=== PATIENT | male | born 1955 | race Caucasian/White ===

== ENCOUNTER 2020-01-22 00:52 | Emergency (ER) | payer MEDICARE, OTHER, SELFPAY ==
[2020-01-22 00:54] VITALS: BP 130/88; PULSE 113; RESP 20; TEMP 36.8; O2SAT 97; BMI 37.7
[2020-01-22] MEDS: 0.9% Normal Saline 1,000 ML 1000 ML IV (01:01)
[2020-01-22] MEDS: Ondansetron 4 MG/2 ML Vial IV (01:06)
[2020-01-22 01:08] LABS: Absolute Lymphocyte Count 1.21 X10^3/uL (0.83-4.51); Absolute Neutrophil Count 12.4 X10^3/uL (2.0-7.7); Basophil# 0.03 X10^3/uL; Basophil% 0.2 % (0-1); Hematocrit 42.8 % (40-54); Hemoglobin 13.7 g/dL (13.0-16.5); Lymphocyte # 1.21 X10^3/ul (4.0); Lymphocyte % 8.7 % (19-41); Mean Corpuscular Hgb 28.7 pg (27.0-32.0); Mean Corpuscular Volume 89.5 fL (80-94); Mean Platelet Vol. 12.5 fl (6.2-12.0); Monocyte# 0.31 X10^3/uL; Monocyte% 2.2 % (0-10); NRBC Flagged by Analyzer 0 % (0-5); Neutrophil # 12.35 X10^3/uL (2.7-7.7); Neutrophil % 88.4 % (47-70); Platelet Count 250 K/mm3 (150-450); RBC Distribution Width CV 12.7 % (11.6-14.6); RBC Distribution Width SD 41.1 fl (35.1-43.9); Red Blood Count 4.78 M/mm3 (4.6-6.2)
[2020-01-22] MEDS: Lidocaine 4% 5 ML Ampul 2 ML INHALATION (01:15)
[2020-01-22 01:17] LABS: International Normalized Ratio 1.2; Partial Thromboplast Time 26.1 Seconds (24.1-36.2); Prothrombin Time (Protime)PT. 14.5 SECONDS (11.7-14.9)
[2020-01-22 01:18] VITALS: PULSE 104; RESP 12
--- NOTE | 2020-01-22 01:21 | ED.DCSUM_ITS ---
- ER Visit Summary Date of Service: 01/22/20 Chief Complaint: Vomiting blood History of Present Illness: The patient is a 64 M presenting with complaints of hematemesis. Patient states he has had 6 episodes of hematemesis today. He also noted black stool this morning. He is not on anticoagulants. No history of similar symptoms in the past. He denies abdominal pain. Denies chest pain or shortness of breath. Complains of lightheadedness,no syncope. Denies other complaints. Physical Examination: Vitals are stable. Patient is afebrile. Alert no acute distress. HEENT exam is unremarkable. Neck is supple. Lungs are clear and equal bilaterally. Heart is regular rate and rhythm. Abdomen is soft nontender nondistended. No guarding or rebound Extremities are unremarkable. Skin is warm and dry. No focal neurologic deficit. Remainder of exam is unremarkable. Emergency Department Course and Treatment: EKG is sinus tachycardia rate of 104. Patient was given lidocaine aerosol. NG tube was placed. He had 100 cc of coffee-ground emesis returned. CBC shows a white count of 14, hemoglobin 13.7. Chemistries show glucose 181, BUN 42. Coags are normal. He was given IV fluids and Protonix. Discussed with Dr. Morin who recommends tertiary care center with GI coverage. Discussed with [facility] for transfer. Disposition: Transfer [facility] Impression: GI bleed This note was generated with [employer] dictation software. It may contain incorrect words, spelling, and punctuation that were not noted in review of the chart prior to signing ED Disposition - Plan for ED Patient: Referrals: Rick Zarate MD [Primary Care Provider] -
[2020-01-22 01:28] LABS: AST(SGOT) 12 U/L (15-37); Alanine Aminotransfer ALT/SGPT 25 U/L (16-61); Albumin, Serum 3.5 g/dL (3.2-5.0); Alkaline Phosphatase 75 U/L (45-117); Anion Gap 12 (5-15); BUN 42 mg/dL (7-18); Calcium,Total 8.7 mg/dL (8.5-10.1); Chloride 105 mmol/L (98-107); EST Glomerular Filtration Rate 79 mL/min (>60); Est Glom Filt Rate - Afr Amer 96 mL/min (>60); Estimated Creatinine Clearance 77.39 ml/min; Globulin 3.4 g/dL (2.2-4.2); Glucose 181 mg/dL (74-106); Potassium 4.3 mmol/L (3.5-5.1); Protein, Total 6.9 g/dL (6.4-8.2); Sodium Level 142 mmol/L (136-145)
--- NOTE | 2020-01-22 01:31 | EKG12_ITS ---
Test Reason : GI BLEED Blood Pressure : / mmHG Vent. Rate : 104 BPM Atrial Rate : 104 BPM P-R Int : 152 ms QRS Dur : 080 ms QT Int : 392 ms P-R-T Axes : 041 015 079 degrees QTc Int : 515 ms Sinus tachycardia Possible Left atrial enlargement Borderline ECG Confirmed by JUSTIN VELAZCO, SHIRA ([id number]), loan expeditor BRONWYN BOSTON ([id number]) on 01/26/2020 10:02:42 AM Referred By: Confirmed By:SHIRA ANDERSON MD
[2020-01-22] MEDS: Oxymetazoline 0.05% 1 SPRAY SPRAY.BTL NASAL (01:37)
--- NOTE | 2020-01-22 01:58 | RAD_ITS ---
HISTORY: NG TUBE PLACEMENT EXAMINATION/TECHNIQUE: XR Abdomen 1 View: Portable upright COMPARISON: Chest x-ray 09/30/2015 FINDINGS: Single portable view of the lower chest and upper abdomen. The pelvis and lower abdomen were not imaged. LINES AND TUBES: Enteric tube in place with the distal tube in the region of the stomach body. Nonobstructive bowel gas pattern. Surgical clips in the region of the gallbladder fossa. Left lower lobe 2.4 cm circumscribed nodular opacity which appears stable. RAD/Abdomen Single View (Portable) IMPRESSION: 1. Good position of the enteric tube. 2. Nonobstructive bowel gas pattern. No acute abdominal disease identified. at 0335 Reported and signed by: Alvarado Stephen MD Electronically Signed: Alavrado Stephen, at 3:34 EDT Tel , Service support ,
[2020-01-22 02:36] LABS: Hemoglobin 12.5 g/dL (13.0-16.5)
[2020-01-22 02:52] VITALS: BP 117/75; PULSE 91; RESP 15; O2SAT 88
--- NOTE | 2020-01-22 03:08 | NURSING ---
02 drop to 88%. )2 at 2lnc appilied
[2020-01-22 03:34] VITALS: BP 108/75; PULSE 88; RESP 16; O2SAT 95
[2020-01-22 04:00] VITALS: BP 128/78; PULSE 90; RESP 16; O2SAT 98
[2020-01-22 04:42] VITALS: BP 128/78; PULSE 90; RESP 16; TEMP 36.6; O2SAT 98
== END 2020-01-22 04:45 | disposition short-term general hospital (02) ==
LOC: ED 01:22
PROVIDERS: Emergency Provider Emergency Medicine; PCP Family Medicine
DX: K92.0 Hematemesis (principal); K92.1 Melena
CPT/HCPCS: 74018; 80053; 82274; 85018; 85025; 85610; 85730; 93005; 94640; 96361; 96365; 96375; 99285; J7030; J2405

== ENCOUNTER → 2020-04-17 14:18 | Outpatient (CLI) | payer MEDICARE, OTHER, SELFPAY ==
[2020-04-17 18:04] LABS: Erythrocyte Sedimentation Rate 12 mm/hr (0-20)
[2020-04-17 18:07] LABS: Absolute Lymphocyte Count 1.55 X10^3/uL (0.83-4.51); Absolute Neutrophil Count 4.9 X10^3/uL (2.0-7.7); Basophil# 0.05 X10^3/uL; Basophil% 0.7 % (0-1); Eosinophil# 0.01 X10^3/uL; Eosinophils% 0.1 % (0-5); Hematocrit 44.5 % (40-54); Hemoglobin 13.4 g/dL (13.0-16.5); Lymphocyte # 1.55 X10^3/ul (4.0); Lymphocyte % 21.6 % (19-41); Mean Corp Hgb Conc 30.1 g/dL (32-36); Mean Corpuscular Hgb 24.9 pg (27.0-32.0); Mean Corpuscular Volume 82.7 fL (80-94); Mean Platelet Vol. 11.9 fl (6.2-12.0); Monocyte# 0.67 X10^3/uL; Monocyte% 9.3 % (0-10); NRBC Flagged by Analyzer 0 % (0-5); Neutrophil # 4.86 X10^3/uL (2.7-7.7); Neutrophil % 67.9 % (47-70); Platelet Count 306 K/mm3 (150-450); RBC Distribution Width SD 45.2 fl (35.1-43.9); Red Blood Count 5.38 M/mm3 (4.6-6.2); White Blood Count 7.2 K/mm3 (4.4-11.0)
[2020-04-17 18:27] LABS: ALB/GLOB Ratio 0.7 RATIO (0.9-2.4); AST(SGOT) 21 U/L (15-37); Alanine Aminotransfer ALT/SGPT 20 U/L (16-61); Albumin, Serum 2.7 g/dL (3.2-5.0); Alkaline Phosphatase 151 U/L (45-117); Anion Gap 7 (5-15); BUN 12 mg/dL (7-18); BUN/Creat Ratio 12.1 RATIO (10-20); Chloride 102 mmol/L (98-107); Creatinine, Serum 0.99 mg/dL (0.70-1.30); EST Glomerular Filtration Rate 80 mL/min (>60); Est Glom Filt Rate - Afr Amer 97 mL/min (>60); Glucose 73 mg/dL (74-106); Magnesium 2.1 mg/dL (1.6-2.6); Potassium 3.8 mmol/L (3.5-5.1); Protein, Total 6.7 g/dL (6.4-8.2); Sodium Level 134 mmol/L (136-145)
== END ==
PROVIDERS: PCP Family Medicine; Referring Provider Family Medicine; Visit Provider Family Medicine
DX: I42.9 Cardiomyopathy, unspecified (principal)
CPT/HCPCS: 36415; 80053; 83735; 85025; 85652

== ENCOUNTER → 2020-04-18 14:33 | Outpatient (CLI) | payer MEDICARE, OTHER, SELFPAY | PROVIDERS: PCP Family Medicine; Referring Provider Family Medicine; Visit Provider Family Medicine | DX: R19.7 Diarrhea, unspecified (principal) | CPT/HCPCS: 87177; 87209; 87506 ==

== ENCOUNTER → 2020-05-08 11:43 | Outpatient (CLI) | payer MEDICARE, OTHER, SELFPAY ==
[2020-05-08 15:59] LABS: ALB/GLOB Ratio 0.7 RATIO (0.9-2.4); AST(SGOT) 41 U/L (15-37); Alanine Aminotransfer ALT/SGPT 49 U/L (16-61); Alkaline Phosphatase 127 U/L (45-117); Anion Gap 10 (5-15); BUN 15 mg/dL (7-18); BUN/Creat Ratio 12.7 RATIO (10-20); CRP, High Sensitivity Cardiac 7.01 mg/L; Calcium,Total 8.6 mg/dL (8.5-10.1); Chloride 100 mmol/L (98-107); Creatinine, Serum 1.18 mg/dL (0.70-1.30); EST Glomerular Filtration Rate 66 mL/min (>60); Est Glom Filt Rate - Afr Amer 79 mL/min (>60); Globulin 4.1 g/dL (2.2-4.2); Glucose 94 mg/dL (74-106); Magnesium 2.1 mg/dL (1.6-2.6); Potassium 4.2 mmol/L (3.5-5.1); Protein, Total 7.1 g/dL (6.4-8.2); Sodium Level 132 mmol/L (136-145)
[2020-05-08 16:20] LABS: BNP,B-Type NATRIURETIC PEPTIDE 1735.9 pg/mL (0-100)
== END ==
PROVIDERS: PCP Family Medicine; Referring Provider Family Medicine; Visit Provider Family Medicine
DX: I42.9 Cardiomyopathy, unspecified (principal); E78.5 Hyperlipidemia, unspecified; R00.0 Tachycardia, unspecified
CPT/HCPCS: 36415; 80053; 83735; 83880; 86141

== ENCOUNTER → 2020-05-17 13:32 | Outpatient (CLI) | payer MEDICARE, OTHER, SELFPAY ==
--- NOTE | 2020-05-17 13:34 | ECHOCS_ITS ---
Reason For Study: Cardiomyopathy Procedure This was a 2D Doppler, Color Flow transthoracic echocardiogram. The study was technically difficult. Contrast injection was performed. Exam performed in department. Left Ventricle Moderately dilated left ventricle. Severe global left ventricular systolic dysfunction. The estimated ejection fraction is 10 %. There is evidence of diastolic dysfunction. Right Ventricle Moderately dilated right ventricle. Moderate global right ventricular systolic dysfunction. Atria The left atrium is severely enlarged. The right atrium is moderately enlarged. No doppler evidence for ASD. Mitral Valve There is no mitral annular calcification. Mild diffuse mitral valve thickening. Mild papillary muscle dysfunction of the mitral valve. Moderate (2+) mitral valve insufficiency. Tricuspid Valve Normal tricuspid valve. Mild tricuspid valve insufficiency. Right ventricular systolic pressure estimated to be 48 mmHg. Aortic Valve Trisinus/trileaflet aortic valve. Normal aortic valve. Trivial aortic valve insufficiency. Pulmonic Valve The pulmonic valve is not well visualized. Trivial pulmonic valve insufficiency. Great Vessels Normal sized aortic root. Pericardium/Pleural Trivial pericardial effusion. There are no echocardiographic indications of cardiac tamponade. Medication Diluted definity 2ml given slow IV push to enhance endocardial definition. MMode/2D Measurements & Calculations LVIDd: 6.3 cm IVSd: 1.0 cm Ao root diam: 3.5 cm LVIDs: 5.6 cm LVPWd: 1.2 cm RVDd: 4.6 cm FS: 10.6 % LAV(MOD-bp): 104.3 ml LA A4 area: 31.1 cm2 LA dimension(2D): 5.9 cm LAV(MOD-bp) Indexed: 45.8 ml/m2 LAV(MOD-sp2): 87.3 ml LAV(MOD-sp4): 112.2 ml RA A4 area: 25.8 cm2 Doppler Measurements & Calculations MV E max erik: 110.7 cm/sec Lat Peak E' Erik: 6.3 cm/sec Med Peak E' Erik: 4.7 cm/sec MV A max erik: 37.2 cm/sec E/E' lat: 17.6 E/E' med: 23.8 MV E/A: 3.0 Ao V2 max: 85.9 cm/sec LV V1 max: 67.2 cm/sec PA V2 max: 56.5 cm/sec Ao max P.0 mmHg LV V1 max P.8 mmHg TR max erik: 332.4 cm/sec TR max P.7 mmHg Interpretation Summary The study was technically difficult. Contrast injection was performed. Moderately dilated left ventricle. Severe global left ventricular systolic dysfunction. The estimated ejection fraction is 10 %. Moderately dilated right ventricle. Moderate global right ventricular systolic dysfunction. The left atrium is severely enlarged. The right atrium is moderately enlarged. Mild diffuse mitral valve thickening. Mild papillary muscle dysfunction of the mitral valve. Moderate (2+) mitral valve insufficiency. Mild tricuspid valve insufficiency. Trivial aortic valve insufficiency. Trivial pulmonic valve insufficiency. Trivial pericardial effusion. There are no echocardiographic indications of cardiac tamponade. Right ventricular systolic pressure estimated to be 48 mmHg. There is evidence of diastolic dysfunction. Ordering Physician: Rick Zarate Referring Physician: Rick Zarate Performed By: Katty Watt RDCS
== END ==
PROVIDERS: PCP Family Medicine; Referring Provider Family Medicine; Visit Provider Family Medicine
DX: I42.9 Cardiomyopathy, unspecified (principal)
CPT/HCPCS: 93306; Q9957; A4216; C8929

== ENCOUNTER → 2020-07-13 12:44 | Outpatient (CLI) | payer MEDICARE, OTHER, SELFPAY ==
[2020-07-13 15:11] LABS: Absolute Lymphocyte Count 2.78 X10^3/uL (0.83-4.51); Absolute Neutrophil Count 5.2 X10^3/uL (2.0-7.7); Basophil# 0.08 X10^3/uL; Basophil% 0.9 % (0-1); Eosinophil# 0.03 X10^3/uL; Eosinophils% 0.3 % (0-5); Hematocrit 46.4 % (40-54); Hemoglobin 13.9 g/dL (13.0-16.5); Lymphocyte # 2.78 X10^3/ul (4.0); Lymphocyte % 31.5 % (19-41); Mean Corpuscular Hgb 22.6 pg (27.0-32.0); Mean Corpuscular Volume 75.3 fL (80-94); Mean Platelet Vol. 10.5 fl (6.2-12.0); Monocyte# 0.74 X10^3/uL; Monocyte% 8.4 % (0-10); NRBC Flagged by Analyzer 0 % (0-5); Neutrophil # 5.17 X10^3/uL (2.7-7.7); Neutrophil % 58.7 % (47-70); POSITIVE MORPHOLOGY YES; Platelet Count 391 K/mm3 (150-450); RBC Distribution Width CV 22.6 % (11.6-14.6); RBC Distribution Width SD 57.1 fl (35.1-43.9); Red Blood Count 6.16 M/mm3 (4.6-6.2); White Blood Count 8.8 K/mm3 (4.4-11.0)
[2020-07-13 15:17] LABS: Differential Indicated SCAN CRITERIA MET
[2020-07-13 15:50] LABS: BNP,B-Type NATRIURETIC PEPTIDE 2159.2 pg/mL (0-100)
[2020-07-13 15:58] LABS: Anisocytosis RARE; Microcytosis RARE; Ovalocyte RARE; Platelet Estimate ADEQUATE (ADEQ); Target Cells RARE
[2020-07-13 16:14] LABS: ALB/GLOB Ratio 0.8 RATIO (0.9-2.4); AST(SGOT) 18 U/L (15-37); Alanine Aminotransfer ALT/SGPT 19 U/L (16-61); Albumin, Serum 3.1 g/dL (3.2-5.0); Alkaline Phosphatase 193 U/L (45-117); Anion Gap 9 (5-15); BUN 19 mg/dL (7-18); BUN/Creat Ratio 18.3 RATIO (10-20); Calcium,Total 8.9 mg/dL (8.5-10.1); Chloride 102 mmol/L (98-107); Creatinine, Serum 1.04 mg/dL (0.70-1.30); EST Glomerular Filtration Rate 76 mL/min (>60); Est Glom Filt Rate - Afr Amer 92 mL/min (>60); Globulin 3.9 g/dL (2.2-4.2); Glucose 79 mg/dL (74-106); Potassium 4.5 mmol/L (3.5-5.1); Sodium Level 134 mmol/L (136-145); Uric Acid 8.7 mg/dL (3.5-7.2)
== END ==
PROVIDERS: PCP Family Medicine; Referring Provider Family Medicine; Visit Provider Family Medicine
DX: I42.9 Cardiomyopathy, unspecified (principal); M10.9 Gout, unspecified
CPT/HCPCS: 36415; 80053; 83880; 84550; 85025

== ENCOUNTER → 2020-11-07 08:45 | Outpatient (CLI) | payer MEDICARE, OTHER, SELFPAY ==
[2020-11-07 10:38] LABS: Anion Gap 8 (5-15); BUN 18 mg/dL (7-18); BUN/Creat Ratio 21.2 RATIO (10-20); Calcium,Total 8.8 mg/dL (8.5-10.1); Chloride 100 mmol/L (98-107); Creatinine, Serum 0.85 mg/dL (0.70-1.30); EST Glomerular Filtration Rate 96 mL/min (>60); Est Glom Filt Rate - Afr Amer 116 mL/min (>60); Glucose 77 mg/dL (74-106); Potassium 4.1 mmol/L (3.5-5.1); Sodium Level 136 mmol/L (136-145)
== END ==
PROVIDERS: PCP Family Medicine
DX: I50.41 Acute combined systolic (congestive) and diastolic (congestive) heart failure (principal); I25.10 Atherosclerotic heart disease of native coronary artery without angina pectoris; I95.9 Hypotension, unspecified
CPT/HCPCS: 36415; 80048

== ENCOUNTER 2021-06-27 09:57 | Outpatient (CLI) | payer MEDICARE, OTHER, SELFPAY ==
[2021-06-27 12:25] LABS: Absolute Neutrophil Count 4.9 X10^3/uL (2.0-7.7); Basophil# 0.07 X10^3/uL; Basophil% 0.9 % (0-1); Eosinophil# 0.12 X10^3/uL; Eosinophils% 1.5 % (0-5); Hematocrit 43.4 % (40-54); Hemoglobin 14.8 g/dL (13.0-16.5); Lymphocyte % 29.7 % (19-41); Mean Corp Hgb Conc 34.1 g/dL (32-36); Mean Platelet Vol. 11.1 fl (6.2-12.0); Monocyte# 0.52 X10^3/uL; Monocyte% 6.4 % (0-10); NRBC Flagged by Analyzer 0 % (0-5); Neutrophil # 4.91 X10^3/uL (2.7-7.7); Neutrophil % 60.8 % (47-70); Platelet Count 294 K/mm3 (150-450); RBC Distribution Width CV 12.2 % (11.6-14.6); RBC Distribution Width SD 40.7 fl (35.1-43.9); Red Blood Count 4.77 M/mm3 (4.6-6.2); White Blood Count 8.1 K/mm3 (4.4-11.0)
[2021-06-27 12:49] LABS: ALB/GLOB Ratio 0.8 RATIO (0.9-2.4); AST(SGOT) 33 U/L (15-37); Alanine Aminotransfer ALT/SGPT 51 U/L (16-61); Albumin, Serum 3.4 g/dL (3.2-5.0); Alkaline Phosphatase 94 U/L (45-117); BUN 17 mg/dL (7-18); BUN/Creat Ratio 17.5 RATIO (10-20); Chloride 103 mmol/L (98-107); Cholesterol 145 mg/dL (200); Creatinine, Serum 0.97 mg/dL (0.70-1.30); EST Glomerular Filtration Rate 82 mL/min (>60); Est Glom Filt Rate - Afr Amer 99 mL/min (>60); Globulin 4.5 g/dL (2.2-4.2); Glucose 95 mg/dL (74-106); Protein, Total 7.9 g/dL (6.4-8.2); Sodium Level 135 mmol/L (136-145); Triglycerides 223 mg/dL
[2021-06-27 12:50] LABS: Anion Gap 4 (5-15); High Density Lipoprotein 26 mg/dL; PSA,Total - Annual Screen 6.97 ng/mL (0.00-4.00); Very Low Density Lipoprotein 45 mg/dL (5-40)
== END 2021-06-27 23:59 | disposition home or self-care (01) ==
LOC: MTLAB 10:00
PROVIDERS: PCP Family Medicine; Referring Provider Registered Nurse; Visit Provider Registered Nurse
DX: Z00.00 Encounter for general adult medical examination without abnormal findings (principal); I25.10 Atherosclerotic heart disease of native coronary artery without angina pectoris; Z12.5 Encounter for screening for malignant neoplasm of prostate
CPT/HCPCS: 36415; 80053; 80061; 84153; 85025; G0103

== ENCOUNTER → 2021-11-01 | Outpatient (CLI) | payer MEDICARE, OTHER, SELFPAY ==
--- NOTE | 2021-11-01 16:28 | RAD_ITS ---
STUDY: X-RAY - RIGHT FOOT CLINICAL: Male, 65 years old. trauma to foot and pain TECHNIQUE: 3 view(s) of the foot. COMPARISON: None. FINDINGS: Normal talus, calcaneus, and tarsal bones. Normal visualized subtalar, talonavicular, calcaneocuboid, tarsal and tarsometatarsal articulations. Normal metatarsi. Normal metatarsophalangeal joint of the great toe. Normal tibial and fibular sesamoid bones. Normal interphalangeal joint of the great toe. Normal phalanges of the great toe. Normal second through fifth metatarsophalangeal joints. Normal interphalangeal joints and phalanges of the lesser toes. The soft tissue structures are unremarkable. RAD/Foot min 3 Views IMPRESSION: Normal x-ray examination of the foot. Electronically Signed: Yunier Pearl MD at 16:41 EDT ,
== END | disposition home or self-care (01) ==
LOC: MTRAD 16:18
PROVIDERS: PCP Family Medicine; Referring Provider Family Medicine; Visit Provider Family Medicine
DX: M79.671 Pain in right foot (principal)
CPT/HCPCS: 73630

== ENCOUNTER → 2021-11-15 | Outpatient (CLI) | payer MEDICARE, OTHER, SELFPAY ==
[2021-11-15 12:29] LABS: Absolute Lymphocyte Count 2.51 X10^3/uL (0.83-4.51); Absolute Neutrophil Count 4.8 X10^3/uL (2.0-7.7); Basophil# 0.07 X10^3/uL; Basophil% 0.9 % (0-1); Eosinophil# 0.09 X10^3/uL; Eosinophils% 1.1 % (0-5); Hematocrit 45.1 % (40-54); Hemoglobin 14.7 g/dL (13.0-16.5); Lymphocyte # 2.51 X10^3/ul (0.83-4.51); Mean Corp Hgb Conc 32.6 g/dL (32-36); Mean Corpuscular Hgb 30.2 pg (27.0-32.0); Mean Corpuscular Volume 92.8 fL (80-94); Monocyte% 7.4 % (0-10); NRBC Flagged by Analyzer 0 % (0-5); Neutrophil % 59.4 % (47-70); Platelet Count 229 K/mm3 (150-450); RBC Distribution Width CV 12.8 % (11.6-14.6); RBC Distribution Width SD 43.8 fl (35.1-43.9); Red Blood Count 4.86 M/mm3 (4.6-6.2); White Blood Count 8.1 K/mm3 (4.4-11.0)
[2021-11-15 12:53] LABS: International Normalized Ratio 1.4; Prothrombin Time (Protime)PT. 17.1 SECONDS (11.7-14.9)
[2021-11-15 13:10] LABS: Vitamin D,25 Hydroxy 22.9 ng/mL
[2021-11-15 13:13] LABS: ALB/GLOB Ratio 0.9 RATIO (0.9-2.4); AST(SGOT) 24 U/L (15-37); Alanine Aminotransfer ALT/SGPT 36 U/L (16-61); Albumin, Serum 3.5 g/dL (3.2-5.0); Alkaline Phosphatase 84 U/L (45-117); Anion Gap 6 (5-15); BUN 20 mg/dL (7-18); BUN/Creat Ratio 19.8 RATIO (10-20); Chloride 104 mmol/L (98-107); Cholesterol 185 mg/dL (200); Creatinine, Serum 1.01 mg/dL (0.70-1.30); EST Glomerular Filtration Rate 78 mL/min (>60); Est Glom Filt Rate - Afr Amer 95 mL/min (>60); Globulin 3.9 g/dL (2.2-4.2); Glucose 94 mg/dL (74-106); High Density Lipoprotein 31 mg/dL; Protein, Total 7.4 g/dL (6.4-8.2); Sodium Level 136 mmol/L (136-145); Triglycerides 303 mg/dL; Very Low Density Lipoprotein 61 mg/dL (5-40)
[2021-11-15 13:19] LABS: BNP,B-Type NATRIURETIC PEPTIDE 48.1 pg/mL (0-100)
== END | disposition home or self-care (01) ==
LOC: MFPLAB 10:16
PROVIDERS: PCP Family Medicine; Visit Provider Family Medicine
DX: I42.9 Cardiomyopathy, unspecified (principal); I10 Essential (primary) hypertension; M10.9 Gout, unspecified; E55.9 Vitamin D deficiency, unspecified; E78.5 Hyperlipidemia, unspecified; I38 Endocarditis, valve unspecified
CPT/HCPCS: 36415; 80053; 80061; 82306; 83735; 83880; 84443; 84550; 85025; 85610

== ENCOUNTER → 2022-10-10 | Outpatient (CLI) | payer MEDICARE, OTHER, SELFPAY ==
[2022-10-10 15:32] LABS: Microalbumin,Random Urine 7.5 mg/L (NO RANGE EST.); Microalbumin:Creatinine Ratio 3.8 mg/g CRE (<30 mg/g CRE)
[2022-10-10 15:55] LABS: AST(SGOT) 21 U/L (15-37); Alanine Aminotransfer ALT/SGPT 26 U/L (16-61); Albumin, Serum 3.6 g/dL (3.2-5.0); Alkaline Phosphatase 76 U/L (45-117); Anion Gap 7 (5-15); BUN 15 mg/dL (7-18); BUN/Creat Ratio 16.9 RATIO (10-20); Calcium,Total 8.7 mg/dL (8.5-10.1); Chloride 106 mmol/L (98-107); Cholesterol 169 mg/dL (200); Creatinine, Serum 0.89 mg/dL (0.70-1.30); EST Glomerular Filtration Rate 91 mL/min (>60); Est Glom Filt Rate - Afr Amer 110 mL/min (>60); Globulin 3.5 g/dL (2.2-4.2); Glucose 88 mg/dL (74-106); High Density Lipoprotein 29 mg/dL; Potassium 4.3 mmol/L (3.5-5.1); Protein, Total 7.1 g/dL (6.4-8.2); Sodium Level 139 mmol/L (136-145); Triglycerides 296 mg/dL; Very Low Density Lipoprotein 59 mg/dL (5-40)
== END | disposition home or self-care (01) ==
LOC: MFPLAB 11:52
PROVIDERS: PCP Family Medicine; Visit Provider Family Medicine
DX: I10 Essential (primary) hypertension (principal)
CPT/HCPCS: 36415; 80053; 80061; 82043; 82570

== ENCOUNTER → 2023-05-23 | Outpatient (CLI) | payer MEDICARE, OTHER, SELFPAY ==
[2023-05-23 12:45] LABS: Absolute Lymphocyte Count 2.31 X10^3/uL (0.83-4.51); Absolute Neutrophil Count 4.8 X10^3/uL (2.0-7.7); Basophil# 0.06 X10^3/uL; Basophil% 0.7 % (0-1); Eosinophil# 0.09 X10^3/uL; Eosinophils% 1.1 % (0-5); Hematocrit 51.5 % (40-54); Hemoglobin 16.4 g/dL (13.0-16.5); Lymphocyte # 2.31 X10^3/ul (0.83-4.51); Lymphocyte % 28.7 % (19-41); Mean Corp Hgb Conc 31.8 g/dL (32-36); Mean Corpuscular Hgb 29.3 pg (27.0-32.0); Mean Platelet Vol. 12.4 fl (6.2-12.0); Monocyte# 0.76 X10^3/uL; Monocyte% 9.5 % (0-10); NRBC Flagged by Analyzer 0 % (0-5); Neutrophil # 4.77 X10^3/uL (2.7-7.7); Neutrophil % 59.4 % (47-70); Platelet Count 246 K/mm3 (150-450); RBC Distribution Width CV 13.4 % (11.6-14.6); RBC Distribution Width SD 45.1 fl (35.1-43.9)
[2023-05-23 13:01] LABS: Microalbumin,Random Urine 45.9 mg/L (NO RANGE EST.)
[2023-05-23 13:23] LABS: ALB/GLOB Ratio 0.9 RATIO (0.9-2.4); AST(SGOT) 18 U/L (15-37); Alanine Aminotransfer ALT/SGPT 27 U/L (16-61); Albumin, Serum 3.7 g/dL (3.2-5.0); Alkaline Phosphatase 88 U/L (45-117); Anion Gap 6 (5-15); BUN 18 mg/dL (7-18); BUN/Creat Ratio 14.9 RATIO (10-20); Calcium,Total 9.6 mg/dL (8.5-10.1); Chloride 101 mmol/L (98-107); Cholesterol 219 mg/dL (200); Creatinine, Serum 1.21 mg/dL (0.70-1.30); EST Glomerular Filtration Rate 63 mL/min (>60); Est Glom Filt Rate - Afr Amer 76 mL/min (>60); Globulin 4.3 g/dL (2.2-4.2); Glucose 82 mg/dL (74-106); High Density Lipoprotein 30 mg/dL; Potassium 4.7 mmol/L (3.5-5.1); Sodium Level 135 mmol/L (136-145); Triglycerides 347 mg/dL; Uric Acid 8.2 mg/dL (3.5-7.2); Very Low Density Lipoprotein 69 mg/dL (5-40)
== END | disposition home or self-care (01) ==
LOC: MFPLAB 10:08
PROVIDERS: PCP Family Medicine; Visit Provider Family Medicine
DX: I42.9 Cardiomyopathy, unspecified (principal); M10.9 Gout, unspecified; I10 Essential (primary) hypertension; R97.20 Elevated prostate specific antigen [PSA]; E78.5 Hyperlipidemia, unspecified; I25.10 Atherosclerotic heart disease of native coronary artery without angina pectoris
CPT/HCPCS: 36415; 80053; 80061; 82043; 84153; 84550; 85025

== ENCOUNTER 2023-07-11 07:23 | Day surgery (SDC) | payer MEDICARE, OTHER, SELFPAY ==
[2023-07-11] VITALS (7 sets, daily range): BP systolic 121–146; BP diastolic 64–99; PULSE 72–92; RESP 16; TEMP 36.1–36.9; O2SAT 93–96; BMI 37.2
--- OUTSIDE RECORDS SUMMARY | 2023-07-11 07:28 | XMS RPT_ITS | CCD ---
Author Name Unknown Address [address] [place] [address] Organization [facility] Care Team Providers Care Lawyer Criminal Name Role Phone Elliot VELAZCO, Cristofer Sprague Primary Care Provider SYSTEM, PROVIDER NOT IN Referring Unavaila ble SYSTEM, PROVIDER NOT IN Attending Unavaila ble CRISTOFER ZARATE Primary Care Unavailable Cristofer Zarate MD Primary Care Provider Cristofer Zarate MD Primary Care Provider VERN BLUNT Attending Unavailab VERN Lagunas Referring Unavailab le ELLIOT, CRISTOFER FROY Primary Care Unavailable VERN BLUNT Attending Unavailab le VERN BLUNT Referring Unavailab le ZARATE, CRISTOFER FROY Primary Care Unavailable VERN BLUNT Referring Unavailab le VERN BLUNT Attending Unavailab tae ZARATE, CRISTOFER FROY Primary Care Unavailable ZARATE, CRISTOFER FROY Primary Care Unavailable BERNICE LEO Attending Unavailable BERNICE LEO Referring Unavailable IGNACIO OLIVO Attending Unavailable IGNACIO OLIVO Referring Unavailable ZARATE, CRISTOFER FROY Primary Care Unavailable VERN BLUNT Referring Unavailab le ZARATE, CRISTOFER FROY Primary Care Unavailable VERN BLUNT Attending Rocky Simmons MD, Cristofer Sprague Primary Care Provider CRISTOFER ZARATE Primary Care Unavailable VERN BLUNT Attending Unavailab le VERN BLUNT Attending Unavailab le ELLIOT, CRISTOFER FROY Primary Care Unavailable Allergies Allergy Classification Reported Allergen(s) Allergy Type Date of Onset Reaction(s) Facility Adrenergic Antagonists (18 sources) carvedilol; Translations: [CARVEDILOL] Drug Allergy 1 [facility] Angiotensin Converting Enzyme (TRELL) Inhibitors (18 sources) Lisinopril; Translations: [LISINOPRIL] Drug Allergy 1 [facility] Antihistamines (18 sources) hydrOXYzine; Translations: [HYDROXYZINE] Drug Allergy 1 [facility] Metoprolol (8 sources) Metoprolol; Translations: [METOPROLOL] Drug Allergy 1 GI Intolerance [facility] Opioid Agonists (18 sources) Morphine; Translations: [MORPHINE] Drug Allergy 1 [facility] Serotonin Reuptake Inhibitors (SSRIs) (18 sources) Citalopram; Translations: [CITALOPRAM] Drug Allergy 1 [facility] Unclassified (20 sources) Bee Venom Protein (Honey Bee); Translations: [BEE VENOM PROTEIN (HONEY BEE)] Propensity to adverse reactions to drug 1 [facility] (20 sources) carvedilol; Translations: [CARVEDILOL] Drug Allergy 1 [facility] (20 sources) Citalopram; Translations: [CITALOPRAM] Drug Allergy 1 [facility] (20 sources) hydrOXYzine; Translations: [HYDROXYZINE] Drug Allergy 1 [facility] (20 sources) Lisinopril; Translations: [LISINOPRIL] Drug Allergy 1 [facility] (20 sources) Metoprolol; Translations: [METOPROLOL] Drug Allergy 1 GI Intolerance [facility] (20 sources) Morphine; Translations: [MORPHINE] Drug Allergy 1 [facility] Medications Current Medications Medication Drug Class(es) Dates Sig (Normalized) Sig (Original) atorvastatin 40 mg oral tablet (6 sources) HMG-CoA Reductase Inhibitor Start: 10-08-2020 End: 2020 take 1 tablet by mouth once daily atorvastatin (LIPITOR) 40 MG tablet Take 1 (one) tablet (40 mg total) by mouth nightly . 30 tablet 10/09/2020 10/18/2020 Discontinued (Error) bisoprolol fumarate 5 mg oral tablet (20 sources) beta-Adrenergic Paz Start: 03-31-2023 End: 03-26-2024 take 1 tablet by mouth once daily bisoprolol (ZEBETA) 5 MG tablet Take 1 (one) tablet (5 mg total) by mouth daily . 90 tablet 3 04/01/2023 03/26/2024 Active Completed/Discontinued Medications Medication Drug Class(es) Dates Sig (Normalized) Sig (Original) acetaminophen 325 mg oral tablet (1 source) Start: 10-02-2020 End: 10-09-2020 take 1 tablet by mouth every four hours as needed for pain and headache 650 mg, Oral, Every 4 hours PRN, mild pain, fever 100.4 F or greater, headaches, Starting on Fri10/02/20 at 1549 allopurinol 100 mg oral tablet (20 sources) Xanthine Oxidase Inhibitor Start: 10-06-2020 End: 03-13-2021 take 100 mg by mouth once daily 100 mg, Oral, Daily, First dose on Fri10/06/20 at 1630 apixaban 5 mg oral tablet (9 sources) Factor Xa Inhibitor End: 10-09-2020 take 1 tablet by mouth twice daily apixaban (ELIQUIS) 5 mg Tab Take 5 mg by mouth 2 (two) times a day . 0 10/09/2020 Discontinued (Stop Taking at Discharge) aspirin 81 mg delayed release oral tablet (1 source) Platelet Aggregation Inhibitor, Nonsteroidal Anti-inflammatory Drug Start: 10-06-2020 End: 10-09-2020 aspirin EC tablet 81 mg 0.4 ml enoxaparin sodium 100 mg/ml prefilled syringe (1 source) Low Molecular Weight Heparin Start: 10-02-2020 End: 10-09-2020 inject 40 mg by subcutaneous injection once daily 40 mg, Subcutaneous, Daily, First dose on Fri10/02/20 at 1800 Administer in abdomen unless otherwise directed by prescriber. Notify physician if patient refuses. Indication: VTE Prophylaxis furosemide 20 mg oral tablet (20 sources) Loop Diuretic Start: 11-13-2020 End: 03-13-2021 take 1 tablet by mouth once daily furosemide (LASIX) 20 MG tablet Take 1 (one) tablet (20 mg total) by mouth daily . 60 tablet 11 11/13/2020 03/13/2021 Discontinued (Error) Problems Active Problems Problem Classification Problem Date Documented Date Episodic/Chronic Congestive heart failure; nonhypertensive (20 sources) Acute left-sided congestive heart failure; Translations: [Left ventricular failure, unspecified] Onset: 10-02-2020 Chronic Coronary atherosclerosis and other heart disease (20 sources) Coronary arteriosclerosis in [place] artery; Translations: [Atherosclerotic heart disease of [place] coronary artery without angina pectoris] Onset: 10-26-2020 Chronic Coronary atherosclerosis and other heart disease (1 source) Patient post percutaneous transluminal coronary angioplasty; Translations: [Coronary angioplasty status] Episodic Disorders of lipid metabolism (20 sources) Hyperlipidemia; Translations: [Hyperlipidemia, unspecified] Onset: 11-28-2020 Chronic Heart valve disorders (2 sources) Mitral valve regurgitation; Translations: [Nonrheumatic mitral (valve) insufficiency] Chronic Other and ill-defined heart disease (1 source) Left ventricular cardiac dysfunction; Translations: [Heart disease, unspecified] Chronic Angelina-; endo-; and myocarditis; cardiomyopathy (except that caused by tuberculosis or sexually transmitted disease) (3 sources) Cardiomyopathy; Translations: [Cardiomyopathy, unspecified] Chronic Past or Other Problems Problem Classification Problem Date Documented Da te Episodic/Chronic Other circulatory disease (20 sources) Low blood pressure; Translations: [Hypotension, unspecified] Onset: 10-26-2020 Episodic Results Test Name Value Interpretation Reference Range Facil ity Vital Signs Date Time Vital Sign Value Performing Clinician Faci lity 07-15-2022 10:31-0500 Body mass index (BMI) [Ratio] 38.1 kg/m2 Vern Blunt MD Work Phone: [facility] 07-15-2022 10:31-0500 Body weight 120.43 kg Vern Blunt MD Work Phone: [facility] 07-15-2022 10:31-0500 Diastolic blood pressure 82 mm[Hg] Vern Blunt MD Work Phone: [facility] 07-15-2022 10:31-0500 Heart rate 78 /min Vern Blunt MD Work Phone: [facility] 07-15-2022 10:31-0500 SaO2% (BldA) [Mass fraction] 95 % Vern Blunt MD Work Phone: [facility] 07-15-2022 10:31-0500 Systolic blood pressure 132 mm[Hg] Vern Blunt MD Work Phone: [facility] 11-09-2021 10:36-0400 Body height 177.8 cm Vern Blunt MD Work Phone: [facility] 11-09-2021 10:36-0400 Body mass index (BMI) [Ratio] 36.16 kg/m2 Vern Blunt MD Work Phone: [facility] 11-09-2021 10:36-0400 Body weight 114.31 kg Vern Blunt MD Work Phone: [facility] 11-09-2021 10:36-0400 Diastolic blood pressure 79 mm[Hg] Vern Blunt MD Work Phone: [facility] 11-09-2021 10:36-0400 Heart rate 61 /min Vern Blunt MD Work Phone: [facility] 11-09-2021 10:36-0400 SaO2% (BldA) [Mass fraction] 97 % Vern Blunt MD Work Phone: [facility] 11-09-2021 10:36-0400 Systolic blood pressure 129 mm[Hg] Vern Blunt MD Work Phone: [facility] 05-17-2021 08:37-0500 Body mass index (BMI) [Ratio] 34.44 kg/m2 Vern Blunt MD Work Phone: [facility] 05-17-2021 08:37-0500 Body weight 108.86 kg Vern Blunt MD Work Phone: [facility] 05-17-2021 08:37-0500 Diastolic blood pressure 71 mm[Hg] Vern Blunt MD Work Phone: [facility] 05-17-2021 08:37-0500 Heart rate 64 /min Vern Blunt MD Work Phone: [facility] 05-17-2021 08:37-0500 SaO2% (BldA) [Mass fraction] 94 % Vern Blunt MD Work Phone: [facility] 05-17-2021 08:37-0500 Systolic blood pressure 116 mm[Hg] Vern Blunt MD Work Phone: [facility] 03-13-2021 11:23-0400 Body mass index (BMI) [Ratio] 32.66 kg/m2 Asuncion Valdivia RN [facility] 03-13-2021 11:23-0400 Body weight 103.24 kg Asuncion Valdivia RN [facility] 03-13-2021 11:23-0400 Diastolic blood pressure 68 mm[Hg] Asuncion Valdivia RN [facility] 03-13-2021 11:23-0400 Heart rate 63 /min Asuncion Valdivia RN [facility] 03-13-2021 11:23-0400 SaO2% (BldA) [Mass fraction] 97 % Asuncion Valdivia RN [facility] 03-13-2021 11:23-0400 Systolic blood pressure 118 mm[Hg] Asuncion Valdivia RN [facility] 12-12-2020 11:44-0400 Diastolic blood pressure 64 mm[Hg] Bernice Kylee DOCUMENT MANAGEMENT SPECIALIST Work Phone: [facility] 12-12-2020 11:44-0400 Systolic blood pressure 108 mm[Hg] Bernice Kylee CN S Work Phone: [facility] 12-12-2020 11:25-0400 Body height 177.8 cm Bernice Kylee DOCUMENT MANAGEMENT SPECIALIST Work Phone: [facility] 12-12-2020 11:25-0400 Body mass index (BMI) [Ratio] 30.99 kg/m2 Bernice Kylee DOCUMENT MANAGEMENT SPECIALIST Work Phone: [facility] 12-12-2020 11:25-0400 Body weight 97.98 kg Bernice Kylee DOCUMENT MANAGEMENT SPECIALIST Work Phone: [facility] 12-12-2020 11:25-0400 Heart rate 60 /min Bernice Kylee DOCUMENT MANAGEMENT SPECIALIST Work Phone: [facility] 12-12-2020 11:25-0400 SaO2% (BldA) [Mass fraction] 96 % Bernice Kylee DOCUMENT MANAGEMENT SPECIALIST Work Phone: [facility] 11-30-2020 09:54-0400 Body height 181.6 cm Vern Blunt MD Work Phone: [facility] 11-30-2020 09:54-0400 Body mass index (BMI) [Ratio] 29.57 kg/m2 Vern Blunt MD Work Phone: [facility] 11-30-2020 09:54-0400 Body weight 97.52 kg Vern Blunt MD Work Phone: [facility] 11-30-2020 09:54-0400 Diastolic blood pressure 62 mm[Hg] Vern Blunt MD Work Phone: [facility] 11-30-2020 09:54-0400 Heart rate 72 /min Vern Blunt MD Work Phone: [facility] 11-30-2020 09:54-0400 Respiratory rate 14 /min Vern Blunt MD Work Phone: [facility] 11-30-2020 09:54-0400 SaO2% (BldA) [Mass fraction] 97 % Vern Blunt MD Work Phone: [facility] 11-30-2020 09:54-0400 Systolic blood pressure 104 mm[Hg] Vern Blunt MD Work Phone: [facility] 11-13-2020 14:28-0400 Body height 181.6 cm Asuncion Valdivia RN [facility] 11-13-2020 14:28-0400 Body mass index (BMI) [Ratio] 29.57 kg/m2 Asuncion Valdivia RN [facility] 11-13-2020 14:28-0400 Body weight 97.52 kg Asuncion Valdivia RN [facility] 11-13-2020 14:28-0400 Diastolic blood pressure 70 mm[Hg] Asuncion Valdivia RN [facility] 11-13-2020 14:28-0400 Heart rate 56 /min Asuncion Valdivia RN [facility] 11-13-2020 14:28-0400 SaO2% (BldA) [Mass fraction] 97 % Asuncion Valdivia RN [facility] 11-13-2020 14:28-0400 Systolic blood pressure 109 mm[Hg] Asuncion Valdivia RN [facility] 10-26-2020 10:44-0400 Body height 177.8 cm Bernice Kylee DOCUMENT MANAGEMENT SPECIALIST Work Phone: [facility] 10-26-2020 10:44-0400 Body mass index (BMI) [Ratio] 35.28 kg/m2 Bernice Kylee DOCUMENT MANAGEMENT SPECIALIST Work Phone: [facility] 10-26-2020 10:44-0400 Body weight 111.54 kg Bernice Kylee DOCUMENT MANAGEMENT SPECIALIST Work Phone: [facility] 10-26-2020 10:44-0400 Diastolic blood pressure 79 mm[Hg] Bernice Kylee DOCUMENT MANAGEMENT SPECIALIST Work Phone: [facility] 10-26-2020 10:44-0400 Heart rate 62 /min Bernice Kylee DOCUMENT MANAGEMENT SPECIALIST Work Phone: [facility] 10-26-2020 10:44-0400 Respiratory rate 14 /min Bernice Kylee DOCUMENT MANAGEMENT SPECIALIST Work Phone: [facility] 10-26-2020 10:44-0400 SaO2% (BldA) [Mass fraction] 98 % Bernice Kylee DOCUMENT MANAGEMENT SPECIALIST Work Phone: [facility] 10-26-2020 10:44-0400 Systolic blood pressure 113 mm[Hg] Bernice Kylee CN S Work Phone: [facility] 10-18-2020 10:19-0400 Body mass index (BMI) [Ratio] 35.44 kg/m2 Ignacio Olivo LUBRICATION SERVICER Work Phone: [facility] 10-18-2020 10:19-0400 Body weight 112.04 kg Ignacio Olivo LUBRICATION SERVICER Work Phone: [facility] 10-18-2020 10:19-0400 Diastolic blood pressure 75 mm[Hg] Ignacio Olivo LUBRICATION SERVICER Work Phone: [facility] 10-18-2020 10:19-0400 Heart rate 65 /min Ignacio Olivo LUBRICATION SERVICER Work Phone: [facility] 10-18-2020 10:19-0400 SaO2% (BldA) [Mass fraction] 99 % Ignacio Olivo CNP Work Phone: [facility] 10-18-2020 10:19-0400 Systolic blood pressure 101 mm[Hg] Ignacio Olivo LUBRICATION SERVICER Work Phone: [facility] 10-09-2020 13:34-0400 Diastolic blood pressure 78 mm[Hg] Ramy Erwin MD Work Phone: [facility] 10-09-2020 13:34-0400 Systolic blood pressure 115 mm[Hg] Ramy Erwin MD Work Phone: [facility] 10-09-2020 13:33-0400 Heart rate 68 /min Ramy Erwin MD Work Phone: [facility] 10-09-2020 11:46-0400 Body temperature 97.5 [degF] Ramy Erwin MD Work Phone: [facility] 10-09-2020 11:46-0400 Respiratory rate 15 /min Ramy Erwin MD Work Phone: [facility] 10-09-2020 11:46-0400 SaO2% (BldA) [Mass fraction] 98 % Ramy Erwin MD Work Phone: [facility] 10-08-2020 09:00-0400 Body mass index (BMI) [Ratio] 33.78 kg/m2 Ramy Erwin MD Work Phone: [facility] 10-08-2020 09:00-0400 Body weight 106.8 kg Ramy Erwin MD Work Phone: [facility] 10-02-2020 10:37-0400 Body height 177.8 cm Ramy Erwin MD Work Phone: [facility] Encounters Encounter Date Encounter Type Care Provider Facility Start: 03-31-2023 Estela Jones RN [facility] Procedures Date Procedure Procedure Detail Performing Clinician Start: 07-15-2022 Ecg routine ecg w/least 12 lds w/i&r Vern Blunt MD Work Phone: Start: 10-09-2020 Prothrombin time Nissa Claudia Barry CONSTRUCTION EQUIPMENT MECHANIC HELPER Work Phone: Start: 10-09-2020 Cardiac mri w/wo contrast & further seq Ignacio Palomozabeth Olivo LUBRICATION SERVICER Work Phone: Start: 10-09-2020 Basic metabolic panel calcium total mAberly Lira LUBRICATION SERVICER Work Phone: Start: 10-08-2020 Comprehensive metabolic panel Amberly Lira LUBRICATION SERVICER Work Phone: Start: 10-08-2020 Hepatic function panel Ignaciotrey webster LUBRICATION SERVICER Work Phone: Start: 10-07-2020 Basic metabolic panel calcium total Amberly Lira LUBRICATION SERVICER Work Phone: Start: 10-06-2020 Cardiac catheterization Ignacio Banegasbesalina Olivo LUBRICATION SERVICER Work Phone: Start: 10-06-2020 Coagulation time activated Trip Morris MD Work Phone: Start: 10-06-2020 Basic metabolic panel calcium total Amberly Lira LUBRICATION SERVICER Work Phone: Start: 10-06-2020 Lipid panel Ignacio Olivo LUBRICATION SERVICER Work Phone: Start: 10-05-2020 Basic metabolic panel calcium total Amberly Lira LUBRICATION SERVICER Work Phone: Start: 10-04-2020 Basic metabolic panel calcium total Amberly Lira LUBRICATION SERVICER Work Phone: Start: 10-03-2020 Electrocardiogram Provider Not In Syst em Start: 10-03-2020 Comprehensive metabolic panel Trip mena MD Work Phone: Start: 10-02-2020 Urnls dip stick/tablet reagent auto microscopy Ramy Erwin MD Work Phone: Start: 10-02-2020 Radiologic exam chest single view Ramy Erwin MD Work Phone: Start: 05-17-2021 SARS-CoV-2 (COVID-19) RNA [Presence] in Respiratory specimen by FLORENTIN with probe detection Ramy Erwin MD Work Phone: Start: 10-02-2020 LIGHT GREEN TOP Triage Protocol Emergency MD Start: 10-02-2020 SORENSEN TOP Triage Protocol Emergency MD Start: 10-02-2020 Hepatic function panel Ramy Erwin MD Work Phone: Start: 10-02-2020 Natriuretic peptide Ramy Erwin MD Work Phone: Start: 10-02-2020 RAINBOW DRAW Triage Protocol Emergency MD Start: 10-02-2020 Ecg routine ecg w/least 12 lds w/i&r Ramy Erwin MD Work Phone: Start: 09-26-2020 Ultrasonography External Transcribed Start: 09-26-2020 TTE w or wo fol wcon,Doppler Vern Blunt MD Work Phone: Plan of Treatment Date Care Activity Detail Author Start: 01-17-2023 Influenza vaccination Sequential Influenza Vaccine (#1) [facility] Start: 07-15-2022 End: 07-15-2022 Patient encounter procedure 07/15/2022 Office Visit Cardiology Vern Blunt MD [address] [place] [id number] [facility] Start: 01-17-2022 Influenza vaccination [facility] Start: 11-09-2021 End: 11-09-2021 Patient encounter procedure 11/09/2021 Office Visit Cardiology Vern Blunt MD [address] [place] [address] [facility] Start: 05-17-2021 End: 05-17-2021 Patient encounter procedure 05/17/2021 Office Visit Cardiology Vern Blunt MD [address] [place] [address] [facility] Start: 05-01-2021 End: 05-01-2021 Patient encounter procedure 05/01/2021 Appointment Cardiology Bernice Leo, DOCUMENT MANAGEMENT SPECIALIST [address] [place] [address] [facility] Start: 04-27-2021 End: 04-27-2021 Patient encounter procedure 04/27/2021 Office Visit Cardiology Bernice Leo, DOCUMENT MANAGEMENT SPECIALIST [address] [place] [address] [facility] Start: 03-13-2021 End: 03-13-2021 Patient encounter procedure [facility] Start: 01-17-2021 Influenza vaccination [facility] Start: 01-17-2021 End: 01-17-2021 Patient encounter procedure [facility] Start: 01-09-2021 End: 12-18-2021 Echocardiogram limited Echocardiogram limited Echocardiography Routine LV dysfunction Expected: 01/09/2021, Expires: 12/18/2021 [facility] Payers Date Payer Category Payer Medicare [id number] 2018 Medicare [id number] 2018 Medicare MEDICARE MEDICAR E PART A & B [id number] 2018-Present [phone] [facility] [id number] [address] [address] [place] [address] [id number] 1955 Unknown [id number] [id number] 1955 Unknown [id number] [id number] 1953 Unknown [id number] 2.90 1953 Unknown [id number] [id number] 1953 Unknown [id number] [id number] 1953 Unknown [id number] [id number] 1953 Unknown [id number] [id number] 1953 Unknown [id number] [id number] 1953 Unknown [id number] [id number] Private Health Insurance xxx [id number] Private Health Insurance I [id number] Private Health Insurance [employer] [id number] Effective for all dates [phone] [address] [address] [place] [address] [id number] Social History Date Type Detail Facility Start: 09-19-2020 Tobacco smoking status NHIS Unknown if ever smoked [facility] Start: 1955 Sex Assigned At Not on file [facility] Start: 10-29-2021 End: 07-15-2022 Exposure to SARS-CoV-2 (event) Not sure [facility] Start: 10-02-2020 End: 2021 Tobacco smoking status NHIS Never smoker [facility] Start: 10-02-2020 End: 2021 Tobacco use and exposure Never used [facility] Start: 05-17-2021 End: 07-15-2022 Alcohol intake Ex-drinker (finding) [facility] Start: 10-02-2020 End: 07-15-2022 Cigarette pack-years [facility] Start: 07-15-2022 Tobacco use panel [facility] Start: 10-18-2020 Gender identity Identifies as male gender (finding) [facility] Start: 10-18-2020 Sexual orientation Heterosexual (thomas margarita) [facility] Medical Equipment Procedure Code Equipment Code Equipment Origin al Text Equipment Identifier Dates Stent 3.00 X 32 [employer]nergy Mr - [id number] , [id number] [facility] Start: 10-06-2020 Clinical Notes 09-19-2020 to 03-31-2023 Telephone Encounter - Hillary Young MA - 03/31/2023 9:07 AM ESTTelephone Encounter - Hillary Young MA - 03/31/2023 9:07 AM ESTTelephone Encounter - Fazal Fernandez RN - 07/31/2022 10:56 AM EDT Note Date & Type Note Facility 03-31-2023 Telephone encounter Note Form atting of this note might be different from the original. Pt was last seen in 07/[address] Blunt refill appropriate [facility] 03-31-2023 Miscellaneous Notes Formattin g of this note might be different from the original. Pt was last seen in 07/[address] Blunt refill appropriate documented in this encounter [facility] 07-31-2022 Telephone encounter Note Form atting of this note might be different from the original. Refill needed to local pharmacy. Last OV with Dr. Blunt on 07/15/22. Dr. Blunt out of the office. [facility] 07-31-2022 Miscellaneous Notes Formattin g of this note might be different from the original. Refill needed to local pharmacy. Last OV with Dr. Blunt on 07/15/22. Dr. Blunt out of the office. documented in this encounter [facility] 07-15-2022 Instructions Fazal Fernandez RN - 07/15/2022 10:54 AM EST Fazal JAQUEZ, egg sorter for Vern Blunt MD [address] [place], [place] [address] General office (Scheduling) documented in this encounter [facility] 07-15-2022 History of Presen t illness Narrative CARDIOLOGY PROGRESS NOTE [facility] [address]) [facility] [address] [facility] [address] Physicians: Cristofer Zarate MD (Family); No ref. provider found (Referring) Subjective: Scott Arevalo is a 66 y.o. male seen in the office today for No chief complaint on file. . HPI: Patient presents in cardiovascular follow-up. He is accompanied by his on his office visit this morning. 66-year-old gentleman who had presented in September 2020 with clinical and radiographic evidence of congestive heart failure occurring in the setting of severe LV systolic and diastolic dysfunction. Patient had guideline initiation of an optimal congestive heart failure medical regiment. Patient underwent left heart catheterization at that time that demonstrated moderate disease in the mid left anterior descending with an abnormal IFR and he subsequently underwent catheter-based intervention with drug-eluting stent placement. Patient had moderate disease throughout the right coronary artery with nonobstructive disease in the posterior circulation. 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 Patient had declined consideration for ICD implantation in follow-up with EP services. Intensification of his oral congestive heart failure medical regiment (Entresto) has been limited due to symptomatic hypotension. Myocardial perfusion study October 2021 demonstrated small to moderate segment of inferolateral ischemia with inferior infarct. In the absence of provokable cardiovascular symptoms patient had opted for an ongoing course of guideline directed medical therapy. 2D echocardiogram April 2021 demonstrated an LV ejection fraction 30 to 35%, prominent trabeculations along the lateral wall and apex, and normal right ventricular size and systolic function. In the office patient states I feel fantastic . Patient describes himself as physically active. 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 He is not describing shortness of breath or chest discomfort with activities of daily living. No congestive manifestations. No syncope. Patient has been compliant with his medical regiment. Intensification of his oral congestive heart failure medical regiment limited due to symptomatic hypotension. Assessment/plan: Patient is well compensated at the present time and I have made no change in his current cardiovascular medical regiment. Chronic disease management is factor modification were reviewed. Assessment & Plan: No problem-specific Assessment & Plan notes found for this encounter. EKG Interpretation: normal sinus rhythm, occasional PVC noted, unifocal, poor R wave progression. Follow Up Ordered: Return in about 6 months (around 01/12/2023). Patient's Medications New Prescriptions No medications on file Previous Medications ALLOPURINOL (ZYLOPRIM) 100 MG TABLET Take 1 (one) tablet (100 mg total) by mouth daily . BISOPROLOL (ZEBETA) 5 MG TABLET TAKE 1 TABLET BY MOUTH EVERY DAY CLOPIDOGREL (PLAVIX) 75 MG TABLET Take 1 (one) tablet (75 mg total) by mouth daily . SELENIUM 200 MCG TAB Take 1 (one) tablet (200 mcg total) by mouth daily . VALSARTAN (DIOVAN) 40 MG TABLET Take 0.5 (one-half) tablet (20 mg total) by mouth nightly . WARFARIN (COUMADIN) 5 MG TABLET TAKE 1 & 1/2 TABLET BY MOUTH DAILY OR DIRECTED BY INR Modified Medications Modified Medication Previous Medication SPIRONOLACTONE (ALDACTONE) 25 MG TABLET spironolactone (ALDACTONE) 25 MG tablet Take 1 (one) tablet (25 mg total) by mouth daily . Take 1 (one) tablet (25 mg total) by mouth daily . Discontinued Medications No medications on file Histories: The past history, social and family history, and allergies were reviewed and updated as needed. ROS Objective: Physical Exam Constitutional: Appearance: Normal appearance. He is well-developed. HENT: Head: Normocephalic and atraumatic. Right Ear: External ear normal. Left Ear: External ear normal. Nose: Nose normal. Eyes: Pupils: Pupils are equal, round, and reactive to light. Neck: Thyroid: No thyroid mass. Vascular: No carotid bruit, hepatojugular reflux or JVD. Cardiovascular: Rate and Rhythm: Normal rate and regular rhythm. Pulses: Intact distal pulses. Heart sounds: Normal heart sounds. Comments: Quiet precordium. Physiologic S1 and S2. Soft systolic ejection murmur. Apical impulse diffuse and somewhat laterally displaced. Jugular venous pressures not appear elevated. Pulmonary: Effort: Pulmonary effort is normal. Breath sounds: Normal breath sounds. Comments: No rales or wheezes Abdominal: General: Bowel sounds are normal. Palpations: Abdomen is soft. Tenderness: There is no abdominal tenderness. Musculoskeletal: General: Normal range of motion. Cervical back: Normal range of motion and neck supple. No edema. No muscular tenderness. Comments: No edema Skin: General: Skin is warm and dry. Nails: There is no clubbing. Neurological: Mental Status: He is alert and oriented to person, place, and time. Cranial Nerves: No cranial nerve deficit. Deep Tendon Reflexes: Reflexes are normal and symmetric. Psychiatric: Speech: Speech normal. Behavior: Behavior normal. I personally reviewed and verified the review of systems obtained by the medical imaging tech. Vitals: Vitals: 07/15/22 1031 BP: 132/82 BP Location: Left arm Patient Position: Sitting BP Cuff Size: Adult Pulse: 78 SpO2: 95% Weight: 120.4 kg (265 lb 8 oz) 1. Coronary artery disease involving [place] coronary artery of [place] heart, unspecified whether angina present 2. Acute left-sided CHF (congestive heart failure) (HCC) 3. HFrEF (heart failure with reduced ejection fraction) (HCC) 4. Hyperlipidemia, unspecified hyperlipidemia type Vern Blunt MD documented in this encounter [facility] 03-25-2022 Telephone encounter Note Form atting of this note might be different from the original. Pt was last seen 11-09-[address] Blunt. Next appt is 07-15-[address] Blunt. Refills appropriate. [facility] 03-25-2022 Miscellaneous Notes Formattin g of this note might be different from the original. Pt was last seen 11-09-[address] Blunt. Next appt is 2-27-[address] Blunt. Refills appropriate. documented in this encounter [facility] 11-29-2021 Telephone encounter Note Form atting of this note might be different from the original. Refills needed to local pharmacy.Last OV with Dr. Blunt on 11/09/21. [facility] 11-29-2021 Miscellaneous Notes Formattin g of this note might be different from the original. Refills needed to local pharmacy.Last OV with Dr. Blunt on 11/09/21. documented in this encounter [facility] 11-09-2021 Instructions Dyan Carcamo RN - 11/09/2021 11:13 AM EDT ..How to contact your Care Team: Provider: Vern Blunt MD Nurse: Fazal Fernandez RN In case of an emergency please call 911. REFILLS: When in need for refills please call your care team or the office at [phone]. Please include medication name, pharmacy name, and specify 30-day or 90-day supply. Please check with your pharmacy within 24 hours of request for your refill. You must follow up as directed to continue current refills. Thank you documented in this encounter [facility] 11-09-2021 History of Presen t illness Narrative CARDIOLOGY PROGRESS NOTE [facility] [address] [facility] [address] [facility] [id number] Physicians: Cristofer Zarate MD (Family); No ref. provider found (Referring) Subjective: Scott Arevalo is a 66 y.o. male seen in the office today for No chief complaint on file. . HPI: Patient presents in cardiovascular follow-up. He is accompanied with his on his office visit this morning. Very pleasant 66-year-old gentleman who had presented in September 2020 with clinical and radiographic evidence of congestive heart failure occurring in the setting of severe LV systolic and diastolic dysfunction. Patient had guideline initiation of an optimal congestive heart failure medical regiment. Patient underwent left heart catheterization at that time that demonstrated moderate disease in the mid left anterior descending with an abnormal IFR and he subsequently underwent catheter-based intervention with drug-eluting stent placement. Patient had moderate disease throughout the right coronary artery with nonobstructive disease in the posterior circulation. 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 Patient had declined consideration for ICD implantation in follow-up with EP services. Intensification of his oral congestive heart failure medical regiment (Entresto) has been limited due to symptomatic hypotension. In the office this morning patient states he feels well. He again describes himself as I feel fantastic . 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 He also walks with his at the local gym for 15 to 30 minutes at a time on a treadmill. He is not describing shortness of breath or chest discomfort with activities of daily living. No congestive manifestations. No syncope. Compliant with his medical regiment. Patient follows in our ambulatory heart failure clinic. 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 Patient achieved a workload of 10 METS with an intermediate risk Mata treadmill score. Patient had a small to moderate segment of inferolateral wall ischemia. LV ejection fraction was 37%. Assessment/plan: I had a lengthy discussion with the patient regarding his abnormal myocardial perfusion study. I reviewed diagnostic options with the patient that included ongoing guideline directed optimal medical therapy given absence of provokable cardiovascular symptoms versus proceeding with invasive cardiovascular testing to exclude the progression of his epicardial coronary disease. After reviewing the risk and benefits of both approaches patient clearly opts for ongoing medical therapy. Chronic disease management and risk factor modification were reviewed. Assessment & Plan: No problem-specific Assessment & Plan notes found for this encounter. EKG Interpretation: Follow Up Ordered: Return in about 6 months (around 05/11/2022). Patient's Medications New Prescriptions No medications on file Previous Medications BISOPROLOL (ZEBETA) 5 MG TABLET Take 1 (one) tablet (5 mg total) by mouth daily . CLOPIDOGREL (PLAVIX) 75 MG TABLET Take 1 (one) tablet (75 mg total) by mouth daily . SELENIUM 200 MCG TAB Take 200 mcg by mouth daily . SPIRONOLACTONE (ALDACTONE) 25 MG TABLET Take 1 (one) tablet (25 mg total) by mouth daily . VALSARTAN (DIOVAN) 40 MG TABLET Take 0.5 (one-half) tablet (20 mg total) by mouth daily with lunch . WARFARIN (COUMADIN) 5 MG TABLET TAKE 1 & 1/2 TABLET BY MOUTH DAILY OR DIRECTED BY INR Modified Medications No medications on file Discontinued Medications WARFARIN (COUMADIN) 2.5 MG TABLET Take one tablet by mouth daily or as directed by Coumadin clinic . Histories: The past history, social and family history, and allergies were reviewed and updated as needed. ROS Objective: Physical Exam Constitutional: Appearance: Normal appearance. He is well-developed. HENT: Head: Normocephalic and atraumatic. Right Ear: External ear normal. Left Ear: External ear normal. Nose: Nose normal. Eyes: Pupils: Pupils are equal, round, and reactive to light. Neck: Thyroid: No thyroid mass. Vascular: No carotid bruit, hepatojugular reflux or JVD. Cardiovascular: Rate and Rhythm: Normal rate and regular rhythm. Pulses: Intact distal pulses. Heart sounds: Normal heart sounds. Comments: Quiet precordium. Physiologic S1 and S2. Soft systolic ejection murmur. Apical impulse diffuse and somewhat laterally displaced. Jugular venous pressures not appear elevated. Pulmonary: Effort: Pulmonary effort is normal. Breath sounds: Normal breath sounds. Comments: No rales or wheezes Abdominal: General: Bowel sounds are normal. Palpations: Abdomen is soft. Tenderness: There is no abdominal tenderness. Musculoskeletal: General: Normal range of motion. Cervical back: Normal range of motion and neck supple. No edema. No muscular tenderness. Comments: No edema Skin: General: Skin is warm and dry. Nails: There is no clubbing. Neurological: Mental Status: He is alert and oriented to person, place, and time. Cranial Nerves: No cranial nerve deficit. Deep Tendon Reflexes: Reflexes are normal and symmetric. Psychiatric: Speech: Speech normal. Behavior: Behavior normal. I personally reviewed and verified the review of systems obtained by the medical imaging tech. Vitals: Vitals: 11/09/21 1036 BP: 129/79 BP Location: Left arm Patient Position: Sitting BP Cuff Size: X-large Adult Pulse: 61 SpO2: 97% Weight: 114.3 kg (252 lb) Height: 5' 10 1. Coronary artery disease involving [place] coronary artery of [place] heart, unspecified whether angina present Vern Blunt MD documented in this encounter [facility] 10-25-2021 Note Addended by: FAZAL FERNANDEZ on: 10/25/2021 02:32 PM Modules accepted: Orders [facility] 10-25-2021 Miscellaneous Notes Addended by: FAZAL FERNANDEZ on: 10/25/2021 02:32 PM Modules accepted: Orders documented in this encounter [facility] 10-08-2021 Telephone encounter Note Form atting of this note might be different from the original. Refills needed to local pharmacy. Last OV with Dr. Blunt on 05/17/21 and next OV 11/09/21. [facility] 10-08-2021 Miscellaneous Notes Formattin g of this note might be different from the original. Refills needed to local pharmacy. Last OV with Dr. Blunt on 05/17/21 and next OV 11/09/21. documented in this encounter [facility] 05-22-2021 Miscellaneous Notes Last ov 05/17/21 w/ Dr. Blunt Upcoming ov 11/09/21 documented in this encounter [facility] 05-17-2021 History of Presen t illness Narrative CARDIOLOGY PROGRESS NOTE [facility] [address]) [facility] [address] [facility] [id number] Physicians: Cristofer Zarate MD (Family); No ref. provider found (Referring) Subjective: Scott Arevalo is a 65 y.o. male seen in the office today for No chief complaint on file. . HPI: Patient presents in cardiovascular follow-up. He is accompanied by his on his office visit this morning. 65-year-old gentleman who had presented in September 2020 with clinical and radiographic evidence of congestive heart failure. Noninvasive imaging revealed severe LV systolic dysfunction with an estimated LV ejection fraction of 15%, moderate to moderately severe mitral valve insufficiency (functional) with dilated RV with severe dysfunction. Doppler indices were consistent with severe resting pulmonary hypertension and restrictive LV filling. Patient received IV diuretics and initiation of guideline directed optimal medical therapy with regards to his congestive heart failure medical regimen. Patient subsequently underwent IFR guided drug-eluting stent placement to the left anterior descending that yielded a nice angiographic result. 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 Patient was placed on oral anticoagulation with Coumadin. Patient has followed up with EP services and has declined consideration for ICD implantation. Patient is not on Entresto due to symptomatic hypotension. Limited 2D echocardiogram April 2021 demonstrated LV ejection fraction 30 to 35%. 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 Patient had normal right ventricular size and systolic function. In the office today patient states he feels well from a cardiovascular viewpoint. In fact he describes himself as I feel fantastic . He is not describing shortness of breath or chest discomfort in the course of daily activities. He describes himself as active. His weight has remained stable. No PND or orthopnea. No syncope. Summary: Patient appears well compensated at the present time from a cardiovascular viewpoint currently [place] heart association functional class I-II. I have made no change in his current CHF medical regiment. I did review with the patient our recommendation for ICD implantation and continuation of oral anticoagulation with Coumadin. I reviewed the risk and benefits of these approaches with the patient and his in great detail. All questions were answered. Chronic disease management and risk factor modification was reviewed. Assessment & Plan: No problem-specific Assessment & Plan notes found for this encounter. EKG Interpretation: Follow Up Ordered: No follow-ups on file. Patient's Medications New Prescriptions No medications on file Previous Medications BISOPROLOL (ZEBETA) 5 MG TABLET Take 1 (one) tablet (5 mg total) by mouth daily Start: 10/10/20. CLOPIDOGREL (PLAVIX) 75 MG TABLET Take 1 (one) tablet (75 mg total) by mouth daily Start: 10/10/20. SELENIUM 200 MCG TAB Take 200 mcg by mouth 2 (two) times a day . SPIRONOLACTONE (ALDACTONE) 25 MG TABLET Take 1 (one) tablet (25 mg total) by mouth daily . VALSARTAN (DIOVAN) 40 MG TABLET Take 0.5 (one-half) tablet (20 mg total) by mouth daily with lunch . WARFARIN (COUMADIN) 2.5 MG TABLET Take one tablet by mouth daily or as directed by Coumadin clinic . Modified Medications No medications on file Discontinued Medications No medications on file Histories: The past history, social and family history, and allergies were reviewed and updated as needed. ROS Objective: Physical Exam Constitutional: Appearance: Normal appearance. He is well-developed. HENT: Head: Normocephalic and atraumatic. Right Ear: External ear normal. Left Ear: External ear normal. Nose: Nose normal. Eyes: Pupils: Pupils are equal, round, and reactive to light. Neck: Thyroid: No thyroid mass. Vascular: No carotid bruit, hepatojugular reflux or JVD. Cardiovascular: Rate and Rhythm: Normal rate and regular rhythm. Pulses: Intact distal pulses. Heart sounds: Normal heart sounds. Comments: Quiet precordium. Physiologic S1 and S2. Soft systolic ejection murmur. Apical impulse diffuse and somewhat laterally displaced. Jugular venous pressures not appear elevated. Pulmonary: Effort: Pulmonary effort is normal. Breath sounds: Normal breath sounds. Comments: No rales or wheezes Abdominal: General: Bowel sounds are normal. Palpations: Abdomen is soft. Tenderness: There is no abdominal tenderness. Musculoskeletal: General: Normal range of motion. Cervical back: Normal range of motion and neck supple. No edema. No muscular tenderness. Comments: No edema Skin: General: Skin is warm and dry. Nails: There is no clubbing. Neurological: Mental Status: He is alert and oriented to person, place, and time. Cranial Nerves: No cranial nerve deficit. Deep Tendon Reflexes: Reflexes are normal and symmetric. Psychiatric: Speech: Speech normal. Behavior: Behavior normal. I personally reviewed and verified the review of systems obtained by the medical imaging tech. Vitals: Vitals: 05/17/21 0837 BP: 116/71 BP Location: Right arm Patient Position: Sitting BP Cuff Size: Adult Pulse: 64 SpO2: 94% Weight: 108.9 kg (240 lb) 1. Hypotension, unspecified hypotension type 2. Coronary artery disease involving [place] coronary artery of [place] heart, unspecified whether angina present 3. Hyperlipidemia, unspecified hyperlipidemia type Vern Blunt MD documented in this encounter [facility] 05-17-2021 Instructions Lorene Call RN - 05/17/2021 8:36 AM EST Provider: Dr. 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 Patient garage manager stated for patient not to come off Coumadin and to make an appointment to be seen for patient education on his Coumadin medication. Algology Teacher message was forwarded to scheduling to get him scheduled to speak with their garage manager. documented in this encounter [facility] 04-06-2021 History of Presen t illness Narrative Rebel's calls to request order for ECHO. 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 Repeat ECHO ordered. documented in this encounter [facility] 03-13-2021 History of Presen t illness Narrative 03/13/21 Scott Vargas Samuelmiles 1955 [facility] Scott Arevalo is a 65 y.o. male seen today in the Heart Failure Clinic for follow up. Rbeel is ambulatory to the clinic today in no observed distress. He is accompanied by his today. Rebel is taking part in cardiac rehab at [facility]. He is taking his diuretic prn and has a good understanding of when to take this. He reports that usually when he does need it, it is related to sodium indiscretion. 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 Rebel brings with him weight and BP logs from home. He has gained some real weight over the last few months, he attributes this to gaining muscle at cardiac rehab. Congestive Heart Failure Intake General Data In CHF program?: Yes Heart Failure etiology: Non-ischemic Heart Failure type: Systolic Received HF educational booklet: Pos 6 minute walk in past year: Neg NYHA functional class: II Last Ejection Fraction: 15 Date: 09/26/20 Modality: Echocardiogram Systolic HF medication titration data On BetaBlocker?: Yes Dosing: Still being titrated On TRELL/ARB/ARNI: ARB Dosing: Still being titrated On Aldosterone Antagonist?: Yes On Ivabradine?: No On Digoxin?: No On Hydralazine?: No On Nitrate?: No Last Lab: Lab Results Component Value Date CREATININE 1.25 10/09/2020 BUN 36 (H) 10/09/2020 NA 136 10/09/2020 K 3.9 10/09/2020 CL 104 10/09/2020 BICARB 24 10/09/2020 Lab Results Component Value Date WBC 7.09 10/09/2020 HGB 13.5 10/09/2020 HCT 43.1 10/09/2020 MCV 77.9 (L) 10/09/2020 PLT 296 10/09/2020 Lab Results Component Value Date ALT 21 10/08/2020 AST 25 10/08/2020 ALKPHOS 184 (H) 10/08/2020 BILITOT 1.5 (H) 10/08/2020 Lab Results Component Value Date TSH 1.31 10/03/2020 Subjective/Objective Vitals: 03/13/21 1123 BP: 118/68 Pulse: 63 SpO2: 97% Weight: 103.2 kg (227 lb 9.6 oz) Prior to Admission medications Medication Sig Start Date End Date Taking? Authorizing Provider bisoprolol (ZEBETA) 5 MG tablet Take 1 (one) tablet (5 mg total) by mouth daily Start: 10/10/20. 10/10/20 03/13/21 Yes Nissa Underwood CNP clopidogreL (PLAVIX) 75 mg tablet Take 1 (one) tablet (75 mg total) by mouth daily Start: 10/10/20. 10/10/20 03/13/21 Yes Nissa Underwood CNP spironolactone (ALDACTONE) 25 MG tablet Take 1 (one) tablet (25 mg total) by mouth daily . 10/09/20 03/13/21 Yes Nissa Underwood CNP valsartan (DIOVAN) 40 MG tablet Take 0.5 (one-half) tablet (20 mg total) by mouth daily with lunch . 10/18/20 03/13/21 Yes Ignacio Olivo CNP warfarin (COUMADIN) 2.5 MG tablet Take one tablet by mouth daily or as directed by Coumadin clinic . 10/09/20 10/09/21 Yes Nissa Underwood CNP furosemide (LASIX) 20 MG tablet Take 1 (one) tablet (20 mg total) by mouth daily . 11/13/20 03/13/21 Yes ADITHYA Edmond selenium 200 mcg Tab Take 200 mcg by mouth 2 (two) times a day . Historical Provider, allopurinoL (ZYLOPRIM) 100 MG tablet Take 100 mg by mouth daily . 03/13/21 Historical Provider, coenzyme Q10 10 mg capsule Take 10 mg by mouth daily . 03/13/21 Historical Provider, Saccharomyces boulardii (Probiotic, S.boulardii,) 250 mg capsule Take 250 mg by mouth daily . 03/13/21 Historical Provider, Wt Readings from Last 3 Encounters: 03/13/21 103.2 kg (227 lb 9.6 oz) 01/17/21 100.7 kg (222 lb) 12/12/20 98 kg (216 lb) General: Clean, well dressed Psych: Normal mood and affect, talkative Skin: PWD, denies open areas or rashes Breath Sounds: CTA A/P SOB: Denies, except for while on exercise bike PND: Denies Pt can sleep flat: states yes Heart Sounds: Regular Edema: None appreciated, abdomen soft Dizzy or lightheadedness: denies GI/: No problems identified Activity: participating in cardiac rehab currently Appetite: no problems identified Education: Diet: 2000mg (2 gm) Sodium diet. Do not add salt to food or cook with salt. Check labels for Sodium (Na). 2 liter (64ounces) fluid restriction Weigh yourself each day: Record your weight in your weight log. Call Heart Failure clinic ([phone]) for Difficulty breathing, especially at rest or when lying flat in bed Frequent dry, hacking cough, especially when lying down Waking up breathless at night Swollen feet, ankles, legs, or abdomen Increased tiredness or fatigue If you become dizzy or Lightheaded. Assessment & Plan this visit: Per ADITHYA Bell: Please try to increase your valsartan to 40 mg oral daily Asuncion Valdivia RN, CCRN, CHFN documented in this encounter [facility] 03-13-2021 Instructions Asuncion Valdivia RN - 03/13/2021 12:07 PM EDT Please try to increase your valsartan to 40 mg oral daily documented in this encounter [facility] 12-12-2020 Instructions Bernice Leo CNS - 12/12/2020 11:38 AM EDT Please get back on atorvastatin. documented in this encounter [facility] 12-12-2020 History of Presen t illness Narrative [facility] NAME: Scott Arevalo DATE OF : 1955 MEDICAL RECORD#: [id number] SECURITY INCIDENT RESPONSE ENGINEER: Vern Blunt MD TODAY'S DATE: 12/12/2020 Subjective Scott Arevalo is a 65 y.o. male with a h/o HFrEF, noncompaction cardiomyopathy, CAD, who presents today for his follow up visit to the heart failure clinic. The patient is accompanied today by his . Mr. Arevalo presents after a recent hospitalization for acute heart failure(10/02/2020-10/09/2020) He presented to the ED on 10/02/2020 w/ a c/o SOB and lower extremities. His history dates back to April 2020 when he was in [place] and acquired a parasite and bacterial infection which was treated with antibiotics.. After that he was noted to have a low ejection fraction and was treated with diuretics (lasix). When there was no improvement in in his EF he was set up to see Dr. Blunt and was awaiting his outpatient appointment. In the interim he has developed volume overload and he and believe he has gained approximately 8 pounds. During his hospitalization he had a PCI to his LAD and was found to have LV noncompaction and MRGirish He was started on coumadin and sent home with a Lifevest. We discussed symptoms to monitor and report. He has been monitoring his weight and BPs at home. Weight has been stable, BPs 90-110 systolic. His lungs are clear, pitting 3+ bilateral pedal edema. He stated that he had pedal edema since his parasite infection. No open wounds or redness. We discussed guideline directed medical therapy for HFrEF. He is on an adequate beta blockade, ARB and an aldosterone receptor antagonist. We discussed the importance of increasing these to their highest tolerated doses to achieve maximal benefit. We discussed Entresto and how it could benefit him. He has been hypotensive and decreased valsartan to 20 mg a day. He continues to have significant pedal edema. He will increase lasix to 20 mg BID. This was decreased after weight loss. Today, his weight is down 30 lbs since his first visit. He reports improved exercise tolerance and feeling well. He no longer has pedal edema or congestive symptoms. BPs at home 88/49-111/64. No changes to medications due to soft BPs. He is to repeat echo in December. We discussed the importance of using statins to stabilize CAD. He agreed to resume lipitor. Mr. Arevalo lives with his . 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 He stated that he has been able to climb onto the bulldozer, which he had not been able to do prior to his hospitalization. We discussed a low sodium meal plan. He and his have made good changes to his diet, limiting sodium. He does not drink excessive fluids. We discussed a low level activity plan. We discussed cardiac rehab. He was interested and signed up. He has not been walking as he was afraid to do too much. He was encouraged to walk 2 minutes 4 times a day. Congestive Heart Failure Intake General Data In CHF program?: Yes Heart Failure etiology: Non-ischemic Heart Failure type: Systolic Received HF educational booklet: Pos 6 minute walk in past year: Neg NYHA functional class: II Last Ejection Fraction: 15 Date: 09/26/20 Modality: Echocardiogram Systolic HF medication titration data On BetaBlocker?: Yes Dosing: Still being titrated On TRELL/ARB/ARNI: ARB Dosing: Still being titrated On Aldosterone Antagonist?: Yes On Ivabradine?: No On Digoxin?: No On Hydralazine?: No On Nitrate?: No CARDIAC HISTORY INCLUDES: 10/09/2020 Cardiac MRI 1. Severe LV enlargement with global dysfunction with segmental features. Prominent LV trabeculations in the mid and apical lateral wall and LV apex. Non compacted to compacted ratio of 2.8:1 c/w LV non compaction. No myocardial thrombus noted with long TI imaging. 2. No myocardial inflammation with T2 mapping. There is mid myocardial scar in the septum c/w non ischemic cardiomyopathy. There is also subendocardial scar in the basal and mid inferolateral scar seen with prior infarction. 3. RV is severely enlarged with severe RV dysfunction. Prominent RV trabeculations. 4. Moderate MR with RF of 30%, secondary to LV enlargement. 10/06/2020 Cath and PCI Two vessel severe calcific obstructive CAD. Successful percutaneous coronary intervention of mid LAD with ABEBE x 1 iFR of LAD 0.86 Elevated left Heart Filling pressures Elevated Right Heart Filling Pressures Severe pulmonary hypertension Normal Cardiac output and cardiac index Successful TR Band deployment to right RA. Recommendations: Aggressive risk factor modification Continued medical therapy and follow-up with primary garage manager Aspirin 81 mg daily indefinitely and clopidogrel 75 mg daily for ideally 6-12 months, or longer at the discretion of the primary garage manager GDMT for congestive heart failure and functional MR 09/26/2020 Echo Summary 1. Left ventricular chamber dimension is severely enlarged. 2. Global hypokinesis of the left ventricle. 3. Left ventricular systolic function is severely reduced with an ejection fraction by Biplane Method of Discs of 15 %. 4. The left ventricular diastolic function is grade III diastolic dysfunction, consistent with markedly elevated left atrial pressure (restrictive LV filling). 5. Right ventricular chamber dimension is severely enlarged. 6. Right ventricular systolic function is severly reduced. 7. There is pulmonary hypertension, estimated right ventricle systolic pressure is 59 mmHg. 8. There is 3+ centrally directed mitral valve regurgitation Histories: Past Medical History: Diagnosis Date Cardiomyopathy (HCC) dilated CHF (congestive heart failure) (HCC) Gout Past Surgical History: Procedure Laterality Date CARDIAC CATHETERIZATION N/A 10/06/2020 Procedure: Left and Right Heart Cath; Surgeon: Dorian Barney MD; Location: [facility]; Service: Cardiovascular CARDIAC CATHETERIZATION CORONARY STENT PLACEMENT Current Medications: Current Outpatient Medications Medication Sig Dispense Refill bisoprolol (ZEBETA) 5 MG tablet Take 1 (one) tablet (5 mg total) by mouth daily Start: 10/10/20. 30 tablet 11 clopidogreL (PLAVIX) 75 mg tablet Take 1 (one) tablet (75 mg total) by mouth daily Start: 10/10/20. 30 tablet 11 coenzyme Q10 10 mg capsule Take 10 mg by mouth daily . furosemide (LASIX) 20 MG tablet Take 1 (one) tablet (20 mg total) by mouth daily . 60 tablet 11 Saccharomyces boulardii (Probiotic, S.boulardii,) 250 mg capsule Take 250 mg by mouth daily . selenium 200 mcg Tab Take 200 mcg by mouth 2 (two) times a day . spironolactone (ALDACTONE) 25 MG tablet Take 1 (one) tablet (25 mg total) by mouth daily . 30 tablet 11 valsartan (DIOVAN) 40 MG tablet Take 0.5 (one-half) tablet (20 mg total) by mouth daily with lunch . 30 tablet 11 warfarin (COUMADIN) 2.5 MG tablet Take one tablet by mouth daily or as directed by Coumadin clinic . 30 tablet 11 atorvastatin (LIPITOR) 40 MG tablet Take 40 mg by mouth daily . No current facility-administered medications for this visit. Allergies Allergen Reactions Metoprolol GI Intolerance Bee Venom Protein (Honey Bee) Hives, edema Carvedilol hives Celexa [Citalopram] ED Hydroxyzine Increased anxiety Lisinopril cough Morphine vomiting Review of Systems Constitutional: Positive for malaise/fatigue. Negative for weight gain. HENT: Negative for congestion. Cardiovascular: Positive for dyspnea on exertion and leg swelling. Negative for chest pain, orthopnea and paroxysmal nocturnal dyspnea. Respiratory: Negative. Skin: Negative. Musculoskeletal: Negative. Gastrointestinal: Negative for bloating, constipation and diarrhea. Genitourinary: Positive for nocturia. Negative for dysuria. Neurological: Negative for dizziness, headaches and light-headedness. Psychiatric/Behavioral: Negative for depression. The patient does not have insomnia. Objective: Physical Exam Constitutional: Appearance: Normal appearance. He is obese. HENT: Head: Normocephalic and atraumatic. Eyes: Conjunctiva/sclera: Conjunctivae normal. Cardiovascular: Rate and Rhythm: Normal rate and regular rhythm. Pulses: Normal pulses. Heart sounds: Normal heart sounds. Pulmonary: Effort: Pulmonary effort is normal. Breath sounds: Normal breath sounds. Abdominal: General: Bowel sounds are normal. Palpations: Abdomen is soft. Musculoskeletal: Cervical back: Normal range of motion. Right lower leg: Edema present. Left lower leg: Edema present. Skin: General: Skin is warm and dry. Neurological: Mental Status: He is alert and oriented to person, place, and time. Psychiatric: Mood and Affect: Mood normal. Behavior: Behavior normal. Thought Content: Thought content normal. Judgment: Judgment normal. Vitals: Vitals: 12/12/20 1125 12/12/20 1144 BP: 121/69 108/64 BP Location: Left arm Patient Position: Sitting BP Cuff Size: X-large Adult Pulse: 60 SpO2: 96% Weight: 98 kg (216 lb) Height: 5' 10 Lab Review: Recent labs reviewed with patient Assessment & Plan: Plan IMPRESSION: HFrEF Etiology: ischemic? Most recent known EF: 15 Stage: C NYHA Class: III His weight has been stable, bilateral pitting pedal edema Essential hypertension: Currently under good control CAD - 10/06/2020 cath and PCI Two vessel severe calcific obstructive CAD. Successful percutaneous coronary intervention of mid LAD with ABEBE x 1 iFR of LAD 0.86 Elevated left Heart Filling pressures Elevated Right Heart Filling Pressures Severe pulmonary hypertension. 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 Diet counseling: Patient was counseled on low sodium heart healthy diet. FOLLOW-UP SCHEDULE: Patient is currently scheduled to follow-up with Dr. Blunt INR is followed by: [place] Patient will return to see us in February 30 minutes was spent w/ the patient. Over half of this time was spent in counseling regarding medication therapy, treatments, activity, diet planning including teaching and review of reports with patient. There is collaboration between the DOCUMENT MANAGEMENT SPECIALIST and the consulting/collaborating physician regarding this patient's plan of care. Dr. Vern Blunt MD has been updated regarding the patient's status via EMR. Thank you for allowing us to participate in the care of our patient. Please call if you have any further questions. Signature: ADITHYA Bell documented in this encounter [facility] 12-03-2020 History of Presen t illness Narrative CARDIOLOGY PROGRESS NOTE [facility] [address] [facility] [address] [facility] [id number] Physicians: Cristofer Zarate MD (Family); No ref. provider found (Referring) Subjective: Scott Arevalo is a 65 y.o. male seen in the office today for Follow-up (wishes to discuss coumadin therapy) . HPI: Patient presented in cardiovascular follow-up. He was accompanied by his on his office visit. In the office he states he feels well from a cardiovascular viewpoint. Patient is not describing shortness of breath or chest discomfort in the course of daily activities. He has been compliant with his medical regiment. He has lost close to 60 pounds. No PND or orthopnea. Compliant with his medical regiment. Assessment & Plan: CAD (coronary artery disease) Patient had initially presented with clinical and radiographic evidence of congestive heart failure. 2D echocardiogram September 2020 demonstrated LV ejection fraction of 15%, moderate to moderately severe mitral valve insufficiency (functional), dilated RV with severe RV dysfunction, and Doppler indices consistent with severe pulmonary hypertension and restrictive LV filling. Patient subsequently underwent left heart catheterization that demonstrated heavily calcified right coronary artery with high-grade disease in a small caliber posterior descending branch and moderately severe disease in the mid left anterior descending. Patient underwent IFR determination across the left anterior descending that was found to be physiologic significant (0.86) and patient underwent catheter-based intervention with drug-eluting stent placement placing a 3.0 x 32 mm Synergy stent. Subsequent CV MRI demonstrated severe biventricular dysfunction with morphologic features compatible with LV and RV noncompaction. LV ejection fraction 14% with LV cavity severe enlargement with global dysfunction. Patient was subsequently placed on oral anticoagulation with Coumadin. In the office patient feels well on a background of optimal medical therapy. Patient is not complaining of shortness of breath or chest discomfort in the course of daily activities. Current exam does not suggest evidence for cardiac decompensation. Patient follows in the ambulatory heart failure clinic. We have made no change in his current medical regiment. Will need follow-up 2D echocardiogram and consideration for possible ICD placement. Hyperlipidemia Patient should be on high intensity plaque stabilization therapy if no contraindications. EKG Interpretation: Follow Up Ordered: Return in about 6 months (around 06/02/2021). Patient's Medications New Prescriptions No medications on file Previous Medications BISOPROLOL (ZEBETA) 5 MG TABLET Take 1 (one) tablet (5 mg total) by mouth daily Start: 10/10/20. CLOPIDOGREL (PLAVIX) 75 MG TABLET Take 1 (one) tablet (75 mg total) by mouth daily Start: 10/10/20. COENZYME Q10 10 MG CAPSULE Take 10 mg by mouth daily . FUROSEMIDE (LASIX) 20 MG TABLET Take 1 (one) tablet (20 mg total) by mouth daily . SACCHAROMYCES BOULARDII (PROBIOTIC, S.BOULARDII,) 250 MG CAPSULE Take 250 mg by mouth daily . SELENIUM 200 MCG TAB Take 200 mcg by mouth 2 (two) times a day . SPIRONOLACTONE (ALDACTONE) 25 MG TABLET Take 1 (one) tablet (25 mg total) by mouth daily . VALSARTAN (DIOVAN) 40 MG TABLET Take 0.5 (one-half) tablet (20 mg total) by mouth daily with lunch . WARFARIN (COUMADIN) 2.5 MG TABLET Take one tablet by mouth daily or as directed by Coumadin clinic . Modified Medications No medications on file Discontinued Medications No medications on file Histories: The past history, social and family history, and allergies were reviewed and updated as needed. ROS Objective: Physical Exam Constitutional: Appearance: Normal appearance. He is well-developed. HENT: Head: Normocephalic and atraumatic. Right Ear: External ear normal. Left Ear: External ear normal. Nose: Nose normal. Eyes: Pupils: Pupils are equal, round, and reactive to light. Neck: Thyroid: No thyroid mass. Vascular: No carotid bruit, hepatojugular reflux or JVD. Cardiovascular: Rate and Rhythm: Normal rate and regular rhythm. Pulses: Intact distal pulses. Heart sounds: Normal heart sounds. Comments: Quiet precordium. Physiologic S1 and S2. Soft systolic ejection murmur. Apical impulse diffuse and somewhat laterally displaced. Jugular venous pressures not appear elevated. Pulmonary: Effort: Pulmonary effort is normal. Breath sounds: Normal breath sounds. Comments: No rales or wheezes Abdominal: General: Bowel sounds are normal. Palpations: Abdomen is soft. Tenderness: There is no abdominal tenderness. Musculoskeletal: General: Normal range of motion. Cervical back: Normal range of motion and neck supple. No edema. No muscular tenderness. Comments: Venous stasis changes bilaterally. Trace ankle edema Skin: General: Skin is warm and dry. Nails: There is no clubbing. Neurological: Mental Status: He is alert and oriented to person, place, and time. Cranial Nerves: No cranial nerve deficit. Deep Tendon Reflexes: Reflexes are normal and symmetric. Psychiatric: Speech: Speech normal. Behavior: Behavior normal. I personally reviewed and verified the review of systems obtained by the medical imaging tech. Vitals: Vitals: 11/30/20 0954 BP: 104/62 BP Location: Right arm Patient Position: Sitting BP Cuff Size: X-large Adult Pulse: 72 Resp: 14 SpO2: 97% Weight: 97.5 kg (215 lb) Height: 5' 11.5 1. Coronary artery disease involving [place] coronary artery of [place] heart, unspecified whether angina present 2. Hyperlipidemia, unspecified hyperlipidemia type Vern Blunt MD documented in this encounter [facility] 12-03-2020 Miscellaneous Notes Associated Problem(s): Hyperlipidemia Patient should be on high intensity plaque stabilization therapy if no contraindications. Associated Problem(s): CAD (coronary artery disease) Patient had initially presented with clinical and radiographic evidence of congestive heart failure. 2D echocardiogram September 2020 demonstrated LV ejection fraction of 15%, moderate to moderately severe mitral valve insufficiency (functional), dilated RV with severe RV dysfunction, and Doppler indices consistent with severe pulmonary hypertension and restrictive LV filling. Patient subsequently underwent left heart catheterization that demonstrated heavily calcified right coronary artery with high-grade disease in a small caliber posterior descending branch and moderately severe disease in the mid left anterior descending. Patient underwent IFR determination across the left anterior descending that was found to be physiologic significant (0.86) and patient underwent catheter-based intervention with drug-eluting stent placement placing a 3.0 x 32 mm Synergy stent. Subsequent CV MRI demonstrated severe biventricular dysfunction with morphologic features compatible with LV and RV noncompaction. LV ejection fraction 14% with LV cavity severe enlargement with global dysfunction. Patient was subsequently placed on oral anticoagulation with Coumadin. In the office patient feels well on a background of optimal medical therapy. Patient is not complaining of shortness of breath or chest discomfort in the course of daily activities. Current exam does not suggest evidence for cardiac decompensation. Patient follows in the ambulatory heart failure clinic. We have made no change in his current medical regiment. Will need follow-up 2D echocardiogram and consideration for possible ICD placement. documented in this encounter [facility] 11-30-2020 Instructions Joanne Amin RN - 11/30/2020 9:49 AM EDT .How to contact your Care Team: Provider: Vern Blunt MD Nurse: Fazal Fernandez RN documented in this encounter [facility] 11-13-2020 History of Presen t illness Narrative 11/13/20 Scott Arevalo 1955 [facility] Scott Arevalo is a 65 y.o. male seen today in the Heart Failure Clinic for follow up. He is ambulatory to the clinic with no observed dyspnea on arrival. He is accompanied by his today. They bring BP and weight logs with them from home. They have sent back the LifeVest because his heart is better already . They were educated to the purpose behind the device. Rebel also opted not to take Lipitor, given his normal cholesterol count on labs. I educated him to the added benefits to those with CAD. I have also asked Melissa to explain this to them as well. Congestive Heart Failure Intake General Data In CHF program?: Yes Heart Failure etiology: Non-ischemic Heart Failure type: Systolic Device: WCD Received HF educational booklet: Pos 6 minute walk in past year: Neg Last Ejection Fraction: 15 Date: 09/26/20 Modality: Echocardiogram Systolic HF medication titration data On BetaBlocker?: Yes Dosing: Still being titrated On TRELL/ARB/ARNI: ARB Dosing: Still being titrated On Aldosterone Antagonist?: Yes On Ivabradine?: No On Digoxin?: No On Hydralazine?: No On Nitrate?: No Last Lab: Lab Results Component Value Date CREATININE 1.25 10/09/2020 BUN 36 (H) 10/09/2020 NA 136 10/09/2020 K 3.9 10/09/2020 CL 104 10/09/2020 BICARB 24 10/09/2020 Lab Results Component Value Date WBC 7.09 10/09/2020 HGB 13.5 10/09/2020 HCT 43.1 10/09/2020 MCV 77.9 (L) 10/09/2020 PLT 296 10/09/2020 Lab Results Component Value Date ALT 21 10/08/2020 AST 25 10/08/2020 ALKPHOS 184 (H) 10/08/2020 BILITOT 1.5 (H) 10/08/2020 Lab Results Component Value Date TSH 1.31 10/03/2020 Subjective/Objective Vitals: 11/13/20 1428 BP: 109/70 Pulse: (!) 56 SpO2: 97% Weight: 97.5 kg (215 lb) Height: 5' 11.5 Prior to Admission medications Medication Sig Start Date End Date Taking? Authorizing Provider bisoprolol (ZEBETA) 5 MG tablet Take 1 (one) tablet (5 mg total) by mouth daily Start: 10/10/20. 10/10/20 11/13/20 Yes Nissa Underwood CNP clopidogreL (PLAVIX) 75 mg tablet Take 1 (one) tablet (75 mg total) by mouth daily Start: 10/10/20. 10/10/20 11/13/20 Yes Nissa Underwood CNP coenzyme Q10 10 mg capsule Take 10 mg by mouth daily . Yes Historical Provider, furosemide (LASIX) 20 MG tablet Take 1 (one) tablet (20 mg total) by mouth daily . 11/13/20 Yes Bernice Leo, ADITHYA Saccharomyces boulardii (Probiotic, S.boulardii,) 250 mg capsule Take 250 mg by mouth daily . Yes Historical Provider, selenium 200 mcg Tab Take 200 mcg by mouth 2 (two) times a day . Yes Historical Provider, spironolactone (ALDACTONE) 25 MG tablet Take 1 (one) tablet (25 mg total) by mouth daily . 10/09/20 11/13/20 Yes Nissa Underwood CNP valsartan (DIOVAN) 40 MG tablet Take 0.5 (one-half) tablet (20 mg total) by mouth daily with lunch . 10/18/20 11/17/20 Yes Ignacio Olivo CNP warfarin (COUMADIN) 2.5 MG tablet Take one tablet by mouth daily or as directed by Coumadin clinic . 10/09/20 10/09/21 Yes Nissa Underwood CNP furosemide (LASIX) 20 MG tablet Take 1 (one) tablet (20 mg total) by mouth 2 (two) times a day . 10/26/20 11/13/20 Yes Bernice Leo, DOCUMENT MANAGEMENT SPECIALIST Wt Readings from Last 3 Encounters: 11/13/20 97.5 kg (215 lb) 10/26/20 111.5 kg (245 lb 14.4 oz) 10/18/20 112 kg (247 lb) General: Well appearing, well dressed, clean Psych: Normal affect and mood, makes good eye contact, positive conversation Skin: P, W, D; denies open areas or rashes Breath Sounds: CTA A/P SOB: denies all dyspnea PND: denies Pt can sleep flat:states yes with one pillow Heart Sounds: Regular, S1, S2 Edema: 1+ pitting to BLE (Rebel and his reported that there was none, so I showed them how to push on the pierre to check for pitting), No JVD appreciated, abdomen soft Dizzy or lightheadedness: denies, even with position changes GI/: no problems identified Activity: remains very active, is no longer taking an afternoon nap, was able to walk a mile yesterday, operating heavy machinery Appetite: denies problem Education: Diet: 2000mg (2 gm) Sodium diet. Do not add salt to food or cook with salt. Check labels for Sodium (Na). 2 liter (64ounces) fluid restriction Weigh yourself each day: Record your weight in your weight log. Call Heart Failure clinic ([phone]) for Difficulty breathing, especially at rest or when lying flat in bed Frequent dry, hacking cough, especially when lying down Waking up breathless at night Swollen feet, ankles, legs, or abdomen Increased tiredness or fatigue If you become dizzy or Lightheaded. Assessment & Plan this visit: Please decrease your furosemide to 20 mg oral daily Please get back to taking Lipitor Return to see us late November Asuncion Valdivia RN, CCRN, CHFN documented in this encounter [facility] 11-13-2020 Instructions Bernice Leo CNS - 11/13/2020 2:57 PM EDT Please decrease furosemide to once a day. Increase as needed for increased weight and swelling. Please get back on atorvastatin. documented in this encounter [facility] 10-30-2020 History of Presen t illness Narrative Pt s/p PTCA. Pt prefers to complete his cardiac rehab in [facility]. Referral faxed to [facility]. documented in this encounter [facility] 10-26-2020 History of Presen t illness Narrative Scott presents at this time to the HF clinic for his initial visit. He is accompanied by his Ivan today. RN led education provided to guide therapy and encourage compliance. We discussed the following topics in detail. - Value of daily weight monitoring, recording and reporting - Fluid intake and thirst recommendations - Sodium recommendations, label reading, consideration of serving size - Diet resources, including [email or web address] - OTC medications to avoid - Symptom recognition - Activity recommendations, using talk test as a guide at home and safety considered. Scott and ivan live in a home in [place]. 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 They have been meticulous with his diet since being released from the hospital, striving for less than 2,000 mg sodium / day. They had been restricting fluid to 1200 mL and they were encouraged to allow that up to 64oz/day. LifeVest therapy was reviewed and course of treatment discussed. We talked about cardiac rehab as a part of his recovery. They were issued the Living With Heart Failure booklet and weight and BP logs to take home. Much encouragement offered. [facility] NAME: Scott Arevalo DATE OF : 1955 MEDICAL RECORD#: [id number] SECURITY INCIDENT RESPONSE ENGINEER: Vern Blunt MD TODAY'S DATE: 10/26/2020 Subjective Scott Arevalo is a 64 y.o. male with a h/o HFrEF, noncompaction cardiomyopathy, CAD, who presents today for his first visit to the heart failure clinic. The patient is accompanied today by his . He is wearing a Lifevest. Mr. Arevalo presents after a recent hospitalization for acute heart failure(10/02/2020-10/09/2020) He presented to the ED on 10/02/2020 w/ a c/o SOB and lower extremities. His history dates back to April 2020 when he was in [place] and acquired a parasite and bacterial infection which was treated with antibiotics.. After that he was noted to have a low ejection fraction and was treated with diuretics (lasix). When there was no improvement in in his EF he was set up to see Dr. Blunt and was awaiting his outpatient appointment. In the interim he has developed volume overload and he and believe he has gained approximately 8 pounds. During his hospitalization he had a PCI to his LAD and was found to have LV noncompaction and MR. He was started on coumadin and sent home with a Lifevest. We discussed symptoms to monitor and report. He has been monitoring his weight and BPs at home. Weight has been stable, BPs 90-110 systolic. His lungs are clear, pitting 3+ bilateral pedal edema. He stated that he had pedal edema since his parasite infection. No open wounds or redness. We discussed guideline directed medical therapy for HFrEF. He is on an adequate beta blockade, ARB and an aldosterone receptor antagonist. We discussed the importance of increasing these to their highest tolerated doses to achieve maximal benefit. We discussed Entresto and how it could benefit him. He has been hypotensive and decreased valsartan to 20 mg a day. He continues to have significant pedal edema. He will increase lasix to 20 mg BID. Mr. Arevalo lives with his . 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 He stated that he has been able to climb onto the bulldozer, which he had not been able to do prior to his hospitalization. We discussed a low sodium meal plan. He and his have made good changes to his diet, limiting sodium. He does not drink excessive fluids. We discussed a low level activity plan. We discussed cardiac rehab. He was interested and signed up. He has not been walking as he was afraid to do too much. He was encouraged to walk 2 minutes 4 times a day. Congestive Heart Failure Intake General Data In CHF program?: Yes Heart Failure etiology: Non-ischemic Heart Failure type: Systolic Device: WCD Received HF educational booklet: Pos 6 minute walk in past year: Neg NYHA functional class: III Last Ejection Fraction: 15 Date: 09/26/20 Modality: Echocardiogram Systolic HF medication titration data On BetaBlocker?: Yes Dosing: Still being titrated On TRELL/ARB/ARNI: ARB Dosing: Still being titrated On Aldosterone Antagonist?: Yes On Ivabradine?: No On Digoxin?: No On Hydralazine?: No On Nitrate?: No CARDIAC HISTORY INCLUDES: 10/09/2020 Cardiac MRI 1. Severe LV enlargement with global dysfunction with segmental features. Prominent LV trabeculations in the mid and apical lateral wall and LV apex. Non compacted to compacted ratio of 2.8:1 c/w LV non compaction. No myocardial thrombus noted with long TI imaging. 2. No myocardial inflammation with T2 mapping. There is mid myocardial scar in the septum c/w non ischemic cardiomyopathy. There is also subendocardial scar in the basal and mid inferolateral scar seen with prior infarction. 3. RV is severely enlarged with severe RV dysfunction. Prominent RV trabeculations. 4. Moderate MR with RF of 30%, secondary to LV enlargement. 10/06/2020 Cath and PCI Two vessel severe calcific obstructive CAD. Successful percutaneous coronary intervention of mid LAD with ABEBE x 1 iFR of LAD 0.86 Elevated left Heart Filling pressures Elevated Right Heart Filling Pressures Severe pulmonary hypertension Normal Cardiac output and cardiac index Successful TR Band deployment to right RA. Recommendations: Aggressive risk factor modification Continued medical therapy and follow-up with primary garage manager Aspirin 81 mg daily indefinitely and clopidogrel 75 mg daily for ideally 6-12 months, or longer at the discretion of the primary garage manager GDMT for congestive heart failure and functional MR 09/26/2020 Echo Summary 1. Left ventricular chamber dimension is severely enlarged. 2. Global hypokinesis of the left ventricle. 3. Left ventricular systolic function is severely reduced with an ejection fraction by Biplane Method of Discs of 15 %. 4. The left ventricular diastolic function is grade III diastolic dysfunction, consistent with markedly elevated left atrial pressure (restrictive LV filling). 5. Right ventricular chamber dimension is severely enlarged. 6. Right ventricular systolic function is severly reduced. 7. There is pulmonary hypertension, estimated right ventricle systolic pressure is 59 mmHg. 8. There is 3+ centrally directed mitral valve regurgitation Histories: Past Medical History: Diagnosis Date Cardiomyopathy (HCC) dilated CHF (congestive heart failure) (HCC) Gout Past Surgical History: Procedure Laterality Date CARDIAC CATHETERIZATION N/A 10/06/2020 Procedure: Left and Right Heart Cath; Surgeon: Dorian Barney MD; Location: [facility]; Service: Cardiovascular CARDIAC CATHETERIZATION CORONARY STENT PLACEMENT Current Medications: Current Outpatient Medications Medication Sig Dispense Refill bisoprolol (ZEBETA) 5 MG tablet Take 1 (one) tablet (5 mg total) by mouth daily Start: 10/10/20. 30 tablet 11 clopidogreL (PLAVIX) 75 mg tablet Take 1 (one) tablet (75 mg total) by mouth daily Start: 10/10/20. 30 tablet 11 coenzyme Q10 10 mg capsule Take 10 mg by mouth daily . furosemide (LASIX) 20 MG tablet Take 1 (one) tablet (20 mg total) by mouth 2 (two) times a day . 60 tablet 11 Saccharomyces boulardii (Probiotic, S.boulardii,) 250 mg capsule Take 250 mg by mouth daily . selenium 200 mcg Tab Take 200 mcg by mouth 2 (two) times a day . spironolactone (ALDACTONE) 25 MG tablet Take 1 (one) tablet (25 mg total) by mouth daily . 30 tablet 11 valsartan (DIOVAN) 40 MG tablet Take 0.5 (one-half) tablet (20 mg total) by mouth daily with lunch . 30 tablet 11 warfarin (COUMADIN) 2.5 MG tablet Take one tablet by mouth daily or as directed by Coumadin clinic . 30 tablet 11 No current facility-administered medications for this visit. Allergies Allergen Reactions Metoprolol GI Intolerance Bee Venom Protein (Honey Bee) Hives, edema Carvedilol hives Celexa [Citalopram] ED Hydroxyzine Increased anxiety Lisinopril cough Morphine vomiting Review of Systems Constitutional: Positive for malaise/fatigue. Negative for weight gain. HENT: Negative for congestion. Cardiovascular: Positive for dyspnea on exertion and leg swelling. Negative for chest pain, orthopnea and paroxysmal nocturnal dyspnea. Respiratory: Negative. Skin: Negative. Musculoskeletal: Negative. Gastrointestinal: Negative for bloating, constipation and diarrhea. Genitourinary: Positive for nocturia. Negative for dysuria. Neurological: Negative for dizziness, headaches and light-headedness. Psychiatric/Behavioral: Negative for depression. The patient does not have insomnia. Objective: Physical Exam Constitutional: Appearance: Normal appearance. He is obese. HENT: Head: Normocephalic and atraumatic. Eyes: Conjunctiva/sclera: Conjunctivae normal. Cardiovascular: Rate and Rhythm: Normal rate and regular rhythm. Pulses: Normal pulses. Heart sounds: Normal heart sounds. Pulmonary: Effort: Pulmonary effort is normal. Breath sounds: Normal breath sounds. Abdominal: General: Bowel sounds are normal. Palpations: Abdomen is soft. Musculoskeletal: Cervical back: Normal range of motion. Right lower leg: Edema present. Left lower leg: Edema present. Skin: General: Skin is warm and dry. Neurological: Mental Status: He is alert and oriented to person, place, and time. Psychiatric: Mood and Affect: Mood normal. Behavior: Behavior normal. Thought Content: Thought content normal. Judgment: Judgment normal. Vitals: Vitals: 10/26/20 1044 BP: 113/79 BP Location: Right arm Patient Position: Sitting BP Cuff Size: Adult Pulse: 62 Resp: 14 SpO2: 98% Weight: 111.5 kg (245 lb 14.4 oz) Height: 5' 10 Lab Review: Recent labs reviewed with patient Assessment & Plan: Plan IMPRESSION: HFrEF Etiology: ischemic? Most recent known EF: 15 Stage: C NYHA Class: III His weight has been stable, bilateral pitting pedal edema Essential hypertension: Currently under good control CAD - 10/06/2020 cath and PCI Two vessel severe calcific obstructive CAD. Successful percutaneous coronary intervention of mid LAD with ABEBE x 1 iFR of LAD 0.86 Elevated left Heart Filling pressures Elevated Right Heart Filling Pressures Severe pulmonary hypertension. 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 Diet counseling: Patient was counseled on low sodium heart healthy diet. FOLLOW-UP SCHEDULE: Patient is currently scheduled to follow-up with Dr. Blunt INR is followed by: Yevgeniy Patient will return to see us in 2 weeks 60 minutes was spent w/ the patient. Over half of this time was spent in counseling regarding medication therapy, treatments, activity, diet planning including teaching and review of reports with patient. There is collaboration between the DOCUMENT MANAGEMENT SPECIALIST and the consulting/collaborating physician regarding this patient's plan of care. Dr. Vern Blunt MD has been updated regarding the patient's status via EMR. Thank you for allowing us to participate in the care of our patient. Please call if you have any further questions. Signature: ADITHYA Bell documented in this encounter [facility] 10-26-2020 Instructions Bernice Leo CNS - 10/26/2020 11:14 AM EDT Please increase furosemide to 20 mg twice a day Please walk 2 minutes 4 times a day. documented in this encounter [facility] 10-18-2020 History of Presen t illness Narrative [facility] [address]) [facility] [address] [facility] [id number] Physicians: Cristofer Zarate MD (Family); No ref. provider found (Referring) Today's Chief Complaint: No chief complaint on file. HISTORY: Subjective I had the pleasure of seeing Mr. Arevalo in follow up today at the [facility] in [place]. is a 64 y.o. male who has a past medical history of Cardiomyopathy (HCC) and Gout.. Patient presented to the hospital with decompensated severe biventricular systolic and diastolic dysfunction. LVEF 15% 3+ MR and pulmonary hypertension. Patient reports a history of a parasitic infection that he obtained in [place]. Since that time he has noticed increased shortness of breath and swelling in his abdomen, legs and scrotum. Patient was scheduled to see cardiology as an outpatient, however due to worsening edema and failure of his outpatient diuretic he presented to the emergency room. Once patient euvolemic, recommendations for right and left heart catheterization, followed by cardiac MRI with possible referral to structural heart team. Impression/Plan: Acute left-sided CHF (congestive heart failure) (HCC) Echocardiogram 09/26/2020 showed LV chamber dimensions severely enlarged. Global hypokinesis of the left ventricle. Severely reduced LV systolic function. EF by biplane 15%. Grade 3 diastolic dysfunction. RV chamber dimensions severely enlarged. RV systolic function severely reduced. Pulmonary hypertension estimated RVSP 59 mmHg. 3+ centrally directed mitral valve regurgitation. LHC/RHC 10/06/2020 showed two-vessel severe calcific obstructive CAD. Underwent successful catheter-based intervention with ABEBE to mid LAD. RCA showed severe calcification along its entire length from proximal to distal segments. There was a moderate 50% lesion in the mid RCA. The RPLB had a discrete 80% stenosis but the vessel is 2 mm at best. Elevated right heart filling pressures. Severe pulmonary hypertension. Normal cardiac output and cardiac index. Cardiac MRI 10/09/2020 showed severe biventricular dysfunction with morphologic features consistent with LV and RV noncompaction. Recommendations for follow-up in the OP setting for possible ICD implantation. Patient was to be discharged home with LifeVest. Recommendations for systemic OAC with warfarin as this was more affordable then DOAC. He was to be scheduled for limited echocardiogram in 3 months. In the office today, patient states he is feeling great he reports this is the best I felt in a very long time he does report fatigue, however patient extended hospital stay. I have explained the process of deconditioning and it can take some time to build strength back up. He is attempting to be active at home, he is wearing the LifeVest. He denies any issues. He denies syncope or near syncope. He denies PND orthopnea. He does note lower extremity edema by the end of the day, however he wakes up without edema. He is monitoring his weights as well as his fluid intake at home. He did report issues with extreme fatigue and low blood pressures at home following Diovan 40 mg daily. His has since cut that to 20 mg daily. His blood pressures have maintained SBP 90s to 100s. He is feeling much improved after this change. He follows with the [facility]. He continues to have weekly INRs until therapeutic. We have scheduled patient for his 3-month limited echocardiogram. He has follow-up scheduled with CHF team, garage manager and with EP. He has been instructed to call our office with any questions or concerns he has prior to his next scheduled appointment. FOR THE RECORD: Diagnostic Studies/Labs personally reviewed: Hospital and EMR records reviewed. Problem Acute Left-Sided Chf (Congestive Heart Failure) (Hcc) Allergies: is allergic to bee venom protein (honey bee), carvedilol, celexa [citalopram], hydroxyzine, lisinopril, and morphine. Medications: (list name, dose, frequency, and last dose taken): Current Outpatient Medications: atorvastatin (LIPITOR) 40 MG tablet, Take 1 (one) tablet (40 mg total) by mouth nightly ., Disp: 30 tablet, Rfl: 11 bisoprolol (ZEBETA) 5 MG tablet, Take 1 (one) tablet (5 mg total) by mouth daily Start: 10/10/20., Disp: 30 tablet, Rfl: 11 clopidogreL (PLAVIX) 75 mg tablet, Take 1 (one) tablet (75 mg total) by mouth daily Start: 10/10/20., Disp: 30 tablet, Rfl: 11 coenzyme Q10 10 mg capsule, Take 10 mg by mouth daily ., Disp: , Rfl: furosemide (LASIX) 20 MG tablet, Take 20 mg by mouth daily ., Disp: , Rfl: Saccharomyces boulardii (Probiotic, S.boulardii,) 250 mg capsule, Take 250 mg by mouth daily ., Disp: , Rfl: selenium 200 mcg Tab, Take 200 mcg by mouth 2 (two) times a day ., Disp: , Rfl: spironolactone (ALDACTONE) 25 MG tablet, Take 1 (one) tablet (25 mg total) by mouth daily ., Disp: 30 tablet, Rfl: 11 valsartan (DIOVAN) 40 MG tablet, Take 1 (one) tablet (40 mg total) by mouth daily with lunch Start: 10/10/20., Disp: 30 tablet, Rfl: 11 warfarin (COUMADIN) 2.5 MG tablet, Take one tablet by mouth daily or as directed by Coumadin clinic ., Disp: 30 tablet, Rfl: 11 Past Medical History: Diagnosis Date Cardiomyopathy (HCC) dilated Gout Past Surgical History: Procedure Laterality Date CARDIAC CATHETERIZATION N/A 10/06/2020 Procedure: Left and Right Heart Cath; Surgeon: Dorian Barney MD; Location: [facility]; Service: Cardiovascular REVIEW OF SYSTEMS Review of Systems Constitutional: Negative for chills and fever. HENT: Negative for congestion, nosebleeds and tinnitus. Eyes: Negative for blurred vision and double vision. Cardiovascular: Positive for leg swelling (at times ). Negative for chest pain, dyspnea on exertion, near-syncope and syncope. Respiratory: Negative for cough and shortness of breath. Endocrine: Negative for cold intolerance and heat intolerance. Hematologic/Lymphatic: Does not bruise/bleed easily. Skin: Negative for color change and rash. Musculoskeletal: Negative for muscle cramps and muscle weakness. Gastrointestinal: Negative for abdominal pain, change in bowel habit, nausea and vomiting. Genitourinary: Negative for dysuria. Neurological: Negative for dizziness and light-headedness. Psychiatric/Behavioral: Negative for altered mental status. PHYSICAL EXAM General appearance: Patient appears in no acute distress. There were no vitals taken for this visit. Wt Readings from Last 3 Encounters: 10/08/20 106.8 kg (235 lb 7.2 oz) 10/08/20 106.8 kg (235 lb 7.2 oz) There is no height or weight on file to calculate BMI. Physical Exam Constitutional: General: He is not in acute distress. Appearance: He is well-developed. HENT: Head: Normocephalic and atraumatic. Eyes: General: No scleral icterus. Conjunctiva/sclera: Conjunctivae normal. Neck: Vascular: No JVD. Cardiovascular: Rate and Rhythm: Normal rate and regular rhythm. Pulses: Intact distal pulses. Heart sounds: Normal heart sounds. No friction rub. No gallop. Pulmonary: Effort: Pulmonary effort is normal. No respiratory distress. Breath sounds: Normal breath sounds. Abdominal: General: There is no distension. Palpations: Abdomen is soft. Musculoskeletal: Cervical back: Neck supple. Right lower leg: Edema present. Left lower leg: Edema present. Skin: General: Skin is warm and dry. Neurological: Mental Status: He is alert and oriented to person, place, and time. Psychiatric: Behavior: Behavior normal. Thought Content: Thought content normal. Judgment: Judgment normal. Ignacio Olivo CNP documented in this encounter [facility] 10-18-2020 Instructions Fang Castro [facility] - 10/18/2020 10:30 AM EDT ..How to contact your Care Team: Provider: Vern Blunt MD Nurse: Fazal Fernandez RN In case of an emergency please call 911. REFILLS: When in need for refills please call your care team or the office at [phone]. Please include medication name, pharmacy name, and specify 30-day or 90-day supply. Please check with your pharmacy within 24 hours of request for your refill. You must follow up as directed to continue current refills. Thank you documented in this encounter [facility] 10-17-2020 Miscellaneous Notes Associated Problem(s): Acute left-sided CHF (congestive heart failure) (HCC) Echocardiogram 09/26/2020 showed LV chamber dimensions severely enlarged. Global hypokinesis of the left ventricle. Severely reduced LV systolic function. EF by biplane 15%. Grade 3 diastolic dysfunction. RV chamber dimensions severely enlarged. RV systolic function severely reduced. Pulmonary hypertension estimated RVSP 59 mmHg. 3+ centrally directed mitral valve regurgitation. LHC/RHC 10/06/2020 showed two-vessel severe calcific obstructive CAD. Underwent successful catheter-based intervention with ABEBE to mid LAD. RCA showed severe calcification along its entire length from proximal to distal segments. There was a moderate 50% lesion in the mid RCA. The RPLB had a discrete 80% stenosis but the vessel is 2 mm at best. Elevated right heart filling pressures. Severe pulmonary hypertension. Normal cardiac output and cardiac index. documented in this encounter [facility] 10-09-2020 Miscellaneous Notes Seen by [place] [facility] Home, reviewed AVS, verbalizes understanding, denies any further needs. Cardiology Progress Note [facility] Cardiology Sign-Off Discharge Medications: Coumadin 5mg tablet strength. Pharmacy recommends 2.5mg daily at discharge (management per [facility]); Plavix 75mg daily; Valsartan 40mg daily; Aldactone 25mg daily; Lasix 20mg daily; Bisoprolol 5mg daily; and noncardiac medication. Follow-up Imaging, Testing: Limited echo in 3 months. Follow-up Appointments: Please see AVS summary for OP details. Additional Instructions Reviewed with Patient and/or Family: Compliance with follow-up. Compliance with medications. Diet Instructions: low fat and low salt diet.. Assessment/Plan: * Acute left-sided CHF (congestive heart failure) (HCC) Assessment & Plan [facility] 10/06/2020 showed Two-vessel severe calcific obstructive CAD. iFR of mid LAD 0.86. Subsequently underwent successful catheter-based intervention with 3.0 x 32 mm Synergy ABEBE to mid LAD, achieving residual stenosis of 0% RONALD-3 flow post procedure. Elevated left heart filling pressures. Elevated right heart filling pressures. Severe pulmonary hypertension. Normal cardiac output and cardiac index. Labs reviewed. Potassium 3.9; magnesium 1.9; creatinine 1.26, GFR 59; H/H 13.9/44.6 Telemetry reviewed. SR with episodes of NSVT. Plan: Continue GDMT including DAPT (ASA/Plavix), bisoprolol, Aldactone, will resume IV Lasix. Continue to monitor renal function. We will plan for cardiac MRI on Friday. LifeVest has been approved, will be fitted on Friday. Further recommendations pending results of MRI. Update 10/08/2020: Patient reports I feel great today he states his breathing has improved. He does endorse continued LE edema and some abdominal fullness. He did have issues with IV potassium yesterday causing a fair amount of distress and pain. Labs reviewed. Potassium 4.2; magnesium 1.9; creatinine 1.20, GFR 63; H/H 13.5/43.5 Plan: Remains volume overloaded although symptomatically improved. Back on IV diuresis following contrast load from [facility] on Friday. No weights recorded for 2 days. Have requested daily standing weights please. Strict I/Os and fluid restriction. Serial labs. Have ordered albumin level. Continue GDMT including DAPT (Plavix/ASA), BB and statin added. Continue aldosterone antagonist. Allergy listed to TRELL-I. Could consider ARB in preparation for possible ARNi if BP allows. Cardiac MRI tomorrow. LifeVest before discharge. Will require repeat limited echo in 3 months, possible EP referral for consideration of ICD for primary prevention. Continue to follow. 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 He will need to be evaluated in the outpatient setting for ICD implantation. He will be fitted for LifeVest prior to discharge home. Recommendations are to start on warfarin therapy with INR goal 2.0-3.0. This is more affordable than the Eliquis and Xarelto treatment. They will follow-up in the [facility] for management of INR levels and dosing of his Coumadin. Because we are starting him on Coumadin therapy we will stop his aspirin. He will be on Coumadin and Plavix. His volume status has improved. We will optimize his cardiomyopathy with continuation of bisoprolol and Lasix. I have discussed with him about his spironolactone therapy as they have been refusing this dosing every day he has been here. They are aware of the purpose of spironolactone and cardiomyopathy. They are agreeable to restart taking. Patient does have a listed allergy for lisinopril as it produced a cough. We will start him on valsartan 40 mg daily. He should continue Lipitor at discharge. Compression stockings also recommended. Patient has opted for [facility] in [place], [place] for his prescriptions. I have electronically sent them to this pharmacy. From a cardiology standpoint, we are signing off and will follow up with patient in the OP setting. LOS: 7 days Subjective: Mr. Arevalo denies chest pain, dyspnea, palpitations, pain or swelling in the groin or dizziness. Lower extremity edema improved. Objective: Vital signs in last 24 hours: Temp: [97.4 F (36.3 C)-97.7 F (36.5 C)] 97.5 F (36.4 C) Heart Rate: [66-72] 68 Resp: [14-16] 15 BP: (99-126)/(68-87) 115/78 Physical Exam: Alert, no acute distress. Sitting in chair eating lunch JVP is not elevated Heart is regular rate and rhythm. No gallop or rub. No murmur Lungs are clear to ausculation bilaterally. Nonlabored respirations. Abdomen soft and nontender. Lower extremities with pitting 1-2+ edema. New cardiac test results if any: Imaging: Lab Review Today's available lab reviewed. Problem: Actual or potential alteration in health Goal: Absence of healthcare acquired conditions Outcome: Partially Met Goal: Knowledge of Interdisciplinary Plan of Care Outcome: Partially Met Goal: Knowledge of Enviroment Outcome: Partially Met Problem: Pressure Ulcer - Risk of Goal: Absence of pressure ulcer Outcome: Partially Met Problem: Cardiac Output - Decreased Goal: Cardiac output within specified parameters Outcome: Partially Met Problem: Activity Intolerance Goal: Improved activity tolerance Outcome: Partially Met Problem: Cardiac Output - Decreased Goal: Cardiac output within specified parameters Outcome: Partially Met Problem: Fluid Volume - Excess Goal: Absence of fluid overload signs and symptoms Outcome: Partially Met Problem: Gas Exchange - Impaired Goal: Adequate oxygenation Outcome: Partially Met Problem: Mood - Altered Goal: Evidence of effective coping Outcome: Partially Met Problem: Anxiety Goal: Goal Outcome: Partially Met Problem: Plan for Discharge Goal: Knowledge of discharge plan and instructions Outcome: Partially Met Problem: Activity Intolerance Goal: Improved activity tolerance Outcome: Partially Met Problem: Cardiac Output - Decreased Goal: Cardiac output within specified parameters Outcome: Partially Met Problem: Fluid Volume - Excess Goal: Absence of fluid overload signs and symptoms Outcome: Partially Met Problem: Gas Exchange - Impaired Goal: Adequate oxygenation Outcome: Partially Met Problem: Mood - Altered Goal: Evidence of effective coping Outcome: Partially Met Problem: Anxiety Goal: Goal Outcome: Partially Met Problem: Plan for Discharge Goal: Knowledge of discharge plan and instructions Outcome: Partially Met Problem: Plan for Discharge Goal: Knowledge of discharge plan and instructions Outcome: Partially Met Associated Problem(s): Acute left-sided CHF (congestive heart failure) (HCC) [facility] 10/06/2020 showed Two-vessel severe calcific obstructive CAD. iFR of mid LAD 0.86. Subsequently underwent successful catheter-based intervention with 3.0 x 32 mm Synergy ABEBE to mid LAD, achieving residual stenosis of 0% RONALD-3 flow post procedure. Elevated left heart filling pressures. Elevated right heart filling pressures. Severe pulmonary hypertension. Normal cardiac output and cardiac index. Labs reviewed. Potassium 3.9; magnesium 1.9; creatinine 1.26, GFR 59; H/H 13.9/44.6 Telemetry reviewed. SR with episodes of NSVT. Plan: Continue GDMT including DAPT (ASA/Plavix), bisoprolol, Aldactone, will resume IV Lasix. Continue to monitor renal function. We will plan for cardiac MRI on Friday. LifeVest has been approved, will be fitted on Friday. Further recommendations pending results of MRI. Update 10/08/2020: Patient reports I feel great today he states his breathing has improved. He does endorse continued LE edema and some abdominal fullness. He did have issues with IV potassium yesterday causing a fair amount of distress and pain. Labs reviewed. Potassium 4.2; magnesium 1.9; creatinine 1.20, GFR 63; H/H 13.5/43.5 Plan: Remains volume overloaded although symptomatically improved. Back on IV diuresis following contrast load from [facility] on Friday. No weights recorded for 2 days. Have requested daily standing weights please. Strict I/Os and fluid restriction. Serial labs. Have ordered albumin level. Continue GDMT including DAPT (Plavix/ASA), BB and statin added. Continue aldosterone antagonist. Allergy listed to TRELL-I. Could consider ARB in preparation for possible ARNi if BP allows. Cardiac MRI tomorrow. LifeVest before discharge. Will require repeat limited echo in 3 months, possible EP referral for consideration of ICD for primary prevention. Continue to follow. 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 He will need to be evaluated in the outpatient setting for ICD implantation. He will be fitted for LifeVest prior to discharge home. Recommendations are to start on warfarin therapy with INR goal 2.0-3.0. This is more affordable than the Eliquis and Xarelto treatment. They will follow-up in the [place] [facility] for management of INR levels and dosing of his Coumadin. Because we are starting him on Coumadin therapy we will stop his aspirin. He will be on Coumadin and Plavix. His volume status has improved. We will optimize his cardiomyopathy with continuation of bisoprolol and Lasix. I have discussed with him about his spironolactone therapy as they have been refusing this dosing every day he has been here. They are aware of the purpose of spironolactone and cardiomyopathy. They are agreeable to restart taking. Patient does have a listed allergy for lisinopril as it produced a cough. We will start him on valsartan 40 mg daily. He should continue Lipitor at discharge. Compression stockings also recommended. Patient has opted for [facility] in [place], [place] for his prescriptions. I have electronically sent them to this pharmacy. From a cardiology standpoint, we are signing off and will follow up with patient in the OP setting. Problem: Actual or potential alteration in health Goal: Absence of healthcare acquired conditions Outcome: Partially Met Problem: Pressure Ulcer - Risk of Goal: Absence of pressure ulcer Outcome: Partially Met Problem: Cardiac Output - Decreased Goal: Cardiac output within specified parameters Outcome: Partially Met Problem: Activity Intolerance Goal: Improved activity tolerance Outcome: Partially Met Problem: Actual or potential alteration in health Goal: Absence of healthcare acquired conditions Outcome: Partially Met Goal: Knowledge of Interdisciplinary Plan of Care Outcome: Partially Met Goal: Knowledge of Enviroment Outcome: Partially Met Problem: Pressure Ulcer - Risk of Goal: Absence of pressure ulcer Outcome: Partially Met Problem: Cardiac Output - Decreased Goal: Cardiac output within specified parameters Outcome: Partially Met Problem: Activity Intolerance Goal: Improved activity tolerance Outcome: Partially Met Problem: Cardiac Output - Decreased Goal: Cardiac output within specified parameters Outcome: Partially Met Problem: Fluid Volume - Excess Goal: Absence of fluid overload signs and symptoms Outcome: Partially Met Problem: Gas Exchange - Impaired Goal: Adequate oxygenation Outcome: Partially Met Problem: Mood - Altered Goal: Evidence of effective coping Outcome: Partially Met Problem: Anxiety Goal: Goal Outcome: Partially Met Problem: Plan for Discharge Goal: Knowledge of discharge plan and instructions Outcome: Partially Met Problem: Activity Intolerance Goal: Improved activity tolerance Outcome: Partially Met Problem: Cardiac Output - Decreased Goal: Cardiac output within specified parameters Outcome: Partially Met Problem: Fluid Volume - Excess Goal: Absence of fluid overload signs and symptoms Outcome: Partially Met Problem: Gas Exchange - Impaired Goal: Adequate oxygenation Outcome: Partially Met Problem: Mood - Altered Goal: Evidence of effective coping Outcome: Partially Met Problem: Anxiety Goal: Goal Outcome: Partially Met Problem: Plan for Discharge Goal: Knowledge of discharge plan and instructions Outcome: Partially Met Problem: Plan for Discharge Goal: Knowledge of discharge plan and instructions Outcome: Partially Met POC reviewed. Problem: Actual or potential alteration in health Goal: Absence of healthcare acquired conditions Outcome: Partially Met Goal: Knowledge of Interdisciplinary Plan of Care Outcome: Partially Met Goal: Knowledge of Enviroment Outcome: Partially Met Problem: Pressure Ulcer - Risk of Goal: Absence of pressure ulcer Outcome: Partially Met Problem: Cardiac Output - Decreased Goal: Cardiac output within specified parameters Outcome: Partially Met Problem: Activity Intolerance Goal: Improved activity tolerance Outcome: Partially Met Problem: Cardiac Output - Decreased Goal: Cardiac output within specified parameters Outcome: Partially Met Problem: Fluid Volume - Excess Goal: Absence of fluid overload signs and symptoms Outcome: Partially Met Problem: Gas Exchange - Impaired Goal: Adequate oxygenation Outcome: Partially Met Problem: Mood - Altered Goal: Evidence of effective coping Outcome: Partially Met Problem: Anxiety Goal: Goal Outcome: Partially Met Problem: Plan for Discharge Goal: Knowledge of discharge plan and instructions Outcome: Partially Met Problem: Activity Intolerance Goal: Improved activity tolerance Outcome: Partially Met Problem: Cardiac Output - Decreased Goal: Cardiac output within specified parameters Outcome: Partially Met Problem: Fluid Volume - Excess Goal: Absence of fluid overload signs and symptoms Outcome: Partially Met Problem: Gas Exchange - Impaired Goal: Adequate oxygenation Outcome: Partially Met Problem: Mood - Altered Goal: Evidence of effective coping Outcome: Partially Met Problem: Anxiety Goal: Goal Outcome: Partially Met Problem: Plan for Discharge Goal: Knowledge of discharge plan and instructions Outcome: Partially Met Problem: Plan for Discharge Goal: Knowledge of discharge plan and instructions Outcome: Partially Met Problem: Actual or potential alteration in health Goal: Absence of healthcare acquired conditions Outcome: Partially Met Goal: Knowledge of Interdisciplinary Plan of Care Outcome: Partially Met Goal: Knowledge of Enviroment Outcome: Partially Met Problem: Pressure Ulcer - Risk of Goal: Absence of pressure ulcer Outcome: Partially Met Problem: Cardiac Output - Decreased Goal: Cardiac output within specified parameters Outcome: Partially Met Problem: Activity Intolerance Goal: Improved activity tolerance Outcome: Partially Met Problem: Cardiac Output - Decreased Goal: Cardiac output within specified parameters Outcome: Partially Met Problem: Fluid Volume - Excess Goal: Absence of fluid overload signs and symptoms Outcome: Partially Met Problem: Gas Exchange - Impaired Goal: Adequate oxygenation Outcome: Partially Met Problem: Mood - Altered Goal: Evidence of effective coping Outcome: Partially Met Problem: Anxiety Goal: Goal Outcome: Partially Met Problem: Plan for Discharge Goal: Knowledge of discharge plan and instructions Outcome: Partially Met Problem: Cardiac Output - Decreased Goal: Cardiac output within specified parameters Outcome: Partially Met Problem: Fluid Volume - Excess Goal: Absence of fluid overload signs and symptoms Outcome: Partially Met Problem: Mood - Altered Goal: Evidence of effective coping Outcome: Partially Met Problem: Plan for Discharge Goal: Knowledge of discharge plan and instructions Outcome: Partially Met Problem: Actual or potential alteration in health Goal: Absence of healthcare acquired conditions Outcome: Partially Met Goal: Knowledge of Interdisciplinary Plan of Care Outcome: Partially Met Goal: Knowledge of Enviroment Outcome: Partially Met Problem: Pressure Ulcer - Risk of Goal: Absence of pressure ulcer Outcome: Partially Met Problem: Cardiac Output - Decreased Goal: Cardiac output within specified parameters Outcome: Partially Met Problem: Activity Intolerance Goal: Improved activity tolerance Outcome: Partially Met Problem: Cardiac Output - Decreased Goal: Cardiac output within specified parameters Outcome: Partially Met Problem: Fluid Volume - Excess Goal: Absence of fluid overload signs and symptoms Outcome: Partially Met Problem: Gas Exchange - Impaired Goal: Adequate oxygenation Outcome: Partially Met Problem: Mood - Altered Goal: Evidence of effective coping Outcome: Partially Met Problem: Plan for Discharge Goal: Knowledge of discharge plan and instructions Outcome: Partially Met Problem: Anxiety Goal: Goal Outcome: Partially Met documented in this encounter [facility] 10-09-2020 Hospital course Narrative HOSPITALIST DISCHARGE SUMMARY Patient: Scott Arevalo Account: [id number] Admitted: 10/02/2020 Discharge Date/Time: 10/09/2020 Clinical Summary FINAL DIAGNOSIS: Principal Problem: Acute left-sided CHF (congestive heart failure) ([facility]) REASON FOR HOSPITALIZATION AND ADMITTING DIAGNOSIS: Shortness of Breath Acute left-sided CHF (congestive heart failure) ([facility]) [I50.1] Acute on chronic combined systolic and diastolic congestive heart failure ([facility]) [I50.43] HOSPITAL COURSE: Scott Arevalo 64 y.o. male with significant history of decompensated with severe biventricular dysfunction and diastolic dysfunction, EF 15% with 3+ MR, pulmonary hypertension who presented to the hospital with worsening shortness of breath and fluid overload. Patient is admitted for acute CHF exacerbation as well as cardiology consultation. Principal Problem: Acute left-sided CHF (congestive heart failure) ([facility]) PLAN: Acute CHF exacerbation Dilated cardiomyopathy: Severe mitral regurgitation: Seen and examined Clinically stable On room air Saturation 96% [facility] 10/06/2020 showed Two-vessel severe calcific obstructive CAD. iFR of mid LAD 0.86. Subsequently underwent successful catheter-based intervention with 3.0 x 32 mm Synergy ABEBE to mid LAD, achieving residual stenosis of 0% RONALD-3 flow post procedure. Elevated left heart filling pressures. Elevated right heart filling pressures. Severe pulmonary hypertension. Normal cardiac output and cardiac index. 0.5% Weight 106.8 kg conditions the right Kidney function stable Lasix IV twice daily so BMP daily Aldactone daily Cardiac MRI Mild PRUDENCIO: Kidney function stable DVT prophylaxis: Lovenox DC HOME LIFE VEST PLAVIX AND COUMADIN CONDITION AT DISCHARGE: Stable Physical Examination: Blood pressure 115/78, pulse 68, temperature 97.5 F (36.4 C), temperature source Oral, resp. rate 15, height 5' 10 , weight 106.8 kg (235 lb 7.2 oz), SpO2 98 %. General appearance: alert, cooperative, in no acute distress. Head/Neck: Head- normocephalic. Neck- supple, non-tender, without lymphadenopathy Eyes: No Scleral icterus or pallor; EOMI ENT: Trachea midline. Cardiovascular: regular rate and rhythm; normal S1, S2; no murmurs, rubs, clicks or gallops; No/+ peripheral edema. Respiratory: lungs clear to auscultation; without wheezes, rales or rhonchi. Abdomen: soft, non tender, non-distended; positive bowel sounds. Neurological: alert, oriented, normal speech; no focal findings or movement disorder noted. Musculoskeletal: no significant deformity noted. Skin: normal coloration, texture and turgor; no lesions or eruptions. Procedures: No orders of the defined types were placed in this encounter. Consults: Procedures Hospitalize Patient To : Inpatient consult to Cardiology Inpatient consult to Cardiac Rehab Inpatient consult to Cardiac Rehab Inpatient consult to Cardiac Rehab Warfarin; Pharmacist to dose. Other Tests: Procedures Cardiac Catheterization LAST LABS: Results from last 7 days Lab Units 10/09/20 0255 SODIUM mmol/L 136 POTASSIUM mmol/L 3.9 CHLORIDE mmol/L 104 BUN mg/dL 36* CREATININE mg/dL 1.25 GLUCOSE mg/dL 91 CALCIUM mg/dL 8.6 Results from last 7 days Lab Units 10/08/20 0347 ALK PHOS U/L 184* BILIRUBIN TOTAL mg/dL 1.5* BILIRUBIN DIRECT mg/dL 0.9* TOTAL PROTEIN g/dL 6.3 ALTR U/L 21 AST U/L 25 Results from last 7 days Lab Units 10/09/20 1330 INR 1.6* Results from last 7 days Lab Units 10/09/20 0255 WBC K/mcL 7.09 HGB g/dL 13.5 HCT % 43.1 PLT K/mcL 296 Results from last 7 days Lab Units 10/03/20 0659 TSH mcIU/mL 1.31 Allergies: Bee venom protein (honey bee), Carvedilol, Celexa [citalopram], Hydroxyzine, Lisinopril, and Morphine Discharge Diet: Diet Special; Cardiac; 1200 mL (720 mL Nutrition / 480 mL Nursing) Disposition: HOME Discharge Medications Medication List START taking these medications atorvastatin 40 MG tablet Commonly known as: LIPITOR Take 1 (one) tablet (40 mg total) by mouth nightly . bisoprolol 5 MG tablet Commonly known as: ZEBETA Take 1 (one) tablet (5 mg total) by mouth daily Start: 10/10/20. Start taking on: October 10, 2020 clopidogreL 75 mg tablet Commonly known as: PLAVIX Take 1 (one) tablet (75 mg total) by mouth daily Start: 10/10/20. Start taking on: October 10, 2020 valsartan 40 MG tablet Commonly known as: DIOVAN Take 1 (one) tablet (40 mg total) by mouth daily with lunch Start: 10/10/20. Start taking on: October 10, 2020 warfarin 5 MG tablet Commonly known as: Coumadin Take 1 (one) tablet (5 mg total) by mouth daily Or as directed by the Coumadin clinic . CONTINUE taking these medications coenzyme Q10 10 mg capsule furosemide 20 MG tablet Commonly known as: LASIX Probiotic (S.boulardii) 250 mg capsule Generic drug: Saccharomyces boulardii selenium 200 mcg Tab spironolactone 25 MG tablet Commonly known as: ALDACTONE Take 1 (one) tablet (25 mg total) by mouth daily . STOP taking these medications allopurinoL 100 MG tablet Commonly known as: ZYLOPRIM apixaban 5 mg Tab Commonly known as: ELIQUIS Where to Get Your Medications These medications were sent to [facility] [address] [place] [address] Hours: 8:30 AM to 5:00 PM Mon-Fri atorvastatin 40 MG tablet bisoprolol 5 MG tablet clopidogreL 75 mg tablet spironolactone 25 MG tablet valsartan 40 MG tablet warfarin 5 MG tablet Physician(s) Family: Cristofer Zarate MD, , Address: [address] [place] [address] / [place] [id number] Follow Up: No follow-up provider specified. Patient instructions, including activity, were given to the patient/family at discharge. Please see the After Visit Summary in the medical record for details. Time spent on discharge: > 30 minutes Completed by: Mecca Stack on 10/09/20, 2:11 PM documented in this encounter [facility] 10-09-2020 History of Presen t illness Narrative PHARMACOTHERAPY NOTE: Warfarin Consult Assessment / Plan: INR Trend and Dose History: Date INR Warfarin Dose Reversal Agents New Interacting Medications 10/09 1.6 2.5 mg plavix lovenox (will be dc'd) 1. Pharmacy is managing warfarin dosing for this patient utilizing the following parameters: indication Other specify other non-impaction cardiomyopathy Goal INR Min 2.0 Goal INR Max 3.0 2. Based on patient risk factors, interacting medications, and INR trends, warfarin dose is 2.5 mg tonight. 3. Will order and evaluate PT/INR daily. 4. Please contact pharmacy if you have any questions regarding warfarin dosing. Subjective: Pharmacy is consulted to manage warfarin dosing for Scott Arevalo, a 64 y.o. male initiated on warfarin therapy: Home dose is N/A. INR on admission was 1.6. Past medical history reviewed. Objective: Hemorrhagic Risk Factors and other considerations include CHF, Age greater than 65, Antiplatelet Use, elevated baseline INR. Additional Anticoagulation: N/A. Dietary Considerations: Diet Ordered Labs include: Hemoglobin Date Value Ref Range Status 10/09/2020 13.5 13.5 - 17.5 g/dL Final Platelets Date Value Ref Range Status 10/09/2020 296 150 - 400 K/mcL Final Albumin Date Value Ref Range Status 10/08/2020 2.6 (L) 3.2 - 5.2 g/dL Final 10/08/2020 2.6 (L) 3.2 - 5.2 g/dL Final Pharmacist: Tiffanie Almonte RPh,PharmD Contact Number: [phone] [facility] Medicine Inpatient Follow-up 10/08/2020 Veronica Stahl MD [facility] Patient: Scott Arevalo Date of : 1955 (64 y.o.) PCP: Cristofer Zarate MD ASSESSMENT/PLAN: Scott Arevalo 64 y.o. male with significant history of decompensated with severe biventricular dysfunction and diastolic dysfunction, EF 15% with 3+ MR, pulmonary hypertension who presented to the hospital with worsening shortness of breath and fluid overload. Patient is admitted for acute CHF exacerbation as well as cardiology consultation. Principal Problem: Acute left-sided CHF (congestive heart failure) (HCC) PLAN: Acute CHF exacerbation Dilated cardiomyopathy: Severe mitral regurgitation: Continue IV Lasix 20 bid he is net - 5.7L. [facility] 10/06 showed severe pulmonary HTN, severe MR and had a ABEBE to mid LAD Continue GDMT including DAPT (ASA/Plavix), bisoprolol, Aldactone, will resume IV Lasix. Continue to monitor renal function. We will plan for cardiac MRI on Friday. LifeVest has been approved, will be fitted on Friday. Mild PRUDENCIO: Likely cardiorenal- resolved DVT prophylaxis: Lovenox SUBJECTIVE: Patient is alert and oriented, is on room air. Feeling much improved since diuresis. Patient is able to lay flat. All other systems reviewed and negative other than noted above. OBJECTIVE: Physical Examination: BP 109/68 Pulse 64 Temp 97.7 F (36.5 C) (Oral) Resp 16 Ht 5' 10 Wt 106.8 kg (235 lb 7.2 oz) SpO2 97% BMI 33.78 kg/m General Appearance: Alert, well appearing, and in no acute distress. HEENT: Head - Normocephalic, atraumatic. Eyes - PRO bilaterally and EOMI. Ears - normal external appearance, hearing intact. Nose - normal, no erythema. Throat - mucous membranes moist, pharynx without lesions. Neck: Supple, trachea midline. Cardiovascular: S1, S2 normal. No murmurs, rubs, clicks or gallops appreciated. No pedal edema. Respiratory: Lungs clear to auscultation, no wheezes, rales or rhonchi heard. Abdomen: Soft, non-tender, normal bowel sounds, non-distended, no masses or organomegaly appreciated. Neurological: Grossly normal motor and sensory exam. No focal deficits. Musculoskeletal: No joint tenderness, deformity or swelling. Skin: Normal coloration and turgor. No rashes. Psych: Alert, oriented x 3. Normal mood and affect. CURRENT MEDICATIONS: allopurinoL 100 mg Oral Daily aspirin 81 mg Oral Daily atorvastatin 40 mg Oral Nightly bisoprolol 5 mg Oral Daily clopidogreL 75 mg Oral Daily enoxaparin (LOVENOX) injection 40 mg Subcutaneous Daily furosemide 20 mg Intravenous BID spironolactone 25 mg Oral Daily Results/Medications Reviewed 10/08/20 11:54 AM: Results from last 7 days Lab Units 10/08/20 0347 10/07/20 0354 10/06/20 0705 SODIUM mmol/L 134* 135 136 POTASSIUM mmol/L 4.2 3.9 4.2 CHLORIDE mmol/L 103 102 100 BUN mg/dL 33* 32* 28* CREATININE mg/dL 1.20 1.26 1.42* GLUCOSE mg/dL 90 102* 82 CALCIUM mg/dL 8.6 8.8 8.6 Results from last 7 days Lab Units 10/08/20 0347 10/07/20 0354 10/06/20 0705 WBC K/mcL 6.89 6.21 6.85 HGB g/dL 13.5 13.9 13.9 HCT % 43.6 44.6 45.9 PLT K/mcL 295 328 312 Results from last 7 days Lab Units 10/02/20 1046 TROPONIN I ng/L <15 Results from last 7 days Lab Units 10/02/20 1046 INR 1.4* Results from last 7 days Lab Units 10/08/20 0347 ALK PHOS U/L 184* BILIRUBIN TOTAL mg/dL 1.5* BILIRUBIN DIRECT mg/dL 0.9* TOTAL PROTEIN g/dL 6.3 ALTR U/L 21 AST U/L 25 CULTURES: Reviewed 11:54 AM IMAGING: Reviewed 11:54 AM General Cardiology Inpatient Follow-up [facility] 10/08/2020 Ignacio Olivo, [facility] Patient: Scott Arevalo Date of : 1955 (64 y.o.) Referring Provider: No ref. provider found PCP: Cristofer Zarate MD Assessment/Plan: * Acute left-sided CHF (congestive heart failure) ([facility]) Assessment & Plan [facility] 10/06/2020 showed Two-vessel severe calcific obstructive CAD. iFR of mid LAD 0.86. Subsequently underwent successful catheter-based intervention with 3.0 x 32 mm Synergy ABEBE to mid LAD, achieving residual stenosis of 0% RONALD-3 flow post procedure. Elevated left heart filling pressures. Elevated right heart filling pressures. Severe pulmonary hypertension. Normal cardiac output and cardiac index. Labs reviewed. Potassium 3.9; magnesium 1.9; creatinine 1.26, GFR 59; H/H 13.9/44.6 Telemetry reviewed. SR with episodes of NSVT. Plan: Continue GDMT including DAPT (ASA/Plavix), bisoprolol, Aldactone, will resume IV Lasix. Continue to monitor renal function. We will plan for cardiac MRI on Friday. LifeVest has been approved, will be fitted on Friday. Further recommendations pending results of MRI. Update 10/08/2020: Patient reports I feel great today he states his breathing has improved. He does endorse continued LE edema and some abdominal fullness. He did have issues with IV potassium yesterday causing a fair amount of distress and pain. Labs reviewed. Potassium 4.2; magnesium 1.9; creatinine 1.20, GFR 63; H/H 13.5/43.5 Plan: Remains volume overloaded although symptomatically improved. Back on IV diuresis following contrast load from [facility] on Friday. No weights recorded for 2 days. Have requested daily standing weights please. Strict I/Os and fluid restriction. Serial labs. Have ordered albumin level. Continue GDMT including DAPT (Plavix/ASA), BB and statin added. Continue aldosterone antagonist. Allergy listed to TRELL-I. Could consider ARB in preparation for possible ARNi if BP allows. Cardiac MRI tomorrow. LifeVest before discharge. Will require repeat limited echo in 3 months, possible EP referral for consideration of ICD for primary prevention. Continue to follow. Subjective: Standing up in room, denies complaints of chest pain or SOB this morning. Denies dizziness or lightheadedness. Past Medical History: Diagnosis Date Cardiomyopathy (HCC) dilated Gout History reviewed. No pertinent surgical history. History reviewed. No pertinent family history. Social History Tobacco Use Smoking Status Never Smoker Smokeless Tobacco Never Used Allergies: Bee venom protein (honey bee), Carvedilol, Celexa [citalopram], Hydroxyzine, Lisinopril, and Morphine Current Facility-Administered Medications Medication Dose Route Frequency Provider Last Rate Last Admin acetaminophen (TYLENOL) tablet 650 mg 650 mg Oral Q4H PRN Trip Morris MD allopurinoL (ZYLOPRIM) tablet 100 mg 100 mg Oral Daily rTip Morris MD aspirin EC tablet 81 mg 81 mg Oral Daily Ignacio Olivo CNP 81 mg at 10/07/20 08 atorvastatin (LIPITOR) tablet 40 mg 40 mg Oral Nightly Ignacio Olivo CNP bisoprolol (ZEBETA) tablet 5 mg 5 mg Oral Daily Ignacio Olivo CNP 5 mg at 10/07/20 0801 clopidogreL (PLAVIX) tablet 75 mg 75 mg Oral Daily Dorian Barney MD 75 mg at 10/07/20 0801 enoxaparin (LOVENOX) syringe 40 mg 40 mg Subcutaneous Daily Trip Morris MD 40 mg at 10/07/20 0801 furosemide (LASIX) injection 20 mg 20 mg Intravenous BID Ignacio Olivo, LUBRICATION SERVICER 20 mg at 10/07/20 1801 nitroGLYCERIN (NITROSTAT) SL tablet 0.4 mg 0.4 mg Sublingual Q5 Min PRN Trip Morris MD ondansetron (ZOFRAN-ODT) disintegrating tablet 4 mg 4 mg Oral Q6H PRN Trip Morris MD spironolactone (ALDACTONE) tablet 25 mg 25 mg Oral Daily Trip Morris MD traZODone (DESYREL) tablet 50 mg 50 mg Oral Nightly PRN Trip Morris MD Review of Systems: Review of Systems Constitutional: Negative for chills and fever. HENT: Negative for congestion, nosebleeds and tinnitus. Eyes: Negative for blurred vision and double vision. Cardiovascular: Positive for leg swelling. Negative for chest pain, dyspnea on exertion, near-syncope and syncope. Respiratory: Positive for shortness of breath (improved ). Negative for cough. Endocrine: Negative for cold intolerance and heat intolerance. Hematologic/Lymphatic: Does not bruise/bleed easily. Skin: Negative for color change and rash. Musculoskeletal: Negative for muscle cramps and muscle weakness. Gastrointestinal: Positive for bloating. Negative for abdominal pain, change in bowel habit, nausea and vomiting. Genitourinary: Negative for dysuria. Neurological: Negative for dizziness and light-headedness. Psychiatric/Behavioral: Negative for altered mental status. Objective: Vital Signs: BP 112/80 Pulse 68 Temp 98.1 F (36.7 C) (Oral) Resp 16 Ht 5' 10 Wt 106.8 kg (235 lb 7.2 oz) SpO2 99% BMI 33.78 kg/m Physical Examination: Physical Exam Constitutional: General: He is not in acute distress. Appearance: He is well-developed. HENT: Head: Normocephalic and atraumatic. Eyes: General: No scleral icterus. Conjunctiva/sclera: Conjunctivae normal. Neck: Vascular: No JVD. Cardiovascular: Rate and Rhythm: Normal rate and regular rhythm. Pulses: Intact distal pulses. Heart sounds: Normal heart sounds. No friction rub. No gallop. Pulmonary: Effort: Pulmonary effort is normal. No respiratory distress. Breath sounds: Normal breath sounds. Abdominal: General: There is no distension. Palpations: Abdomen is soft. Musculoskeletal: General: Swelling (LE b/l ) present. Cervical back: Neck supple. Skin: General: Skin is warm and dry. Coloration: Skin is pale. Neurological: Mental Status: He is alert and oriented to person, place, and time. Psychiatric: Behavior: Behavior normal. Thought Content: Thought content normal. Judgment: Judgment normal. Telemetry: SR, no further episodes of NSVT this am or overnight. Echocardiogram complete w contrast Final Result by Zoila Marcial MD (09/26/2020 1612) Cardiac Catheterization Final Result by Dorian Barney MD (10/06/2020 1538) Lab Results Component Value Date WBC 6.89 10/08/2020 HGB 13.5 10/08/2020 HCT 43.6 10/08/2020 MCV 78.3 (L) 10/08/2020 PLT 295 10/08/2020 RBC 5.57 10/08/2020 Lab Results Component Value Date CREATININE 1.20 10/08/2020 BUN 33 (H) 10/08/2020 NA 134 (L) 10/08/2020 K 4.2 10/08/2020 CL 103 10/08/2020 BICARB 23 10/08/2020 Lab Results Component Value Date NA 134 (L) 10/08/2020 K 4.2 10/08/2020 CL 103 10/08/2020 Lab Results Component Value Date TROPONINI <15 10/02/2020 EKG 12-lead Final Result by Interface, Lab Results In [place] Pyramis (10/02/2020 1131) Sinus tachycardia Possible Left atrial enlargement Low voltage QRS Borderline ECG ECG Cart Interpretation see physician note for interpretation. Confirmed by Claudia Aguilar ([id number]) on 10/02/2020 11:31:17 AM Ignacio Olivo CNP [facility] Medicine Inpatient Follow-up 10/07/2020 Veronica Stahl MD [facility] Patient: Scott Arevalo Date of : 1955 (64 y.o.) PCP: Cristofer Zarate MD ASSESSMENT/PLAN: Scott Arevalo 64 y.o. male with significant history of decompensated with severe biventricular dysfunction and diastolic dysfunction, EF 15% with 3+ MR, pulmonary hypertension who presented to the hospital with worsening shortness of breath and fluid overload. Patient is admitted for acute CHF exacerbation as well as cardiology consultation. Principal Problem: Acute left-sided CHF (congestive heart failure) (HCC) PLAN: Acute CHF exacerbation Dilated cardiomyopathy: Severe mitral regurgitation: Continue IV Lasix 20 bidhe is net - 5L. [facility] 10/06 showed severe pulmonary HTN, severe MR and had a ABEBE to mid LAD Continue GDMT including DAPT (ASA/Plavix), bisoprolol, Aldactone, will resume IV Lasix. Continue to monitor renal function. We will plan for cardiac MRI on Friday. LifeVest has been approved, will be fitted on Friday. Mild PRUDENCIO: Likely cardiorenal- resolved DVT prophylaxis: Lovenox SUBJECTIVE: Patient is alert and oriented, is on room air. Feeling much improved since diuresis. Patient is able to lay flat. All other systems reviewed and negative other than noted above. OBJECTIVE: Physical Examination: BP 93/69 Pulse 68 Temp 97.5 F (36.4 C) (Oral) Resp 16 Ht 5' 10 Wt 107 kg (235 lb 14.3 oz) Comment: standing SpO2 97% BMI 33.85 kg/m General Appearance: Alert, well appearing, and in no acute distress. HEENT: Head - Normocephalic, atraumatic. Eyes - PRO bilaterally and EOMI. Ears - normal external appearance, hearing intact. Nose - normal, no erythema. Throat - mucous membranes moist, pharynx without lesions. Neck: Supple, trachea midline. Cardiovascular: S1, S2 normal. No murmurs, rubs, clicks or gallops appreciated. No pedal edema. Respiratory: Lungs clear to auscultation, no wheezes, rales or rhonchi heard. Abdomen: Soft, non-tender, normal bowel sounds, non-distended, no masses or organomegaly appreciated. Neurological: Grossly normal motor and sensory exam. No focal deficits. Musculoskeletal: No joint tenderness, deformity or swelling. Skin: Normal coloration and turgor. No rashes. Psych: Alert, oriented x 3. Normal mood and affect. CURRENT MEDICATIONS: allopurinoL 100 mg Oral Daily aspirin 81 mg Oral Daily bisoprolol 5 mg Oral Daily clopidogreL 75 mg Oral Daily enoxaparin (LOVENOX) injection 40 mg Subcutaneous Daily furosemide 20 mg Intravenous BID spironolactone 25 mg Oral Daily Results/Medications Reviewed 10/07/20 12:41 PM: Results from last 7 days Lab Units 10/07/20 0354 10/06/20 0705 10/05/20 0538 SODIUM mmol/L 135 136 137 POTASSIUM mmol/L 3.9 4.2 3.9 CHLORIDE mmol/L 102 100 101 BUN mg/dL 32* 28* 26* CREATININE mg/dL 1.26 1.42* 1.24 GLUCOSE mg/dL 102* 82 81 CALCIUM mg/dL 8.8 8.6 8.8 Results from last 7 days Lab Units 10/07/20 0354 10/06/20 0705 10/05/20 0538 WBC K/mcL 6.21 6.85 6.31 HGB g/dL 13.9 13.9 14.3 HCT % 44.6 45.9 46.7 PLT K/mcL 328 312 313 Results from last 7 days Lab Units 10/02/20 1046 TROPONIN I ng/L <15 Results from last 7 days Lab Units 10/02/20 1046 INR 1.4* Results from last 7 days Lab Units 10/03/20 0659 ALK PHOS U/L 237* BILIRUBIN TOTAL mg/dL 2.0* BILIRUBIN DIRECT mg/dL 1.1* TOTAL PROTEIN g/dL 7.0 ALTR U/L 20 AST U/L 24 CULTURES: Reviewed 12:41 PM IMAGING: Reviewed 12:41 PM General Cardiology Inpatient Follow-up Heart & Vascular [facility] 10/07/2020 Ignacio Olivo CNP [facility] Patient: Scott Arevalo Date of : 1955 (64 y.o.) Referring Provider: No ref. provider found PCP: Cristofer Zarate MD Assessment/Plan: * Acute left-sided CHF (congestive heart failure) (HCC) Assessment & Plan [facility] 10/06/2020 showed Two-vessel severe calcific obstructive CAD. iFR of mid LAD 0.86. Subsequently underwent successful catheter-based intervention with 3.0 x 32 mm Synergy ABEBE to mid LAD, achieving residual stenosis of 0% RONALD-3 flow post procedure. Elevated left heart filling pressures. Elevated right heart filling pressures. Severe pulmonary hypertension. Normal cardiac output and cardiac index. Labs reviewed. Potassium 3.9; magnesium 1.9; creatinine 1.26, GFR 59; H/H 13.9/44.6 Telemetry reviewed. SR with episodes of NSVT. Plan: Continue GDMT including DAPT (ASA/Plavix), bisoprolol, Aldactone, will resume IV Lasix. Continue to monitor renal function. We will plan for cardiac MRI on Friday. LifeVest has been approved, will be fitted on Friday. Further recommendations pending results of MRI. Subjective: Sitting up in bed, complains of some nausea at present. Past Medical History: Diagnosis Date Cardiomyopathy (HCC) dilated Gout History reviewed. No pertinent surgical history. History reviewed. No pertinent family history. Social History Tobacco Use Smoking Status Never Smoker Smokeless Tobacco Never Used Allergies: Bee venom protein (honey bee), Carvedilol, Celexa [citalopram], Hydroxyzine, Lisinopril, and Morphine Current Facility-Administered Medications Medication Dose Route Frequency Provider Last Rate Last Admin acetaminophen (TYLENOL) tablet 650 mg 650 mg Oral Q4H PRN Trip Morris MD allopurinoL (ZYLOPRIM) tablet 100 mg 100 mg Oral Daily Trip Morris MD aspirin EC tablet 81 mg 81 mg Oral Daily Ignacio Olivo CNP 81 mg at 10/07/20 08 bisoprolol (ZEBETA) tablet 5 mg 5 mg Oral Daily Ignacio Olivo CNP 5 mg at 10/07/20800 clopidogreL (PLAVIX) tablet 75 mg 75 mg Oral Daily Dorian Barney MD 75 mg at 10/07/20800 enoxaparin (LOVENOX) syringe 40 mg 40 mg Subcutaneous Daily Trip Morris MD 40 mg at 10/07/20800 furosemide (LASIX) injection 20 mg 20 mg Intravenous BID Ignacio Olivo CNP nitroGLYCERIN (NITROSTAT) SL tablet 0.4 mg 0.4 mg Sublingual Q5 Min PRN Trip Morris MD ondansetron (ZOFRAN-ODT) disintegrating tablet 4 mg 4 mg Oral Q6H PRN Trip Morris MD potassium chloride 20 mEq in 100 mL IVPB 20 mEq Intravenous Once Veronica Stahl MD 50 mL/hr at 10/07/20 1005 20 mEq at 10/07/20 1005 spironolactone (ALDACTONE) tablet 25 mg 25 mg Oral Daily Trip Morris MD traZODone (DESYREL) tablet 50 mg 50 mg Oral Nightly PRN Trip Morris MD Review of Systems: Review of Systems Constitutional: Negative for chills and fever. HENT: Negative for congestion, nosebleeds and tinnitus. Eyes: Negative for blurred vision and double vision. Cardiovascular: Negative for chest pain, dyspnea on exertion, near-syncope and syncope. Respiratory: Negative for cough and shortness of breath. Endocrine: Negative for cold intolerance and heat intolerance. Hematologic/Lymphatic: Does not bruise/bleed easily. Skin: Negative for color change and rash. Musculoskeletal: Negative for muscle cramps and muscle weakness. Gastrointestinal: Positive for nausea. Negative for abdominal pain, change in bowel habit and vomiting. Genitourinary: Negative for dysuria. Neurological: Negative for dizziness and light-headedness. Psychiatric/Behavioral: Negative for altered mental status. Objective: Vital Signs: BP 93/69 Pulse 68 Temp 97.5 F (36.4 C) (Oral) Resp 16 Ht 5' 10 Wt 107 kg (235 lb 14.3 oz) Comment: standing SpO2 97% BMI 33.85 kg/m Physical Examination: Physical Exam Constitutional: General: He is not in acute distress. Appearance: He is well-developed. HENT: Head: Normocephalic and atraumatic. Eyes: General: No scleral icterus. Conjunctiva/sclera: Conjunctivae normal. Neck: Vascular: No JVD. Cardiovascular: Rate and Rhythm: Normal rate and regular rhythm. Pulses: Intact distal pulses. Heart sounds: Murmur heard. Blowing holosystolic murmur is present. No friction rub. No gallop. Pulmonary: Effort: Pulmonary effort is normal. No respiratory distress. Breath sounds: Examination of the right-lower field reveals rales. Examination of the left-lower field reveals rales. Rales present. Abdominal: General: There is no distension. Palpations: Abdomen is soft. Musculoskeletal: General: Swelling (b/l LE ) present. Cervical back: Neck supple. Skin: General: Skin is warm and dry. Neurological: Mental Status: He is alert and oriented to person, place, and time. Psychiatric: Behavior: Behavior normal. Thought Content: Thought content normal. Judgment: Judgment normal. Telemetry: SR with episodes of NSVT Echocardiogram complete w contrast Final Result by Zoila Marcial MD (09/26/2020 1612) Cardiac Catheterization Final Result by Dorian Barney MD (10/06/2020 1538) Lab Results Component Value Date WBC 6.21 10/07/2020 HGB 13.9 10/07/2020 HCT 44.6 10/07/2020 MCV 78.2 (L) 10/07/2020 PLT 328 10/07/2020 RBC 5.70 10/07/2020 Lab Results Component Value Date CREATININE 1.26 10/07/2020 BUN 32 (H) 10/07/2020 NA 135 10/07/2020 K 3.9 10/07/2020 CL 102 10/07/2020 BICARB 26 10/07/2020 Lab Results Component Value Date NA 135 10/07/2020 K 3.9 10/07/2020 CL 102 10/07/2020 Lab Results Component Value Date TROPONINI <15 10/02/2020 EKG 12-lead Final Result by Interface, Lab Results In [place] [facility] (10/02/2020 1131) Sinus tachycardia Possible Left atrial enlargement Low voltage QRS Borderline ECG ECG Cart Interpretation see physician note for interpretation. Confirmed by Claudia Aguilar ([id number]) on 10/02/2020 11:31:17 AM Ignacio Olivo CNP [facility] Medicine Inpatient Follow-up 10/06/2020 Zoe Vanegas MD [facility] Patient: Scott Arevalo Date of : 1955 (64 y.o.) PCP: Cristofer Zarate MD ASSESSMENT/PLAN: Scott Arevalo 64 y.o. male with significant history of decompensated with severe biventricular dysfunction and diastolic dysfunction, EF 15% with 3+ MR, pulmonary hypertension who presented to the hospital with worsening shortness of breath and fluid overload. Patient is admitted for acute CHF exacerbation as well as cardiology consultation. Principal Problem: Acute left-sided CHF (congestive heart failure) ([facility]) PLAN: Acute CHF exacerbation Dilated cardiomyopathy: Severe mitral regurgitation: Continue IV Lasix, patient is diuresing well. Heart cath today per cardiology May also need FRED to closely monitor for mitral regurgitation. Appreciate cardiology recommendations. Will need LifeVest on discharge. Mild PRUDENCIO: Likely cardiorenal Hold lasix given his heart cath today DVT prophylaxis: Lovenox SUBJECTIVE: Patient is alert and oriented, is on room air. Feeling much improved since diuresis. Patient is able to lay flat. All other systems reviewed and negative other than noted above. OBJECTIVE: Physical Examination: BP 113/82 Pulse 85 Temp 97.4 F (36.3 C) (Oral) Resp 14 Ht 5' 10 Wt 100.4 kg (221 lb 5.5 oz) SpO2 96% BMI 31.76 kg/m General Appearance: Alert, well appearing, and in no acute distress. HEENT: Head - Normocephalic, atraumatic. Eyes - PRO bilaterally and EOMI. Ears - normal external appearance, hearing intact. Nose - normal, no erythema. Throat - mucous membranes moist, pharynx without lesions. Neck: Supple, trachea midline. Cardiovascular: S1, S2 normal. No murmurs, rubs, clicks or gallops appreciated. No pedal edema. Respiratory: Lungs clear to auscultation, no wheezes, rales or rhonchi heard. Abdomen: Soft, non-tender, normal bowel sounds, non-distended, no masses or organomegaly appreciated. Neurological: Grossly normal motor and sensory exam. No focal deficits. Musculoskeletal: No joint tenderness, deformity or swelling. Skin: Normal coloration and turgor. No rashes. Psych: Alert, oriented x 3. Normal mood and affect. CURRENT MEDICATIONS: aspirin 81 mg Oral Daily enoxaparin (LOVENOX) injection 40 mg Subcutaneous Daily metoprolol succinate 25 mg Oral BID Results/Medications Reviewed 10/06/20 1:55 PM: Results from last 7 days Lab Units 10/06/20 0705 10/05/20 0538 10/04/20 0417 SODIUM mmol/L 136 137 135 POTASSIUM mmol/L 4.2 3.9 4.2 CHLORIDE mmol/L 100 101 101 BUN mg/dL 28* 26* 23 CREATININE mg/dL 1.42* 1.24 1.21 GLUCOSE mg/dL 82 81 84 CALCIUM mg/dL 8.6 8.8 8.5 Results from last 7 days Lab Units 10/06/20 0705 10/05/20 0538 10/04/20 0417 WBC K/mcL 6.85 6.31 7.06 HGB g/dL 13.9 14.3 14.0 HCT % 45.9 46.7 45.5 PLT K/mcL 312 313 342 Results from last 7 days Lab Units 10/02/20 1046 TROPONIN I ng/L <15 Results from last 7 days Lab Units 10/02/20 1046 INR 1.4* Results from last 7 days Lab Units 10/03/20 0659 ALK PHOS U/L 237* BILIRUBIN TOTAL mg/dL 2.0* BILIRUBIN DIRECT mg/dL 1.1* TOTAL PROTEIN g/dL 7.0 ALTR U/L 20 AST U/L 24 CULTURES: Reviewed 1:55 PM IMAGING: Reviewed 1:55 PM [facility] Medicine Inpatient Follow-up 10/05/2020 Todd Ross MD [facility] Patient: Scott Arevalo Date of : 1955 (64 y.o.) PCP: Cristofer Zarate MD ASSESSMENT/PLAN: Scott Arevalo 64 y.o. male with significant history of decompensated with severe biventricular dysfunction and diastolic dysfunction, EF 15% with 3+ MR, pulmonary hypertension who presented to the hospital with worsening shortness of breath and fluid overload. Patient is admitted for acute CHF exacerbation as well as cardiology consultation. Principal Problem: Acute left-sided CHF (congestive heart failure) (HCC) PLAN: Acute CHF exacerbation Dilated cardiomyopathy: Severe mitral regurgitation: Continue IV Lasix, patient is diuresing well. Evaluated by cardiology, patient may need left and right heart cath before discharge. May also need FRED to closely monitor for mitral regurgitation. Appreciate cardiology recommendations. Will need LifeVest on discharge. Mild PRUDENCIO: Likely due to fluid overload. Improving with diuresis. DVT prophylaxis: Lovenox SUBJECTIVE: Patient is alert and oriented, is on room air. Feeling much improved since diuresis. Patient is able to lay flat. Discussed with cardiology, will continue diuresis. All other systems reviewed and negative other than noted above. OBJECTIVE: Physical Examination: BP 112/82 Pulse 85 Temp 97.8 F (36.6 C) (Oral) Resp 16 Ht 5' 10 Wt 101.3 kg (223 lb 5.2 oz) SpO2 98% BMI 32.04 kg/m General Appearance: Alert, well appearing, and in no acute distress. HEENT: Head - Normocephalic, atraumatic. Eyes - PRO bilaterally and EOMI. Ears - normal external appearance, hearing intact. Nose - normal, no erythema. Throat - mucous membranes moist, pharynx without lesions. Neck: Supple, trachea midline. Cardiovascular: S1, S2 normal. No murmurs, rubs, clicks or gallops appreciated. No pedal edema. Respiratory: Lungs clear to auscultation, no wheezes, rales or rhonchi heard. Abdomen: Soft, non-tender, normal bowel sounds, non-distended, no masses or organomegaly appreciated. Neurological: Grossly normal motor and sensory exam. No focal deficits. Musculoskeletal: No joint tenderness, deformity or swelling. Skin: Normal coloration and turgor. No rashes. Psych: Alert, oriented x 3. Normal mood and affect. CURRENT MEDICATIONS: enoxaparin (LOVENOX) injection 40 mg Subcutaneous Daily furosemide 20 mg Intravenous Q8H [facility] losartan 25 mg Oral Daily with lunch metoprolol succinate 12.5 mg Oral BID Results/Medications Reviewed 10/05/20 10:47 AM: Results from last 7 days Lab Units 10/05/20 0538 10/04/20 0417 10/03/20 0659 SODIUM mmol/L 137 135 133* POTASSIUM mmol/L 3.9 4.2 3.8 CHLORIDE mmol/L 101 101 99 BUN mg/dL 26* 23 26* CREATININE mg/dL 1.24 1.21 1.22 GLUCOSE mg/dL 81 84 84 CALCIUM mg/dL 8.8 8.5 8.8 Results from last 7 days Lab Units 10/05/20 0538 10/04/20 0417 10/03/20 0659 WBC K/mcL 6.31 7.06 7.45 HGB g/dL 14.3 14.0 14.5 HCT % 46.7 45.5 47.2 PLT K/mcL 313 342 365 Results from last 7 days Lab Units 10/02/20 1046 TROPONIN I ng/L <15 Results from last 7 days Lab Units 10/02/20 1046 INR 1.4* Results from last 7 days Lab Units 10/03/20 0659 ALK PHOS U/L 237* BILIRUBIN TOTAL mg/dL 2.0* BILIRUBIN DIRECT mg/dL 1.1* TOTAL PROTEIN g/dL 7.0 ALTR U/L 20 AST U/L 24 CULTURES: Reviewed 10:47 AM IMAGING: Reviewed 10:47 AM General Cardiology Inpatient Follow-up Heart & Vascular [facility] 10/05/2020 Amberly Lira [facility] Patient: Scott Arevalo Date of : 1955 (64 y.o.) Referring Provider: No ref. provider found PCP: Cristofer Zarate MD Assessment/Plan: Mitral regurgitation - 3+ centrally directed mitral valve regurgitation. - Patient is scheduled to see structural heart. - Will need a FRED once diuresed to further assess the MV. HFrEF - EF os 15% per echo on 09/26/2020. - H/o allergic reaction to carvedilol w/ lips swelling. - Cough w/ lisinopril. - Severe RHF. - Strict I&O and daily weight. - Patient is negative 3699 today. Clinic status matches this volume loss. - 2G sodium diet and 1200 ml fluid restriction. - Continue w/ diuresis. Albumin 2.9. Alk phos 237. - Lasix 20 mg IV TID is working well for him thus far. Renal function stable. ~ one liter per day. We have 3 days until cath. - Daily labs. - Maintain potassium level between 4.0 and 4.8 and magnesium >2. - Echo as noted. - Patient will need the HF Clinic at the time of discharge. - Increased Toprol XL 25 mg BID for PVC, couplets, triplet and short runs on telemetry. (electrolytes stable) - HF failure teaching continues. - Patent will need a LifeVest at the time of discharge. (requested) - Plan for Rt and Lt heart cath on Friday. History of Present Illness: Patient is a pleasant 64 yo M w/ a h/o CM and gout who presented to the ED on 10/02/2020 w/ a c/o SOB and lower extremities. Patient's history dates back to April 2020 when he was in [place] and acquired a parasite and bacterial infection which was treated with antibiotics.. After that he was noted to have a low ejection fraction and was treated with diuretics (lasix). When there was no improvement in in his EF he was set up to see Dr. Blunt in our practice and was awaiting his outpatient appointment. In the interim he has developed volume overload and he and believe he has gained approximately 8 pounds. He also tells me that in 2009 he had an E. Coli infection and similarly had some water weight but it all resolved within a few months Troponin negative. BNP 7482 EKG 10/02/2020: Sinus tachycardia. Possible Left atrial enlargement Chest: 10/02/2020: 1. Borderline cardiac enlargement. 2. Prominence of the bronchovascular markings along with small bilateral effusions. Findings could represent early failure, bronchitis, or interstitial pneumonitis. Clinical correlation is suggested. Echo on 09/26/2020 1. Left ventricular chamber dimension is severely enlarged. 2. Global hypokinesis of the left ventricle. 3. Left ventricular systolic function is severely reduced with an ejection fraction by Biplane Method of Discs of 15 %. 4. The left ventricular diastolic function is grade III diastolic dysfunction, consistent with markedly elevated left atrial pressure (restrictive LV filling). 5. Right ventricular chamber dimension is severely enlarged. 6. Right ventricular systolic function is severly reduced. 7. There is pulmonary hypertension, estimated right ventricle systolic pressure is 59 mmHg. 8. There is 3+ centrally directed mitral valve regurgitation. Risk Factors: HTN: Denies HPL: Denies BMI: 34.44 DM: Denies Smoking: Never Alcohol: No Recreational Drugs: No Sleep apnea: He does endorse snoring. Family Hx Father: Father had PA at 69 and at 79 Mother: Mother at 79 - some heart issues. Subjective: Patient is continues to report he feels improvement. Thighs are softer and legs less heavy. Telemetry: SR w/ Ectopy. PVC, couplets, triplets and short run. Allergies: Bee venom protein (honey bee), Carvedilol, Celexa [citalopram], Hydroxyzine, Lisinopril, and Morphine Review of Systems: The following system(s) were reviewed and negative. Pertinent positive and negative findings are noted in the HPI. [x] Const [x] Eyes [x] ENT [x] Resp [] CV [x] GI [x] [x] Neuro [x] Musc [x] Skin [x] Psych [x] Endo [x] Allergy [x] Heme/Lymph Vital Signs: BP 112/82 Pulse 85 Temp 97.8 F (36.6 C) (Oral) Resp 16 Ht 5' 10 Wt 101.3 kg (223 lb 5.2 oz) SpO2 98% BMI 32.04 kg/m Physical Examination: Physical Exam HENT: Head: Normocephalic. Nose: Nose normal. Mouth/Throat: Mouth: Mucous membranes are moist. Eyes: Pupils: Pupils are equal, round, and reactive to light. Cardiovascular: Rate and Rhythm: Normal rate and regular rhythm. Pulmonary: Effort: Pulmonary effort is normal. Breath sounds: Normal breath sounds. Abdominal: Palpations: Abdomen is soft. Musculoskeletal: General: Swelling (3+ lower leg and feet. Thighs much softer. ) present. Cervical back: Normal range of motion. Skin: General: Skin is warm and dry. Neurological: Mental Status: He is alert and oriented to person, place, and time. Psychiatric: Thought Content: Thought content normal. Lab Results Component Value Date CREATININE 1.24 10/05/2020 BUN 26 (H) 10/05/2020 NA 137 10/05/2020 K 3.9 10/05/2020 CL 101 10/05/2020 BICARB 28 10/05/2020 Lab Results Component Value Date WBC 6.31 10/05/2020 HGB 14.3 10/05/2020 HCT 46.7 10/05/2020 MCV 78.6 (L) 10/05/2020 PLT 313 10/05/2020 RBC 5.94 (H) 10/05/2020 Lab Results Component Value Date TROPONINI <15 10/02/2020 Amberly Lira CNP Heart Failure Navigator chart review Attending Communication: HFrEF EF: 15% RVSP 59 LOS: 2d 4h Last CHF DC: none here Pdx: acute systolic and diastolic CHF Consults- Cardiology: Yes Inpatient Cardiac Rehab: Yes Ambulatory Heart Failure Clinic: Referral placed per navigatoar Guideline Directed Medical Therapy Biomarkers date: 10/02 Trop I <15 NT Pro BNP 7,482 Aldosterone antagonists: spironolactone on hold eGFR: 55 HTN goal <130/80: Yes ARB: none Anemia, HF and iron deficiency: N/A Sleep Disorder Breathing: No BMI 34 CPAP- STOP BANG- 4 intermediate risk Orders- Daily weight: Yes Ambulate: Yes CHF: Yes Primary Care Communication: Follow up: HF Navigator call list. Post DC appointments: Sammie Shen RN, BSN Insulation Extruder Operator HF Navigator Quality and Patient Safety [facility] [phone] cell [phone] office General Cardiology Inpatient Follow-up Heart & Vascular [facility] 10/04/2020 Amberly Lira CNP [facility] Patient: Scott Arevalo Date of : 1955 (64 y.o.) Referring Provider: No ref. provider found PCP: Cristofer Zarate MD Assessment/Plan: Mitral regurgitation - 3+ centrally directed mitral valve regurgitation. - Patient is scheduled to see structural heart. - Will need a FRED once diuresed to further assess the MV. HFrEF - EF os 15% per echo on 09/26/2020. - H/o allergic reaction to carvedilol w/ lips swelling. - Cough w/ lisinopril. - Severe RHF. - Strict I&O and daily weight. - Patient is negative 2884 today. Clinic status matches this volume loss. - 2G sodium diet and 1200 ml fluid restriction. - Continue w/ diuresis. Albumin 2.9. Alk phos 237. - Lasix 20 mg IV TID is working well for him thus far. - Daily labs. - Maintain potassium level between 4.0 and 4.8 and magnesium >2. - Echo as noted. - Patient will need a Rt and Lt heart cath once diuresed. - Patient will need the HF Clinic at the time of discharge. - IncreasedToprol XL 12.5 mg to BID for PVC, couplets and triplet on telemetry. (electrolytes stable) - HF failure teaching. - Patent will need a LifeVest at the time of discharge. History of Present Illness: Patient is a pleasant 64 yo M w/ a h/o CM and gout who presented to the ED on 10/02/2020 w/ a c/o SOB and lower extremities. Patient's history dates back to April 2020 when he was in [place] and acquired a parasite and bacterial infection which was treated with antibiotics.. After that he was noted to have a low ejection fraction and was treated with diuretics (lasix). When there was no improvement in in his EF he was set up to see Dr. Blunt in our practice and was awaiting his outpatient appointment. In the interim he has developed volume overload and he and believe he has gained approximately 8 pounds. He also tells me that in 2009 he had an E. Coli infection and similarly had some water weight but it all resolved within a few months Troponin negative. BNP 7482 EKG 10/02/2020: Sinus tachycardia. Possible Left atrial enlargement Chest: 10/02/2020: 1. Borderline cardiac enlargement. 2. Prominence of the bronchovascular markings along with small bilateral effusions. Findings could represent early failure, bronchitis, or interstitial pneumonitis. Clinical correlation is suggested. Echo on 09/26/2020 1. Left ventricular chamber dimension is severely enlarged. 2. Global hypokinesis of the left ventricle. 3. Left ventricular systolic function is severely reduced with an ejection fraction by Biplane Method of Discs of 15 %. 4. The left ventricular diastolic function is grade III diastolic dysfunction, consistent with markedly elevated left atrial pressure (restrictive LV filling). 5. Right ventricular chamber dimension is severely enlarged. 6. Right ventricular systolic function is severly reduced. 7. There is pulmonary hypertension, estimated right ventricle systolic pressure is 59 mmHg. 8. There is 3+ centrally directed mitral valve regurgitation. Risk Factors: HTN: Denies HPL: Denies BMI: 34.44 DM: Denies Smoking: Never Alcohol: No Recreational Drugs: No Sleep apnea: He does endorse snoring. Family Hx Father: Father had PA at 69 and at 79 Mother: Mother at 79 - some heart issues. Subjective: Patient is in good spirits and reports feeling much better. He understands this is a process. Spoke w/ patient about HF, the HF clinic and the purpose of a LifeVest. present for discussions. Telemetry: SR w/ PVC, couplets and short 3-4 beat runs. Allergies: Bee venom protein (honey bee), Carvedilol, Celexa [citalopram], Hydroxyzine, Lisinopril, and Morphine Review of Systems: The following system(s) were reviewed and negative. Pertinent positive and negative findings are noted in the HPI. [x] Const [x] Eyes [x] ENT [x] Resp [] CV [x] GI [x] [x] Neuro [x] Musc [x] Skin [x] Psych [x] Endo [x] Allergy [x] Heme/Lymph Vital Signs: BP 118/85 Pulse 93 Temp 97.5 F (36.4 C) (Oral) Resp 16 Ht 5' 10 Wt 109.2 kg (240 lb 11.2 oz) SpO2 97% BMI 34.54 kg/m Physical Examination: Physical Exam HENT: Head: Normocephalic. Nose: Nose normal. Eyes: Pupils: Pupils are equal, round, and reactive to light. Cardiovascular: Rate and Rhythm: Normal rate and regular rhythm. Heart sounds: Normal heart sounds. Comments: + for ectopy. Pulmonary: Effort: Pulmonary effort is normal. Breath sounds: Normal breath sounds. Abdominal: Palpations: Abdomen is soft. Musculoskeletal: General: Swelling (3+ pitting yet improved. Thighs softer) present. Cervical back: Normal range of motion. Skin: General: Skin is warm and dry. Neurological: Mental Status: He is alert and oriented to person, place, and time. Psychiatric: Thought Content: Thought content normal. Lab Results Component Value Date CREATININE 1.21 10/04/2020 BUN 23 10/04/2020 NA 135 10/04/2020 K 4.2 10/04/2020 CL 101 10/04/2020 BICARB 26 10/04/2020 Lab Results Component Value Date WBC 7.06 10/04/2020 HGB 14.0 10/04/2020 HCT 45.5 10/04/2020 MCV 78.9 (L) 10/04/2020 PLT 342 10/04/2020 RBC 5.77 10/04/2020 Lab Results Component Value Date TROPONINI <15 10/02/2020 Amberly Lira CNP [facility] Medicine Inpatient Follow-up 10/04/2020 Todd Ross MD [facility] Patient: Scott Arevalo Date of : 1955 (64 y.o.) PCP: Cristofer Zarate MD ASSESSMENT/PLAN: Scott Arevalo 64 y.o. male with significant history of decompensated with severe biventricular dysfunction and diastolic dysfunction, EF 15% with 3+ MR, pulmonary hypertension who presented to the hospital with worsening shortness of breath and fluid overload. Patient is admitted for acute CHF exacerbation as well as cardiology consultation. Principal Problem: Acute left-sided CHF (congestive heart failure) (HCC) PLAN: Acute CHF exacerbation Dilated cardiomyopathy: Severe mitral regurgitation: Continue IV Lasix, patient is diuresing well. Evaluated by cardiology, patient may need left and right heart cath before discharge. May also need FRED to closely monitor for mitral regurgitation. Appreciate cardiology recommendations. Mild PRUDENCIO: Likely due to fluid overload. Improving with diuresis. DVT prophylaxis: Lovenox SUBJECTIVE: Patient is alert and oriented, is on room air. Feeling much improved since diuresis. Patient is able to lay flat. Discussed with cardiology, will continue diuresis. All other systems reviewed and negative other than noted above. OBJECTIVE: Physical Examination: BP 118/85 Pulse 93 Temp 97.5 F (36.4 C) (Oral) Resp 16 Ht 5' 10 Wt 109.2 kg (240 lb 11.2 oz) SpO2 97% BMI 34.54 kg/m General Appearance: Alert, well appearing, and in no acute distress. HEENT: Head - Normocephalic, atraumatic. Eyes - PRO bilaterally and EOMI. Ears - normal external appearance, hearing intact. Nose - normal, no erythema. Throat - mucous membranes moist, pharynx without lesions. Neck: Supple, trachea midline. Cardiovascular: S1, S2 normal. No murmurs, rubs, clicks or gallops appreciated. No pedal edema. Respiratory: Lungs clear to auscultation, no wheezes, rales or rhonchi heard. Abdomen: Soft, non-tender, normal bowel sounds, non-distended, no masses or organomegaly appreciated. Neurological: Grossly normal motor and sensory exam. No focal deficits. Musculoskeletal: No joint tenderness, deformity or swelling. Skin: Normal coloration and turgor. No rashes. Psych: Alert, oriented x 3. Normal mood and affect. CURRENT MEDICATIONS: enoxaparin (LOVENOX) injection 40 mg Subcutaneous Daily furosemide 20 mg Intravenous Q8H TONY metoprolol succinate 12.5 mg Oral Daily Results/Medications Reviewed 10/04/20 11:01 AM: Results from last 7 days Lab Units 10/04/2041610/03/20 0659 10/02/20 1046 SODIUM mmol/L 135 133* 130* POTASSIUM mmol/L 4.2 3.8 4.4 CHLORIDE mmol/L 101 99 96* BUN mg/dL 23 26* 23 CREATININE mg/dL 1.21 1.22 1.33* GLUCOSE mg/dL 84 84 86 CALCIUM mg/dL 8.5 8.8 -- Results from last 7 days Lab Units 10/04/2041610/03/20 0659 10/02/20 1046 WBC K/mcL 7.06 7.45 8.07 HGB g/dL 14.0 14.5 14.8 HCT % 45.5 47.2 48.1 PLT K/mcL 342 365 379 Results from last 7 days Lab Units 10/02/20 1046 TROPONIN I ng/L <15 Results from last 7 days Lab Units 10/02/20 1046 INR 1.4* Results from last 7 days Lab Units 10/03/20 0659 ALK PHOS U/L 237* BILIRUBIN TOTAL mg/dL 2.0* BILIRUBIN DIRECT mg/dL 1.1* TOTAL PROTEIN g/dL 7.0 ALTR U/L 20 AST U/L 24 CULTURES: Reviewed 11:01 AM IMAGING: Reviewed 11:01 AM General Cardiology Inpatient Follow-up Heart & Vascular [facility] 10/03/2020 Amberly Lira CNP [facility] Patient: Scott Arevalo Date of : 1955 (64 y.o.) Referring Provider: No ref. provider found PCP: Cristofer Zarate MD Assessment/Plan: Mitral regurgitation - 3+ centrally directed mitral valve regurgitation. - Patient is scheduled to see structural heart. - Will need a FRED once diuesed. HFrEF - EF os 15% per echo on 09/26/2020. - H/o allergic reaction to carvedilol w/ lips swelling. - Cough w/ lisinopril. - Severe RHF. - Strict I&O and daily weight. - Patient is negative 1300 today. - 2G sodium diet and 1200 ml fluid restriction. - Daily labs. - Maintain potassium level between 4.0 and 4.8 and magnesium >2. - Magnesium 2G IV x2 and Potassium 40 mEq po today. - Echo as noted. - Patient will need a Rt and Lt heart cath once diuresed. - Patient will need the HF Clinic at the time of discharge. - Continue w/ diuresis. Albumin 2.9. Alk phos 237. - Lasix 20 mg IV TID is working well for him thus far. . - Will start Toprol XL 12.5 po QD for PVC, couplets and triplet on telemetry. K 3.8 (treated) as noted. - HF failure teaching. - Patent will need a LifeVest at the time of discharge. History of Present Illness: Patient is a pleasant 64 yo M w/ a h/o CM and gout who presented to the ED on 10/02/2020 w/ a c/o SOB and lower extremities. Patient's history dates back to April 2020 when he was in [place] and acquired a parasite and bacterial infection which was treated with antibiotics.. After that he was noted to have a low ejection fraction and was treated with diuretics (lasix). When there was no improvement in in his EF he was set up to see Dr. Blunt in our practice and was awaiting his outpatient appointment. In the interim he has developed volume overload and he and believe he has gained approximately 8 pounds. He also tells me that in 2009 he had an E. Coli infection and similarly had some water weight but it all resolved within a few months Troponin negative. BNP 7482 EKG 10/02/2020: Sinus tachycardia. Possible Left atrial enlargement Chest: 10/02/2020: 1. Borderline cardiac enlargement. 2. Prominence of the bronchovascular markings along with small bilateral effusions. Findings could represent early failure, bronchitis, or interstitial pneumonitis. Clinical correlation is suggested. Echo on 09/26/2020 1. Left ventricular chamber dimension is severely enlarged. 2. Global hypokinesis of the left ventricle. 3. Left ventricular systolic function is severely reduced with an ejection fraction by Biplane Method of Discs of 15 %. 4. The left ventricular diastolic function is grade III diastolic dysfunction, consistent with markedly elevated left atrial pressure (restrictive LV filling). 5. Right ventricular chamber dimension is severely enlarged. 6. Right ventricular systolic function is severly reduced. 7. There is pulmonary hypertension, estimated right ventricle systolic pressure is 59 mmHg. 8. There is 3+ centrally directed mitral valve regurgitation. Risk Factors: HTN: Denies HPL: Denies BMI: 34.44 DM: Denies Smoking: Never Alcohol: No Recreational Drugs: No Sleep apnea: He does endorse snoring. Family Hx Father: Father had PA at 69 and at 79 Mother: Mother at 79 - some heart issues. Subjective: Patient reports feeling much better today and his stomach is now softer. Scrotum is down in swelling. He understands that we still have a way to go on diuresis. Telemetry: SR 103. Allergies: Bee venom protein (honey bee), Carvedilol, Celexa [citalopram], Hydroxyzine, Lisinopril, and Morphine Review of Systems: The following system(s) were reviewed and negative. Pertinent positive and negative findings are noted in the HPI. [x] Const [x] Eyes [x] ENT [x] Resp [] CV [x] GI [x] [x] Neuro [x] Musc [x] Skin [x] Psych [x] Endo [x] Allergy [x] Heme/Lymph Vital Signs: BP 112/69 (BP Location: Right arm, Patient Position: Lying) Pulse 66 Temp 97.7 F (36.5 C) (Oral) Resp 16 Ht 5' 10 Wt 108.9 kg (240 lb) SpO2 90% BMI 34.44 kg/m Physical Examination: Physical Exam HENT: Head: Normocephalic. Nose: Nose normal. Eyes: Pupils: Pupils are equal, round, and reactive to light. Cardiovascular: Rate and Rhythm: Regular rhythm. Pulses: Normal pulses. Comments: HR 103 and PVC's noted on telemetry. Abdominal: Palpations: Abdomen is soft. Tenderness: There is no abdominal tenderness. Musculoskeletal: General: Swelling (3+ generalized edema w/ pitting) present. Cervical back: Normal range of motion. Skin: General: Skin is warm and dry. Neurological: Mental Status: He is alert and oriented to person, place, and time. Psychiatric: Behavior: Behavior normal. Lab Results Component Value Date CREATININE 1.22 10/03/2020 BUN 26 (H) 10/03/2020 NA 133 (L) 10/03/2020 K 3.8 10/03/2020 CL 99 10/03/2020 BICARB 27 10/03/2020 Lab Results Component Value Date WBC 7.45 10/03/2020 HGB 14.5 10/03/2020 HCT 47.2 10/03/2020 MCV 78.8 (L) 10/03/2020 PLT 365 10/03/2020 RBC 5.99 (H) 10/03/2020 Lab Results Component Value Date TROPONINI <15 10/02/2020 Amberly Lira CNP [facility] Medicine Inpatient Follow-up 10/03/2020 Todd Ross MD [facility] Patient: Scott Arevalo Date of : 1955 (64 y.o.) PCP: Cristofer Zarate MD ASSESSMENT/PLAN: Scott Arevalo 64 y.o. male with significant history of decompensated with severe biventricular dysfunction and diastolic dysfunction, EF 15% with 3+ MR, pulmonary hypertension who presented to the hospital with worsening shortness of breath and fluid overload. Patient is admitted for acute CHF exacerbation as well as cardiology consultation. Principal Problem: Acute left-sided CHF (congestive heart failure) (HCC) PLAN: Acute CHF exacerbation Dilated cardiomyopathy: Severe mitral regurgitation: Continue IV Lasix, patient is diuresing well. Evaluated by cardiology, patient may need left and right heart cath before discharge. May also need FRED to closely monitor for mitral regurgitation. Appreciate cardiology recommendations. Mild PRUDENCIO: Likely due to fluid overload. Improving with diuresis. DVT prophylaxis: Lovenox SUBJECTIVE: Patient is alert and oriented, is on room air. Feeling much improved since diuresis. All other systems reviewed and negative other than noted above. OBJECTIVE: Physical Examination: BP 112/69 (BP Location: Right arm, Patient Position: Lying) Pulse 66 Temp 97.7 F (36.5 C) (Oral) Resp 16 Ht 5' 10 Wt 108.9 kg (240 lb) SpO2 90% BMI 34.44 kg/m General Appearance: Alert, well appearing, and in no acute distress. HEENT: Head - Normocephalic, atraumatic. Eyes - PRO bilaterally and EOMI. Ears - normal external appearance, hearing intact. Nose - normal, no erythema. Throat - mucous membranes moist, pharynx without lesions. Neck: Supple, trachea midline. Cardiovascular: S1, S2 normal. No murmurs, rubs, clicks or gallops appreciated. No pedal edema. Respiratory: Lungs clear to auscultation, no wheezes, rales or rhonchi heard. Abdomen: Soft, non-tender, normal bowel sounds, non-distended, no masses or organomegaly appreciated. Neurological: Grossly normal motor and sensory exam. No focal deficits. Musculoskeletal: No joint tenderness, deformity or swelling. Skin: Normal coloration and turgor. No rashes. Psych: Alert, oriented x 3. Normal mood and affect. CURRENT MEDICATIONS: enoxaparin (LOVENOX) injection 40 mg Subcutaneous Daily furosemide 20 mg Intravenous Q8H [facility] Results/Medications Reviewed 10/03/20 11:57 AM: Results from last 7 days Lab Units 10/03/20 0659 10/02/20 1046 SODIUM mmol/L 133* 130* POTASSIUM mmol/L 3.8 4.4 CHLORIDE mmol/L 99 96* BUN mg/dL 26* 23 CREATININE mg/dL 1.22 1.33* GLUCOSE mg/dL 84 86 CALCIUM mg/dL 8.8 -- Results from last 7 days Lab Units 10/03/20 0659 10/02/20 1046 WBC K/mcL 7.45 8.07 HGB g/dL 14.5 14.8 HCT % 47.2 48.1 PLT K/mcL 365 379 Results from last 7 days Lab Units 10/02/20 1046 TROPONIN I ng/L <15 Results from last 7 days Lab Units 10/02/20 1046 INR 1.4* Results from last 7 days Lab Units 10/03/20 0659 ALK PHOS U/L 237* BILIRUBIN TOTAL mg/dL 2.0* BILIRUBIN DIRECT mg/dL 1.1* TOTAL PROTEIN g/dL 7.0 ALTR U/L 20 AST U/L 24 CULTURES: Reviewed 11:57 AM IMAGING: Reviewed 11:57 AM documented in this encounter [facility] 10-06-2020 Note Cardiac Catheterizat ion Procedure Report Date of Service: 10/06/20 Principal Talent Partner and Supervising Physician: Dorian Barney MD Procedures Performed: Selective left and right coronary angiography Supervision and interpretation of angiographic findings Left heart catheterization Right heart catheterization Percutaneous coronary Intervention of LAD Instantaneous wave-free ratio of LAD Indication for Procedure: Scott Arevalo is a 64 y.o. male who presented to the hospital with acute on chronic systolic heart failure. Patient was then brought for urgent cardiac catheterization study. Medications: Fentanyl Versed Nitroglycerin 100mcg Verapamil 2.5mg Heparin 13,000units 1% Lidocaine for local infiltration 2cc Description of Procedure: Informed consent was obtained and the patient was brought to the cardiac catheterization laboratory where the right radial was cleaned, prepped, and draped in the usual sterile fashion and infiltrated with 2 cc of 1% lidocaine for local anesthesia. A 6F slender Terumo sheath was introduced in the right radial artery using the true Seldinger technique. A 5F JR4 catheter was used to selectively engage the right coronary artery. Selective right coronary angiography was performed in the usual views. A 5F JL3.5 catheter was used to selectively engage the left coronary artery. Selective left coronary angiography was performed in the usual views. A 5F JR4 catheter was used to cross AV into LV to record LVEDP and AV gradients. The sheath was flushed between catheter exchanges. Using US guidance and micropuncture needle, a 6F vascular sheath was placed in the right basilic vein using the true seldinger technique. Through the sheath, a 6F balloon-tipped pulmonary artery catheter was inserted, and was advanced through the right atrium, then across the tricuspid valve, into the right ventricle and pulmonary artery with the balloon inflated. A pulmonary capillary wedge position was confirmed. The balloon was deflated. A pulmonary arterial tracing was obtained. Perla cardiac outputs were determined. The catheter was left in place until the end of the case, at which time it was removed. The arterial and venous sheaths were aspirated and flushed with heparinized saline. After reviewing the angiograms, we decided to proceed with physiologic evaluation of LAD disease. Therefore, under the cover of heparin as the procedural anticoagulant, a 6F XBLAD3.5 guide catheter was used to engage the left coronary artery. A Astro Omni pressure wire was advanced into the LAD vessel and across the lesion. iFR was recorded as per standard protocol and was found to 0.86 which is significant. We therefore decided to proceed with percutaneous coronary intervention of the mid LAD lesion. The Omni wire was removed and run through coronary guidewire was advanced into the vessel and across the lesion. A 3.0 balloon was advanced to the site of the lesion and inflation made at 14 tanesha, and then removed. Using a guidezilla catheter, a 3.0 x 32 Synergy drug-eluting stent was advanced to the site of the lesion and deployed at 14 tanesha. The stent-delivery system was re-inflated at 14 tanesha and removed. A 3.0 NC balloon was advanced to the site of the lesion and inflation made at 14 tanesha, and then removed. Angiography did not reveal evidence of dissection or perforation. The guidewire was removed and final angiography revealed an adequate result. After any catheters and wires were removed, the arterial sheath was removed for a TR band using the standard technique to achieve adequate hemostasis. Hemodynamic Findings: Left Heart: Aortic Opening Pressure: 110/68 mmHg Aortic Closing Pressure: 108/70 mmHg LV Pressure: 112 mmHg, LV end diastolic pressure 18 mmHg Systolic LV pressure in LV prior to pullback: 117 mmHg Systolic pressure in aorta after pullback: 117 mmHg, pullback gradient not significant Right Heart Catheterization: Right Atrial Pressure: A wave 14 mmHg, V wave 17 mmHg, mean RA 12 mmHg Right Ventricular Pressure: 69 mmHg, RV end diastolic pressure 10 mmHg Pulmonary Artery Pressure: 69/32 mmHg, mean 46 mmHg Pulmonary Capillary Wedge Pressure: A wave 20 mmHg, V wave 24 mmHg, mean PCWP 17 mmHg Cardiac Output: 5.1 L/min Cardiac Index: 2.4 L/min/m2 PA saturation 65 % RA saturation 67 % AO saturation 92 % Coronary Angiographic Findings: Dominance: right Left Main: Absent - Separate ostia of LAD and LCX Left Anterior Descending Artery: The LAD measures 4.5 mm proximally and tapers to a 2.5 mm vessel distally. There is RONALD 3 flow in the body of the LAD. The LAD gives rise to 2 diagonal vessels. The LAD has severe calcification in the proximal segment. The mid LAD has moderate calcification with diffuse 70% stenosis. The iFR across this lesion was (more content not included)... [facility] 10-06-2020 Procedure note Cardiac Catheterization Procedure Report Date of Service: 10/06/20 Principal Talent Partner and Supervising Physician: Dorian Barney MD Procedures Performed: Selective left and right coronary angiography Supervision and interpretation of angiographic findings Left heart catheterization Right heart catheterization Percutaneous coronary Intervention of LAD Instantaneous wave-free ratio of LAD Indication for Procedure: Scott Arevalo is a 64 y.o. male who presented to the hospital with acute on chronic systolic heart failure. Patient was then brought for urgent cardiac catheterization study. Medications: Fentanyl Versed Nitroglycerin 100mcg Verapamil 2.5mg Heparin 13,000units 1% Lidocaine for local infiltration 2cc Description of Procedure: Informed consent was obtained and the patient was brought to the cardiac catheterization laboratory where the right radial was cleaned, prepped, and draped in the usual sterile fashion and infiltrated with 2 cc of 1% lidocaine for local anesthesia. A 6F slender Terumo sheath was introduced in the right radial artery using the true Seldinger technique. A 5F JR4 catheter was used to selectively engage the right coronary artery. Selective right coronary angiography was performed in the usual views. A 5F JL3.5 catheter was used to selectively engage the left coronary artery. Selective left coronary angiography was performed in the usual views. A 5F JR4 catheter was used to cross AV into LV to record LVEDP and AV gradients. The sheath was flushed between catheter exchanges. Using US guidance and micropuncture needle, a 6F vascular sheath was placed in the right basilic vein using the true seldinger technique. Through the sheath, a 6F balloon-tipped pulmonary artery catheter was inserted, and was advanced through the right atrium, then across the tricuspid valve, into the right ventricle and pulmonary artery with the balloon inflated. A pulmonary capillary wedge position was confirmed. The balloon was deflated. A pulmonary arterial tracing was obtained. Perla cardiac outputs were determined. The catheter was left in place until the end of the case, at which time it was removed. The arterial and venous sheaths were aspirated and flushed with heparinized saline. After reviewing the angiograms, we decided to proceed with physiologic evaluation of LAD disease. Therefore, under the cover of heparin as the procedural anticoagulant, a 6F XBLAD3.5 guide catheter was used to engage the left coronary artery. A Astro Omni pressure wire was advanced into the LAD vessel and across the lesion. iFR was recorded as per standard protocol and was found to 0.86 which is significant. We therefore decided to proceed with percutaneous coronary intervention of the mid LAD lesion. The Omni wire was removed and run through coronary guidewire was advanced into the vessel and across the lesion. A 3.0 balloon was advanced to the site of the lesion and inflation made at 14 tanesha, and then removed. Using a guidezilla catheter, a 3.0 x 32 Synergy drug-eluting stent was advanced to the site of the lesion and deployed at 14 tanesha. The stent-delivery system was re-inflated at 14 tanesha and removed. A 3.0 NC balloon was advanced to the site of the lesion and inflation made at 14 tanesha, and then removed. Angiography did not reveal evidence of dissection or perforation. The guidewire was removed and final angiography revealed an adequate result. After any catheters and wires were removed, the arterial sheath was removed for a TR band using the standard technique to achieve adequate hemostasis. Hemodynamic Findings: Left Heart: Aortic Opening Pressure: 110/68 mmHg Aortic Closing Pressure: 108/70 mmHg LV Pressure: 112 mmHg, LV end diastolic pressure 18 mmHg Systolic LV pressure in LV prior to pullback: 117 mmHg Systolic pressure in aorta after pullback: 117 mmHg, pullback gradient not significant Right Heart Catheterization: Right Atrial Pressure: A wave 14 mmHg, V wave 17 mmHg, mean RA 12 mmHg Right Ventricular Pressure: 69 mmHg, RV end diastolic pressure 10 mmHg Pulmonary Artery Pressure: 69/32 mmHg, mean 46 mmHg Pulmonary Capillary Wedge Pressure: A wave 20 mmHg, V wave 24 mmHg, mean PCWP 17 mmHg Cardiac Output: 5.1 L/min Cardiac Index: 2.4 L/min/m2 PA saturation 65 % RA saturation 67 % AO saturation 92 % Coronary Angiographic Findings: Dominance: right Left Main: Absent - Separate ostia of LAD and LCX Left Anterior Descending Artery: The LAD measures 4.5 mm proximally and tapers to a 2.5 mm vessel distally. There is RONALD 3 flow in the body of the LAD. The LAD gives rise to 2 diagonal vessels. The LAD has severe calcification in the proximal segment. The mid LAD has moderate calcification with diffuse 70% stenosis. The iFR across this lesion was 0.86 which is significant. The D1 has diffuse 60% stenosis. Left Circumflex Artery: The LCX measures 2.25 mm proximally and tapers to small vessel coursing along the AV groove. The LCX gives rise to 1 obtuse marginal branches. The LCX is free of significant disease. Right Coronary Artery: RCA is a large ectatic dominant vessel and measures 4.0 mm proximally and tapers to a 2.5 mm vessel distally prior to giving off the PDA. The RCA has severe calcification along its entire length from proximal to distal segments. There is moderate 50% disease in the mid RCA. The rPLB has a discrete 80% stenosis but the vessel is at best 2mm. The PDA has mild disease. . Pressure wire findings: Vessel iFR FFR Comments LM LAD 0.86 Mid LAD LCX RCA Percutaneous Coronary Intervention: Lesion #1: Mid LAD with ABEBE x 1 Pre: length 30 mm, stenosis 70%, RONALD 3 flow Post: length 30 mm, stenosis 0%, RONALD 3 flow Fluoroscopy Time: 14 minutes Contrast Volume: 80 cc of Isovue Complications: None apparent Summary: Two vessel severe calcific obstructive CAD. Successful percutaneous coronary intervention of mid LAD with ABEBE x 1 iFR of LAD 0.86 Elevated left Heart Filling pressures Elevated Right Heart Filling Pressures Severe pulmonary hypertension Normal Cardiac output and cardiac index Successful TR Band deployment to right RA. Recommendations: Aggressive risk factor modification Continued medical therapy and follow-up with primary garage manager Aspirin 81 mg daily indefinitely and clopidogrel 75 mg daily for ideally 6-12 months, or longer at the discretion of the primary garage manager GDMT for congestive heart failure and functional MR Dorian Barney MD, MPH, MRCP, FACC Interventional Cardiology/Structural Heart Disease [facility] documented in this encounter [facility] 10-06-2020 Hospital Discharg e instructions 10/06/2020 [facility] Post Cardiac Catheterization Discharge Instructions Site Care Leave Bandage in place the night of your catheterization. Watch for any bleeding or oozing from the site. If this occurs, lie flat and place direct pressure on the bandage for 20 minutes. If bleeding reoccurs call [facility]. For groins, remove your bandage the following morning and apply a Band-Aid over the site, so it has a complete seal over the area. This is to charity done for 5 days with a new Band-Aid each time. Soreness and bruising are to expected. For wrist and arms, remove your bandage the following morning and apply a Band-Aid over the site, so it has a complete seal over the area. This is to be done for 5 days with a new Band-Aid each time. Soreness and bruising are to be expected. Do not submerge catheterization site in water for 5 to 7 days following the procedure. Examples include bathing, swimming, sitting in a Jacuzzi or dishwashing. You may shower 24 hours after the procedure. Call [facility] at [phone] if you notice any of the following: Bleeding or increased swelling at the puncture site Redness Drainage (either pus or blood) Increased soreness around the wound A fever over 100 F Numbness, coldness, color change, or tingling pain in your arm or leg below the wound Light headedness, dizziness, weakness of arms or legs, or difficulty with speech Chest pain, pressure, tightness or burning in the chest, arm jaw or stomach Activity Limit your activity following the catheterization as follows: No lifting over 10 pounds for 2 days if done by groin No lifting over 5 pounds for 7 days if done by wrist. Do not manipulate the wrist for 24 hours No running, jogging, climbing (more than a few stairs) for 7 days No driving or operating heavy machinery for a minimum of 48 hours Do Not Smoke or use tobacco products for 24 hours after the procedure Discuss any other activity concerns with the nurse or physician Medications Continue taking all the current medications as directed on medication reconciliation record or unless otherwise instructed to by your physician. If you do not have prescription coverage and are in need of prescription assistance, please notify the [facility] nurse or call the office. If you were prescribed Plavix (clopidogrel), Effient (prasugrel), or Brilinta (ticagrelar) after your procedure, DO NOT STOP taking this medication unless told to do so by your [facility] garage manager. Follow up appointments, tests or procedures will be on your discharge paperwork under What's next. Please call [facility] at [phone] to reschedule any appointments if needed or if you have any questions or concerns. Thank you! [facility]agulation clinic will contact you with an arrival time for Friday's first blood draw. documented in this encounter [facility] 10-06-2020 Consult note Associated Order(s): IP CONSULT TO CARDIAC REHAB; IP CONSULT TO CARDIAC REHAB CHF Educational Activities: present for education. Topics Reviewed: CHF review, Ejection Fraction and type of HF, symptoms, pathophysiology, what to do if symptoms worsen, sodium restricted diet, limiting fluid intake, controlling hypertension, importance of daily weight monitoring, when to report weight gain and to whom, CHF medication uses and side effects, OTC medications to avoid, and importance of follow-up with physician/New Heart Failure Outpatient Clinic referral. [facility]'s Your Guide to Living with Heart Failure book reviewed and given. [facility] patient education video set up for pt and spouse to watch at bedside. Patient and spouse receptive resistant to education as evidenced by asking questions, and successful teach-back of topics reviewed. Identified opportunities for improvement: symptom tracking, symptom reporting, sodium restriction, fluid restriction, and new medication compliance Associated Order(s): IP CONSULT TO CARDIOLOGY General Cardiology Inpatient Consult Heart & Vascular [facility] 10/02/2020 Amberly Lira CNP [facility] Patient: Scott Arevalo Date of : 1955 (64 y.o.) Referring Provider: No ref. provider found PCP: Cristofer Zarate MD Reason for Consultation: Dilated cardiomyopathy. Assessment/Plan: Mitral regurgitation - 3+ centrally directed mitral valve regurgitation. - Patient is scheduled to see structural heart. - Will need a FRED once diuesed. HFrEF - EF os 15% per echo on 09/26/2020. - H/o allergic reaction to carvedilol w/ lips swelling. - Cough w/ lisinopril. - Severe RHF. - Strict I&O and daily weight. - 2G sodium diet and 1200 ml fluid restriction. - Daily labs. - Maintain potassium level between 4.0 and 4.8 and magnesium >2. - Echo as noted. - Patient will need a Rt and Lt heart cath once diuresed. - Patient will need the HF Clinic at the time of discharge. - Will plan for diuresis. - Lasix 20 mg IV TID (ordered by primary team). - Will start BB after diuresed. History of Present Illness: Patient is a pleasant 64 yo M w/ a h/o CM and gout who presented to the ED on 10/02/2020 w/ a c/o SOB and lower extremities. Patient's history dates back to April 2020 when he was in [place] and acquired a parasite and bacterial infection which was treated with antibiotics.. After that he was noted to have a low ejection fraction and was treated with diuretics (lasix). When there was no improvement in in his EF he was set up to see Dr. Blunt in our practice and was awaiting his outpatient appointment. In the interim he has developed volume overload and he and believe he has gained approximately 8 pounds. He also tells me that in 2009 he had an E. Coli infection and similarly had some water weight but it all resolved within a few months Troponin negative. BNP 7482 EKG 10/02/2020: Sinus tachycardia. Possible Left atrial enlargement Chest: 10/02/2020: 1. Borderline cardiac enlargement. 2. Prominence of the bronchovascular markings along with small bilateral effusions. Findings could represent early failure, bronchitis, or interstitial pneumonitis. Clinical correlation is suggested. Echo on 09/26/2020 1. Left ventricular chamber dimension is severely enlarged. 2. Global hypokinesis of the left ventricle. 3. Left ventricular systolic function is severely reduced with an ejection fraction by Biplane Method of Discs of 15 %. 4. The left ventricular diastolic function is grade III diastolic dysfunction, consistent with markedly elevated left atrial pressure (restrictive LV filling). 5. Right ventricular chamber dimension is severely enlarged. 6. Right ventricular systolic function is severly reduced. 7. There is pulmonary hypertension, estimated right ventricle systolic pressure is 59 mmHg. 8. There is 3+ centrally directed mitral valve regurgitation. Risk Factors: HTN: Denies HPL: Denies BMI: 34.44 DM: Denies Smoking: Never Alcohol: No Recreational Drugs: No Sleep apnea: He does endorse snoring. Family Hx Father: Father had PA at 69 and at 79 Mother: Mother at 79 - some heart issues. Subjective: Patient is in the ED w/ in room, both are very pleasant. He does not appear to be in distress. He will be a good candidate for the HF Clinic. Past Medical History: Diagnosis Date Cardiomyopathy (HCC) dilated Gout No past surgical history on file. No family history on file. Social History Tobacco Use Smoking Status Not on file Allergies: Bee venom protein (honey bee), Carvedilol, Celexa [citalopram], Hydroxyzine, Lisinopril, and Morphine Prior to Admission medications Medication Sig Start Date End Date Taking? Authorizing Provider allopurinoL (ZYLOPRIM) 100 MG tablet Take 100 mg by mouth daily . Historical Provider, apixaban (ELIQUIS) 5 mg Tab Take 5 mg by mouth 2 (two) times a day . Historical Provider, coenzyme Q10 10 mg capsule Take 10 mg by mouth daily . Historical Provider, furosemide (LASIX) 20 MG tablet Take 20 mg by mouth daily . Historical Provider, Saccharomyces boulardii (Probiotic, S.boulardii,) 250 mg capsule Take 250 mg by mouth 3 (three) times a day . Historical Provider, selenium 200 mcg Tab Take 200 mcg by mouth 2 (two) times a day . Historical Provider, spironolactone (ALDACTONE) 25 MG tablet Take 25 mg by mouth daily . Historical Provider, No current facility-administered medications for this encounter. Review of Systems: Review of Systems Constitutional: Positive for malaise/fatigue and weight gain. Negative for diaphoresis and weight loss. HENT: Negative for hearing loss, nosebleeds and tinnitus. Eyes: Negative for blurred vision and visual disturbance. Cardiovascular: Positive for dyspnea on exertion, leg swelling, orthopnea and palpitations. Negative for chest pain, claudication, cyanosis, irregular heartbeat, near-syncope, paroxysmal nocturnal dyspnea and syncope. Respiratory: Positive for shortness of breath and snoring. Negative for hemoptysis. Endocrine: Negative for cold intolerance and heat intolerance. Hematologic/Lymphatic: Does not bruise/bleed easily. Skin: Negative for flushing, poor wound healing and rash. Musculoskeletal: Negative for back pain, muscle weakness and myalgias. Gastrointestinal: Negative for abdominal pain, change in bowel habit, melena, nausea and vomiting. Genitourinary: Negative for decreased libido and hematuria. Neurological: Negative for loss of balance and numbness. Psychiatric/Behavioral: Negative for memory loss. The patient is not nervous/anxious. Vital Signs: BP 122/86 Pulse (!) 115 Temp 97.5 F (36.4 C) (Oral) Resp 16 Ht 5' 10 Wt 108.9 kg (240 lb) SpO2 97% BMI 34.44 kg/m Physical Exam: Alert, no acute distress JVP is not elevated Heart is regular rate and rhythm. Lungs is on RA w/ decreased BS in bases. Abdomen is mostly soft, patient fills if is more firm than normal Lower extremeties have 3+ pittting edema Telemetry: Sinus rhythm at 103 Lab Results Component Value Date WBC 8.07 10/02/2020 HGB 14.8 10/02/2020 HCT 48.1 10/02/2020 MCV 77.8 (L) 10/02/2020 PLT 379 10/02/2020 RBC 6.18 (H) 10/02/2020 Lab Results Component Value Date CREATININE 1.33 (H) 10/02/2020 BUN 23 10/02/2020 NA 130 (L) 10/02/2020 K 4.4 10/02/2020 CL 96 (L) 10/02/2020 BICARB 23 10/02/2020 Lab Results Component Value Date TROPONINI <15 10/02/2020 Amberly Lira CNP Associated attestation - Sheron Beebe MD - 10/02/2020 5:31 PM EDT Attending Addendum I have personally seen and examined the patient on 10/02/2020. I have reviewed the pertinent lab and dianostic data (new and old if applicable). I agree with the RAD[facility] history, physical exam, assessment and plan, by Amberly Lira CNP, with modifications listed below. Patient is 64yo who presented with decompensated severe biventricular dysfunction and diastolic dysfunction, LVEF 15% and diastolic heart failure with 3+ MR and pulmonary hypertension. Interestingly patient describes a history 10 years back when he followed with a garage manager in [place] at that time based historically he had LV dysfunction and was on carvedilol and lisinopril. Patient's stated he became increasingly fatigued they attributed it to the medications which were eventually stopped and patient subsequently reported not needing to follow-up with a garage manager. Patient has been active without physical limitations until the end of April early May. He describes a trip to [place], where he returned with reported parasitic infection, and afterwards he has had worsening shortness of breath, and swelling of his abdomen legs and scrotum. Patient had been referred to cardiology as an outpatient, was scheduled to see Dr Blunt in our office. But due to worsening edema and failure of outpatient furosemide therapy he presented to the emergency room. Patient has clinical stigmata of significant decompensated biventricular heart failure, first we will diurese him to attempt to achieve euvolemia. Can utilize IV Lasix, would have a low threshold to switch to IV Bumex if he fails to be net -500 to 1000 cc in the next 24 hours. Once his volume status is closer to euvolemia then will plan for a left and right heart catheterization. Afterwards he may benefit from repeat cardiovascular imaging looking specifically at his mitral regurgitation depending on his filling pressures on cath with possibly a structural heart referral or cardiac MRI. First attention will be to achieve euvolemia. Anticipate this to take several days. Additional recommendations to be forthcoming. Blood pressure 122/86, pulse (!) 115, temperature 97.5 F (36.4 C), temperature source Oral, resp. rate 16, height 5' 10 , weight 108.9 kg (240 lb), SpO2 97 %. Physical Exam: Habitus: Obese Head is normocephalic. Neck: Elevated JVD, at least 4 cm Heart: Regular Rhythm, tachy rate. Normal Intensity S1 and S2. No murmurs. Lungs: Clear to auscultation. Good air movement. No crackles noted. Extremities: Extremities are warm. 3+ pitting lower ext edema. Scrotal edema Neuro: Alert Abdomen is soft, nontender without any masses noted. Protuberant M/S: No significant muscular atrophy. Skin: Normal skin turgor. Thank you for the consult and please do not hesitate to contact me with an questions or concerns. documented in this encounter [facility] 10-02-2020 History and physi skip note [facility] Medicine Inpatient H&P 10/02/2020 Trip Morris MD [facility] Patient: Scott Arevalo Date of : 1955 (64 y.o.) PCP: Cristofer Zarate MD Assessment Scott Arevalo 64 y.o. male with no significant past medical history presenting with Principal Problem: Acute left-sided CHF (congestive heart failure) (HCC) Plan: Admit as inpatient to intermediate Dilated cardiomyopathy Possible viral etiology, so patient has according to him parasite infection in April Reviewing old records sound like patient has cardiomyopathy since 2011, and he has intermittent treatment in the last 8 years. -Consult cardiology for further evaluation Start patient on Lasix 20 mg IV every 8 Patient has allergic reaction to carvedilol will consider starting patient on metoprolol and watch for allergy Continue spironolactone for now Further plan depending on cardiology evaluation and management DVT prophylaxis With Lovenox SUBJECTIVE: Chief Complaint: Increased lower extremity swelling and weakness History of Presenting Illness: Scott Arevalo is a 64 y.o. male presenting from home with complaint of increased lower extremity swelling 64-year-old male who has been healthy until last April when he was diagnosed with according to him it look like parasite infection treated with medication by his family doc after that patient gradually started having more swelling in his lower extremity and increasing fatigue and shortness of breath currently patient has 2D echo done in April and then repeat echo was done a week ago and patient was scheduled to see cardiology next week but symptoms got worse recently. Patient has been increasing in weight gain increasing swelling lower extremity also increased fatigue and orthopnea. Review of Systems: 10 systems reviewed and negative other than noted in HPI History: Past Medical History: Diagnosis Date Cardiomyopathy (HCC) dilated Gout No past surgical history on file. No family history on file. Social History Tobacco Use Smoking Status Not on file Social History Substance and Sexual Activity Alcohol Use Not on file Family and Social History reviewed and non-pertinent to this visit Allergies: Bee venom protein (honey bee), Carvedilol, Celexa [citalopram], Hydroxyzine, Lisinopril, and Morphine Home Medications: Outpatient Medications as of 10/02/2020 Medication Sig allopurinoL (ZYLOPRIM) 100 MG tablet Take 100 mg by mouth daily . apixaban (ELIQUIS) 5 mg Tab Take 5 mg by mouth 2 (two) times a day . coenzyme Q10 10 mg capsule Take 10 mg by mouth daily . furosemide (LASIX) 20 MG tablet Take 20 mg by mouth daily . Saccharomyces boulardii (Probiotic, S.boulardii,) 250 mg capsule Take 250 mg by mouth 3 (three) times a day . selenium 200 mcg Tab Take 200 mcg by mouth 2 (two) times a day . spironolactone (ALDACTONE) 25 MG tablet Take 25 mg by mouth daily . OBJECTIVE: Physical Examination: BP (!) 122/95 Pulse (!) 104 Temp 98.1 F (36.7 C) (Oral) Resp 16 Ht 5' 10 Wt 108.9 kg (240 lb) SpO2 99% BMI 34.44 kg/m General Appearance: Alert, well appearing, and in no acute distress. HEENT: Head - Normocephalic, atraumatic. Eyes - PRO bilaterally and EOMI. Ears - normal external appearance, hearing intact. Nose - normal, no erythema. Throat - mucous membranes moist, pharynx without lesions. Neck: Supple, trachea midline. Cardiovascular: S1, S2 normal. No murmurs, rubs, clicks or gallops appreciated. 3+ edema bilaterally Respiratory: Lungs clear to auscultation, no wheezes, rales or rhonchi heard. Abdomen: Soft, non-tender, normal bowel sounds, non-distended, no masses or organomegaly appreciated. Positive for ascites Neurological: Grossly normal motor and sensory exam. No focal deficits. Musculoskeletal: No joint tenderness, deformity or swelling. Skin: Normal coloration and turgor. No rashes. Psych: Alert, oriented x 3. Normal mood and affect. Laboratory and Additional Data Reviewed: Results/Medications Reviewed 10/02/20 12:41 PM: Results from last 7 days Lab Units 10/02/20 1046 SODIUM mmol/L 130* POTASSIUM mmol/L 4.4 CHLORIDE mmol/L 96* BUN mg/dL 23 CREATININE mg/dL 1.33* GLUCOSE mg/dL 86 Results from last 7 days Lab Units 10/02/20 1046 WBC K/mcL 8.07 HGB g/dL 14.8 HCT % 48.1 PLT K/mcL 379 Results from last 7 days Lab Units 10/02/20 1046 TROPONIN I ng/L <15 Results from last 7 days Lab Units 10/02/20 1046 INR 1.4* Results from last 7 days Lab Units 10/02/20 1046 ALK PHOS U/L 250* BILIRUBIN TOTAL mg/dL 2.3* BILIRUBIN DIRECT mg/dL 0.9* TOTAL PROTEIN g/dL 7.4 ALTR U/L 22 AST U/L 46* CULTURES: Reviewed 12:41 PM IMAGING: Reviewed 12:41 PM documented in this encounter [facility] 10-02-2020 Emergency departm ent Note Pt ambulates to ED Room 11 with complaints of shortness of breath since yesterday and chronic bilateral leg swelling that has gotten worse over the past 3 days. Pt states he weighed him self a week ago and he was 230lb today he was a little bit over 240lb. Pt states he believes he retaining a lot of water. Pt states he has an appointment in 2 weeks with his garage manager but he couldn't wait that long to see him. Pt states they tried to get in sooner and also tried to get in to see a different garage manager and they didn't have any sooner appointments for him. No fever, no dizziness, no chestpain. Patient in no acute distress, respirs even and unlabored, speech clear, ambulating in triage. [facility] ED Attending Note: NAME: Scott Arevalo 64 y.o. CSN: [id number] PCP: Cristofer Zarate MD History: Chief Complaint: Shortness of Breath HPI: The history was obtained from the patient. Scott is a 64 y.o. male who presents with a chief complaint of Shortness of Breath. Patient 64-year-old male presents with shortness of breath, history of cardiomyopathy, echo done on 511, EF of 15%, with RVSP of 59. Patient has been having lower extremity swelling along with the shortness of breath, he states he has been keeping it based on 20 mg of furosemide daily but over the last 2 days has taken 50 mg, daily but has still had increasing shortness of breath, no nausea vomiting no chest pain, shortness of breath at rest and with ambulation PMHx: Past Medical History: Diagnosis Date Cardiomyopathy (HCC) dilated Gout PMSx: No past surgical history on file. FAM. Hx: No family history on file. SOC. Hx: Social History Socioeconomic History Marital status: Spouse name: Not on file Number of children: Not on file Years of education: Not on file Highest education level: Not on file Occupational History Not on file Tobacco Use Smoking status: Not on file Substance and Sexual Activity Alcohol use: Not on file Drug use: Not on file Sexual activity: Not on file Other Topics Concern Not on file Social History Narrative Not on file Social Determinants of Health Financial Resource Strain: Difficulty of Paying Living Expenses: Food Insecurity: Worried About Running Out of Food in the Last Year: Ran Out of Food in the Last Year: Transportation Needs: Lack of Transportation (Medical): Lack of Transportation (Non-Medical): Physical Activity: Days of Exercise per Week: Minutes of Exercise per Session: Stress: Feeling of Stress : Social Connections: Frequency of Communication with Friends and Family: Frequency of Social Gatherings with Friends and Family: Attends Nondenominational Services: Active Member of Clubs or Organizations: Attends Club or Organization Meetings: Marital Status: MEDs: Previous Medications Medication Sig allopurinoL (ZYLOPRIM) 100 MG tablet Take 100 mg by mouth daily . apixaban (ELIQUIS) 5 mg Tab Take 5 mg by mouth 2 (two) times a day . coenzyme Q10 10 mg capsule Take 10 mg by mouth daily . furosemide (LASIX) 20 MG tablet Take 20 mg by mouth daily . Saccharomyces boulardii (Probiotic, S.boulardii,) 250 mg capsule Take 250 mg by mouth 3 (three) times a day . selenium 200 mcg Tab Take 200 mcg by mouth 2 (two) times a day . spironolactone (ALDACTONE) 25 MG tablet Take 25 mg by mouth daily . ALL: Allergies Allergen Reactions Bee Venom Protein (Honey Bee) Hives, edema Carvedilol hives Celexa [Citalopram] ED Hydroxyzine Increased anxiety Lisinopril cough Morphine vomiting PACU Vitals 10/02/20 1040 BP: Pulse: Resp: Temp: 98.1 F (36.7 C) SpO2: Review of Systems Constitutional: Negative for activity change and appetite change. HENT: Negative for congestion, facial swelling and sinus pain. Respiratory: Positive for shortness of breath. Negative for cough and choking. Cardiovascular: Positive for leg swelling. Negative for chest pain. Gastrointestinal: Negative for abdominal distention and abdominal pain. Genitourinary: Negative for dysuria and flank pain. Musculoskeletal: Negative for neck pain. Neurological: Negative for dizziness and syncope. Psychiatric/Behavioral: Negative for confusion and suicidal ideas. All other systems reviewed and are negative. Physical Exam Vitals and nursing note reviewed. Constitutional: Appearance: Normal appearance. He is not diaphoretic. HENT: Head: Normocephalic and atraumatic. Right Ear: External ear normal. Left Ear: External ear normal. Nose: Nose normal. No congestion or rhinorrhea. Mouth/Throat: Mouth: Mucous membranes are moist. Eyes: General: No scleral icterus. Extraocular Movements: Extraocular movements intact. Conjunctiva/sclera: Conjunctivae normal. Pupils: Pupils are equal, round, and reactive to light. Cardiovascular: Rate and Rhythm: Normal rate and regular rhythm. Pulses: Normal pulses. Heart sounds: Normal heart sounds. No murmur heard. No gallop. Pulmonary: Effort: Pulmonary effort is normal. No respiratory distress. Breath sounds: Examination of the right-lower field reveals rales. Examination of the left-lower field reveals rales. Rales present. No wheezing. Chest: Chest wall: No tenderness. Abdominal: Palpations: Abdomen is soft. There is no mass. Tenderness: There is no abdominal tenderness. There is no guarding or rebound. Musculoskeletal: General: No swelling. Cervical back: Neck supple. Right lower leg: Edema present. Left lower leg: Edema present. Comments: Bilateral 3+ lower extremity edema Skin: General: Skin is warm. Neurological: General: No focal deficit present. Mental Status: He is alert and oriented to person, place, and time. Mental status is at baseline. Psychiatric: Mood and Affect: Mood normal. Laboratory & Radiological Imaging (if done): Recent Results (from the past 24 hour(s)) EKG 12-lead Collection Time: 10/02/20 10:39 AM Result Value Ref Range Ventricular Rate 120 BPM Atrial Rate 120 BPM P-R Interval 160 ms QRS Duration 82 ms Q-T Interval 332 ms QTC Calculation (Bezet) 469 ms P [place] 79 degrees R [place] 84 degrees T [place] 59 degrees NT Pro BNP Collection Time: 10/02/20 10:46 AM Result Value Ref Range NT-Pro BNP 7,482 (H) 0 - 300 pg/mL Chem 7 Collection Time: 10/02/20 10:46 AM Result Value Ref Range Sodium 130 (L) 135 - 145 mmol/L Potassium 4.4 3.5 - 5.1 mmol/L Chloride 96 (L) 98 - 108 mmol/L Bicarbonate 23 21 - 32 mmol/L Creatinine 1.33 (H) 0.80 - 1.30 mg/dL Glucose 86 65 - 99 mg/dL BUN 23 8 - 25 mg/dL eGFR 55 (L) >=60 mL/min/1.73 m2 BUN/Creatinine Ratio 17.3 10.0 - 20.0 Anion Gap 15 10 - 20 mmol/L Hepatic Function Panel (LFT) Collection Time: 10/02/20 10:46 AM Result Value Ref Range Total Protein 7.4 6.0 - 8.0 g/dL Albumin 3.0 (L) 3.2 - 5.2 g/dL Total Bilirubin 2.3 (H) 0.0 - 1.3 mg/dL Bilirubin, Direct 0.9 (H) 0.0 - 0.4 mg/dL Alkaline Phosphatase 250 (H) 40 - 150 U/L AST 46 (H) 0 - 45 U/L ALT 22 14 - 65 U/L PT/INR Collection Time: 10/02/20 10:46 AM Result Value Ref Range Protime (PT) 17.0 (H) 11.8 - 14.3 seconds INR 1.4 (H) 0.8 - 1.1 Troponin Collection Time: 10/02/20 10:46 AM Result Value Ref Range Troponin I <15 <=45 ng/L Troponin I Interpretation Normal CBC Auto Differential Collection Time: 10/02/20 10:46 AM Result Value Ref Range WBC 8.07 4.50 - 11.00 K/mcL RBC 6.18 (H) 4.50 - 5.90 M/mcL Hemoglobin 14.8 13.5 - 17.5 g/dL Hematocrit 48.1 41.0 - 53.0 % MCV 77.8 (L) 80.0 - 100.0 fL MCH 23.9 (L) 26.0 - 34.0 pg MCHC 30.8 (L) 31.0 - 37.0 g/dL Platelets 379 150 - 400 K/mcL RDW - CV 22.7 (H) 11.6 - 14.8 % MPV 9.9 9.4 - 12.4 fL Neutrophils 61.4 % Lymphocytes 29.5 % Monocytes 7.2 % Eosinophils 0.5 % Basophils 1.0 % IG Percent 0.40 % Neutrophils Abs 4.96 1.70 - 7.00 K/mcL Lymphocytes Abs 2.38 0.90 - 4.00 K/mcL Monocytes Abs 0.58 0.30 - 0.90 K/mcL Eosinophils Abs 0.04 0.00 - 0.50 K/mcL Basophils Abs 0.08 0.00 - 0.30 K/mcL IG Absolute 0.03 0.00 - 0.30 K/mcL Nucleated RBC 0.0 % Nucleated RBC Abs 0.00 0.00 - 0.00 K/mcL XR Chest 1 View Final Result 1. Borderline cardiac enlargement. 2. Prominence of the bronchovascular markings along with small bilateral effusions. Findings could represent early failure, bronchitis, or interstitial pneumonitis. Clinical correlation is suggested. Workstation ID: [id number] ED Course / Medical Decision Making: I suspect this patient is at heart failure exacerbation, given the significance of his leg swelling, and his overall cardiac picture, will get basic labs chest x-ray reevaluate EKG 1039, sinus tachycardia rate 120 QRS 82 QTC 469, nonspecific ST changes, T wave flattening in aVF and lead II Lab work consistent with CHF exacerbation, BNP elevated 7400, sodium low at 130, creatinine 1.33, will give IV Lasix, chest x-ray consistent with heart failure, will admit to the hospital, Liver enzymes are elevated be has no significant pain, suspect most likely secondary to congestive hepatopathy Clinical Impression: 1. Acute on chronic combined systolic and diastolic congestive heart failure (HCC) Ramy Erwin MD [facility] Emergency Department (Please note that portions of this note have been completed with a voice recognition software. Efforts were made to correct any errors, but occasionally words are mis-transcribed.) Ramy Erwin MD 10/02/20 1132 Ramy Erwin MD 10/02/20 1133 Bed: 11 Expected date: Expected time: Means of arrival: Comments: RUNNER documented in this encounter [facility] 09-26-2020 History of Presen t illness Narrative Outside echo images received-radiology to upload into pt's chart today. documented in this encounter [facility] 09-20-2020 History of Presen t illness Narrative [facility] note-spoke directly with pt's Sofi, she reports patient has never seen cardiology previously in the past. The only records they have to obtain are Dr Zarate's records (which they have sent recent OV note with echo report). Will scan records into pt's chart. documented in this encounter [facility] 09-19-2020 History of Presen t illness Narrative [facility] note-received referral from Dr Cristofer Zarate to eval pt in [facility] re: mitral valve insufficiency and cardiomyopathy. Records received from Dr Zarate's office, including echo report from 05/17/20. Called [facility], requested that pt's echo be burnt to disc and mailed to our office power for review. Pt to be scheduled for repeat echo prior to appt with Dr Blunt on 10/11/20. Scheduling to contact pt to schedule appt. [facility] Mitral valve insufficiency, unspecified etiology Cardiomyopathy, unspecified type (HCC) [facility] Diagnosis Acute left-sided CHF (congestive heart failure) (HCC)- Primary [facility] Diagnosis Acute combined systolic and diastolic congestive heart failure (HCC)- Primary [facility] Diagnosis Acute left-sided CHF (congestive heart failure) (HCC)- Primary Left heart failure Acute on chronic combined systolic and diastolic congestive heart failure (HCC) S/P PTCA (percutaneous transluminal coronary angioplasty) Postsurgical percutaneous transluminal coronary angioplasty status [facility] Diagnosis LV dysfunction- Primary Left heart failure Acute left-sided CHF (congestive heart failure) (HCC) Left heart failure [facility] Diagnosis Acute combined systolic and diastolic congestive heart failure (HCC) Hypotension, unspecified hypotension type Coronary artery disease involving [place] coronary artery of [place] heart without angina pectoris [facility] Diagnosis Chronic systolic congestive heart failure (HCC)- Primary [facility] Diagnosis Coronary artery disease involving [place] coronary artery of [place] heart, unspecified whether angina present Hyperlipidemia, unspecified hyperlipidemia type [facility] Diagnosis Acute left-sided CHF (congestive heart failure) (HCC)- Primary Left heart failure Coronary artery disease involving [place] coronary artery of [place] heart without angina pectoris Hyperlipidemia, unspecified hyperlipidemia type [facility] Diagnosis Cardiomyopathy, unspecified type (HCC)- Primary Chronic systolic congestive heart failure (HCC) Coronary artery disease involving [place] coronary artery of [place] heart, unspecified whether angina present [facility] Diagnosis Hypotension, unspecified hypotension type- Primary Coronary artery disease involving [place] coronary artery of [place] heart, unspecified whether angina present Hyperlipidemia, unspecified hyperlipidemia type [facility] Diagnosis Hypotension, unspecified hypotension type- Primary HFrEF (heart failure with reduced ejection fraction) (HCC) Coronary artery disease involving [place] coronary artery of [place] heart without angina pectoris [facility] Diagnosis Coronary artery disease involving [place] coronary artery of [place] heart, unspecified whether angina present- Primary Hyperlipidemia, unspecified hyperlipidemia type HFrEF (heart failure with reduced ejection fraction) (HCC) [facility] Diagnosis Coronary artery disease involving [place] coronary artery of [place] heart, unspecified whether angina present- Primary Hyperlipidemia, unspecified hyperlipidemia type HFrEF (heart failure with reduced ejection fraction) ([facility]) documented in this encounter [facility] note* Diagnosis Coronary artery disease involving [place] coronary artery of [place] heart, unspecified whether angina present- Primary [facility] Diagnosis Coronary artery disease involving [place] coronary artery of [place] heart, unspecified whether angina present- Primary Acute left-sided CHF (congestive heart failure) (HCC) Left heart failure HFrEF (heart failure with reduced ejection fraction) ([facility]) Hyperlipidemia, unspecified hyperlipidemia type documented in this encounter [facility] Summary Purpose Family History No Family History Records FoundNo Family History Records FoundNo Family History Records FoundNo Family History Records FoundNo Family History Records FoundNo Family History Records Found Advance Directives Documents on File Type Date Recorded Patient [employer] Expl anation Advance Directives and Livin g Will 09/19/2020 12:00 AM Documents on File Type Date Recorded Patient [employer] Expl anation Advance Directives and Livin g Will 09/19/2020 12:00 AM Documents on File Type Date Recorded Patient [employer]er Expl anation Advance Directives and Livin g Will 09/26/2020 7:35 AM Documents on File Type Date Recorded Patient [employer]er Expl anation Advance Directives and Livin g Will 09/26/2020 7:35 AM Documents on File Type Date Recorded Patient [employer]er Expl anation Advance Directives and Livin g Will 10/02/2020 7:35 AM Latest Code Status on File Code Status Date Activated Date Inactivated Comments Full Code 10/02/2020 12:41 PM Documents on File Type Date Recorded Patient [employer] Expl anation Advance Directives and Livin g Will 10/02/2020 7:35 AM Latest Code Status on File Code Status Date Activated Date Inactivated Comments Full Code 10/02/2020 12:41 PM Latest Code Status on File Code Status Date Activated Date Inactivated Comments Full Code 10/06/2020 2:36 PM 10/09/2020 5:43 PM Full Code 10/02/2020 12:41 PM 10/06/2020 2:36 PM Documents on File Type Date Recorded Patient [employer] Expl anation Advance Directives and Livin g Will 10/18/2020 10:11 AM Documents on File Type Date Recorded Patient [employer]er Expl anation Advance Directives and Livin g Will 10/18/2020 10:11 AM Latest Code Status on File Code Status Date Activated Date Inactivated Comments Full Code 10/06/2020 2:36 PM 10/09/2020 5:43 PM Full Code 10/02/2020 12:41 PM 10/06/2020 2:36 PM Documents on File Type Date Recorded Patient [employer] Expl anation Advance Directives and Livin g Will 01/09/2021 10:36 AM Documents on File Type Date Recorded Patient [employer]er Expl anation Advance Directives and Livin g Will 05/01/2021 8:47 AM Documents on File Type Date Recorded Patient [employer]er Expl anation Advance Directives and Livin g Will 01/09/2021 10:36 AM Latest Code Status on File Date Activated Date Inactivated Comments 10/06/2020 2:36 PM 10/09/2020 5:43 PM Full Code Date Activated Date Inactivated Comments 10/02/2020 12:41 PM 10/06/2020 2:36 PM Latest Code Status on File Code Status Date Activated Date Inactivated Comments Full Code 10/06/2020 2:36 PM 10/09/2020 5:43 PM Code Status History Code Status Date Activated Date Inactivated Comments Full Code 10/02/2020 12:41 PM 10/06/2020 2:36 PM Hospital Course Note HNO ID: [id number] Author: Karsten Herr Service: Hospital Medicine Author Type: Physician Type: Discharge Summary Filed: 02/02/2020 10:43 AM Note Text: DISCHARGE SUMMARY PATIENT NAME: Scott Arevalo Code Status: Not on file Highest Readmission Risk Score: 9 The 30 day readmissions risk score is derived from an internally validated risk model which evaluates patient level characteristics, utilization history, medication orders and lab results up until the day of discharge. Patients with a score of 40 or above are considered highest risk for readmission. Specific patient level drivers will be listed at the bottom of the summary. Admission Information Admission Information ADMIT DATE: 01/22/2020 DISCHARGE DATE: 01/24/2020 MY DOCTORS AND MEDICAL TEAM: [facility] Doctor: Alok Herr Primary Care Provider: Cristofer Zarate MD My Medical Team Members: Treatment Team: Attending Provider: Alok Herr Consulting: Yunier Murray Primary Service: [employer] MY CONDITIO (more content not included)... Reason for Referral Status Reason Specialty Diagnoses / Procedures Referred By Contact Referred To Contact Authorized Cardiology Diagnoses Mitral valve insufficiency, unspecified etiology Cardiomyopathy, unspecified type (HCC) Procedures Echocardiogram complete Vern Blunt MD [address] [place] [address] Status Reason Specialty Diagnoses / Procedures Referred By Contact Referred To Contact Authorized Specialty Services Required/Patient 's Best Interest Cardiology Diagnoses Acute combined systolic and diastolic congestive heart failure (HCC) Todd Ross MD [address] [place] [address] Bernice Leo DOCUMENT MANAGEMENT SPECIALIST [address] [place] [address] Status Reason Specialty Diagnoses / Procedures Referred By Contact Referred To Contact Authorized Cardiac Rehabilitation Diagnoses S/P PTCA (percutaneous transluminal coronary angioplasty) Dorian Barney MD [address] [place] [address] [address] [place] [phone] Status Reason Specialty Diagnoses / Procedures Referred By Contact Referred To Contact Authorized Cardiology Diagnoses LV dysfunction Procedures Echocardiogram limited Ignacio Olivo CNP [address] [place] [address] Status Reason Specialty Diagnoses / Procedures Referred By Contact Referred To Contact Pending Review Cardiac Rehabilitation Diagnoses Acute combined systolic and diastolic congestive heart failure (HCC) Bernice Leo, DOCUMENT MANAGEMENT SPECIALIST [address] [place] [address] Status Reason Specialty Diagnoses / Procedures Referred By Contact Referred To Contact Authorized Cardiac Rehabilitation Diagnoses Coronary artery disease involving [place] coronary artery of [place] heart, unspecified whether angina present Vern Blunt MD [address] [place] [address] Cardio Pulm [address] [place] [phone] Specialty Diagnoses / Procedures Referred By Rudolph t Referred To Contact Cardiology Diagnoses HFrEF (heart failure with reduced ejection fraction) ([facility]) Hypotension, unspecified hypotension type Coronary artery disease involving [place] coronary artery of [place] heart without angina pectoris Procedures Echocardiogram limited Bernice Leo, DOCUMENT MANAGEMENT SPECIALIST [address] [place] [address] Referral ID Status Reason Start Date Expiration Date V isits Requested Visits Authorized [id number] Authorized 04/05/2021 04/05/2022 1 1 Specialty Diagnoses / Procedures Referred By Rudolph chew Referred To Contact Radiology Diagnoses Coronary artery disease involving [place] coronary artery of [place] heart, unspecified whether angina present HFrEF (heart failure with reduced ejection fraction) ([facility]) Procedures NM Myocardial Perfusion Multiple SPECT Vern Blunt MD [address] [place] [address] Referral ID Status Reason Start Date Expiration Date V isits Requested Visits Authorized [id number] Authorized 10/25/2021 10/25/2022 4 4 Additional Source Comments (unrecognized sect ion and content) No Status Records FoundNo Status Records FoundNo Status Records FoundNo Status Records FoundNo Status Records FoundNo Status Records Found INFORMATION SOURCE (unrecogn ized section and content) DATE CREATED AUTHOR AUTHOR'S ORGANIZ ATION 02/04/2020 [facility] DATE CREATED AUTHOR AUTHOR'S ORGANIZ ATION 10/28/2020 [facility] DATE CREATED AUTHOR AUTHOR'S ORGANIZ ATION 06/30/2021 [facility] DATE CREATED AUTHOR AUTHOR'S ORGANIZ ATION 11/10/2021 [facility] DATE CREATED AUTHOR AUTHOR'S ORGANIZ ATION 07/15/2022 [facility] Reason for Visit (unrecogniz ed section and content) Reason Comments Shortness of Breath Status Reason Specialty Diagnoses / Procedures Referre d By Contact Referred To Contact Diagnoses Acute left-sided CHF (congestive heart failure) (HCC) Acute on chronic combined systolic and diastolic congestive heart failure (HCC) Reason Comments Follow-up Reason Comments Congestive Heart Failure Status Reason Specialty Diagnoses / Procedures Referred By Contact Referred To Contact Closed Specialty Services Required/Patient' s Best Interest Cardiology Diagnoses Acute combined systolic and diastolic congestive heart failure (HCC) Todd Ross MD [address] [place] [address] Bernice Leo CNS [address] [phone] Reason Onset Date Comments Phase II Cardiac Rehab 10/30/2020 Reason Comments Congestive Heart Failure Pt states that he is feeling much better Reason Comments Follow-up wishes to discuss co umadin therapy Reason Comments Congestive Heart Failure pt states that he had a fall friday from running [place] [employer]. Reason Comments Medication Refill Reason Comments Congestive Heart Failure Reason Onset Date Comments Medication Refill 10/08/2021 Reason Onset Date Comments Medication Refill 11/29/2021 Reason Onset Date Comments Medication Refill 04/05/2022 Reason Onset Date Comments Medication Refill 07/09/2022 Reason Onset Date Comments Medication Refill 07/23/2022 Reason Onset Date Comments Medication Refill 07/31/2022 Reason Onset Date Comments Medication Refill 03/05/2023 Reason Onset Date Comments Medication Refill 03/31/2023 Scheduled Active and Recently Administ ered Medications (unrecognized section and content) PRN Medication Order 10/07/2020 10/08/2020 10/09/2020 acetaminophen (TYLENOL) tablet 650 mg 650 mg, Oral, Every 4 hours PRN, mild pain, fever 100.4 F or greater, headaches, Starting on Fri10/02/20 at 1549 gadoterate meglumine (DOTAREM) injection 40 mL (COMPLETED) 40 mL, Intravenous, Once in imaging, contrast, Starting on Fri10/09/20 at 1017, For 1 dose 1104 (Contrast Admin istered - Provider: Cristofer Albright, TECHNOLOGIST - Comment: [id number], exp: 03/2025) nitroGLYCERIN (NITROSTAT) SL tablet 0.4 mg 0.4 mg, Sublingual, Every 5 min PRN, chest pain, Starting on Fri10/02/20 at 1549, For chest pain. May give up to 3 doses. Call physician for chest pain unrelieved by Nitroglycerin, or recurrent chest pain. DO NOT CRUSH OR CHEW. ondansetron (ZOFRAN-ODT) disintegrating tablet 4 mg 4 mg, Oral, Every 6 hours PRN, nausea, vomiting, Starting on Fri10/02/20 at 1549, Orally disintegrating tablet: Open blister pack and place tablet on the tongue; tablet is formulated to dissolve on the tongue without water; do not split tablet. Formulation requires tablet remain in sealed package until immediately prior to dose being administered. traZODone (DESYREL) tablet 50 mg 50 mg, Oral, Nightly PRN, sleep, Starting on Fri10/02/20 at 1549, [] May repeat times 1 in 30 minutes if still awake. Care Teams (unrecognized sec tion and content) Lawyer Criminal Relationship Specialty Start Date End Date Cristofer Zarate MD [address] [place] [address] PCP - General Family Medicine 09/19/20 Lawyer Criminal Relationship Specialty Start Date End Date Cristofer Zarate MD [address] [facility] [address] [place] [address] PCP - General Family Medicine 09/19/20 Lawyer Criminal Relationship Specialty Start Date End Date Cristofer Zarate MD [address] [facility] [address] [place] [address] PCP - General Family Medicine 09/19/20 Lawyer Criminal Relationship Specialty Start Date End Date Cristofer Zarate MD [address] [facility] [address] [place] [address] PCP - General Family Medicine 09/19/20 Lawyer Criminal Relationship Specialty Start Date End Date Cristofer Zarate MD [address] [facility] [address] [place] [address] PCP - General Family Medicine 09/19/20 Lawyer Criminal Relationship Specialty Start Date End Date Cristofer Zarate MD [address] [place], [place] [address] [phone] PCP - General Family Medicine 09/19/20 Lawyer Criminal Relationship Specialty Start Date End Date Cristofer Zarate MD [address] [facility] [address] [place] [address] PCP - General Family Medicine 09/19/20 Lawyer Criminal Relationship Specialty Start Date End Date Cristofer Zarate MD [address] [facility] [address] [place] [address] PCP - General Family Medicine 09/19/20 Lawyer Criminal Relationship Specialty Start Date End Date Cristofer Zarate MD [address] [facility] [address] [place] [address] PCP - General Family Medicine 09/19/20 Lawyer Criminal Relationship Specialty Start Date End Date Cristofer Zarate MD [address] [facility] [address] [place] [address] PCP - General Family Medicine 09/19/20 Lawyer Criminal Relationship Specialty Start Date End Date Cristofer Zarate MD [address] [facility] [address] [place] [address] PCP - General Family Medicine 09/19/20 Lawyer Criminal Relationship Specialty Start Date End Date Cristofer Zarate MD [address] [facility] [address] [place] [address] PCP - General Family Medicine 09/19/20 FOR RECORDS PERTAINING TO PATIENTS WHO ARE OR HAVE BEEN ENROLLED IN A CHEMICAL DEPENDENCY/SUBSTANCEABUSE PROGRAM, SOME INFORMATION MAY BE OMITTED. This clinical summary was aggregated from multiple sources. Caution should be exercised in using it in the provision of clinical care. This summary normalizes information from multiple sources, and as a consequence, information in this document may materially change the coding, format and clinical context of patient data. In addition, data may be omitted in some cases. CLINICAL DECISIONS SHOULD BE BASED ON THE PRIMARY CLINICAL RECORDS. [employer]. provides no warranty or guarantee of the accuracy or completeness of information in this document.
--- NOTE | 2023-07-11 07:35 | HP.PCM_ITS ---
History and Physical Date of Admission: 07/11/23 Visit Reasons: POSITIVE COLOGUARD Chief Complaint: Positive Cologuard Is patient in pain?: No Allergies milk Adverse Reaction (Verified 04/28/23 10:12) Nauseamorphine Adverse Reaction (Verified 04/28/23 10:12) Nausea Medications clopidogrel 75 mg tablet (Plavix) 75 mg PO DAILY 07/19/21 [History Confirmed 04/28/23] warfarin 5 mg tablet 5 mg PO DAILY 07/19/21 [History Confirmed 04/28/23] bisoprolol fumarate 5 mg tablet 5 mg PO DAILY 07/20/21 [History Confirmed 04/28/23] coenzyme Q10 75 mg capsule (Ultra CoQ10) 75 mg PO DAILY 07/20/21 [History Confirmed 04/28/23] selenium 200 mcg capsule 200 mcg PO DAILY 07/20/21 [History Confirmed 04/28/23] spironolactone 25 mg tablet (Aldactone) 25 mg PO DAILY 07/20/21 [History Confirmed 04/28/23] valsartan 40 mg tablet 20 mg PO DAILY 07/20/21 [History Confirmed 04/28/23] [facility] Medical History (Updated 07/19/21 @ 15:24 by Enedina BAIG PA-C) History of hemorrhoids Left sided numbness Positive colorectal cancer screening using Cologuard test Surgical History (Updated 07/19/21 @ 12:53 by Kanika Friday) History of cardiac cath History of heart artery stent Family History (Updated 07/19/21 @ 12:53 by Kanika Friday) Father Hypertension Social History (Updated 07/19/21 @ 12:53 by [place] Friday) Smoking Status: Never smoker alcohol intake: never substance use type: does not use HPI HPI HPI: 67-year-old gentleman. He has most recently been seen in this office on July 19, 2021 by Enedina Lacy PA-C. He had had a positive Cologuard test. Previous colonoscopy was 30 years prior. At that time because of a cardiac stent placed September 2020 at [facility] he was on both clopidogrel and Coumadin therapy. It was recommended to him that he have a combined upper and lower endoscopy. We did receive cardiology of informationThat he should be maintained on his aspirin and clopidogrel until September 2021 at which point the Plavix could then be held for 5 days. The patient and state that he is aware of the need for the upper and lower scope. He was ill on the previously scheduled day and 2021 and then simply did not pursue and reschedule. He denies any current bright red blood per rectum or melena. No abdominal pain. He is still on warfarin therapy. Also notes that he is on Plavix ROS General General: No weight change, appetite, fatigue, colon cancer, breast cancer or weakness HEENT HEENT: No difficulty swallowing, eye injury, eye surgery, swollen glands or hoarseness Endo Endocrine: No thyroid disease, diabetes mellitus, thyroid cancer, Hair loss, heat intolerance or cold intolerance Skin Skin: No rash or changing moles Musc Musculoskeletal: No back problems, arthritis, rheumatoid arthritis, gout or joint pain Cardio Cardiovascular: Yes heart stent; No murmur, pacemaker, heart disease, atrial fibrillation, high blood pressure, heart attack, palpitations, shortness of breat with exertion or chest pain Additional Details: September 2020 Psych Psychiatric: No depression, anxiety or hearing voices Resp Respiratory: No shortness of breath, No sleep apnea, No cough, No COPD, No asthma, No emphysema and No wheezing Gastro Gastrointestinal: No abdominal pain, No nausea or vomiting, No diarrhea, No constipation, No blood in stool, No acid reflux, Yes hemorrhoids, No ulcers, No gallbladder problem and No black,tarry stools Tony Hematologic: Yes blood thinners, No blood disorders, No bleeding, No anemia and No blood clots Additional Details: Coumadin and Plavix Neuro Neurologic: No system reviewed and no additional complaints, except as documented, No as per HPI, No abnormal gait, No abnormal hearing, No abnormal movements, No abnormal speech, No behavioral changes, No burning sensations, No confusion, No convulsions, No disequilibrium, No dizziness, No localized weakness, No frequent falls, No headache(s), No lack of coordination, No loss of vision, No memory loss, No numbness, No other visual disturbances, No radicular pain, No restless legs, No sensory deficit, No syncope, No tingling, No tremor(s), No weakness and No other Exam Const General: cooperative and comfortable Nutritional Appearance: obese HENMT Head: normal to inspection Eyes General: appearance normal, both eyes and all related structures Neck Neck: normal visual inspection Chest Chest palpation & inspection: normal inspection of the chest Resp Effort & Inspection: normal respiratory effort Auscultation: clear to auscultation bilaterally Cardio Rate: regular rate Rhythm: regular rhythm GI Palpation: soft and no hepatosplenomegaly Musc Cervical Spine: normal cervical lordosis Skin General: no rashes or lesions noted Neuro General: patient alert, patient awake and patient oriented x3 Extrem General: no calf tenderness Psych Appearance: grossly normal Assessment and Plan Assessment and Plan (1) Positive colorectal cancer screening using Cologuard test: Status: Acute Plan: Again I recommended the patient a combined esophagogastroduodenoscopy with possible biopsy and colonoscopy with possible biopsy or polypectomy as indicated. The patient is aware of the technique benefit risk complication alternatives. On today's visit recants that 3 to 5 years ago he had an upper GI bleed related to ibuprofen therapy. He has ceased using any NSAIDs. He denies any current acute illnesses. He has had an opportunity to ask and have questions answered. We will reschedule as appropriate. I appreciate the ongoing opportunity of assisting with his surgical care. Copy: Dr. Rick Aguilera M.D., F.A.C.S. I have examined the patient and the H&P has been reviewed. There are no clinical changes since date of exam. Jason Aguilera M.D., F.A.C.S.
[2023-07-11 07:52] LABS: INR Fingerstick 1.3; Prothrombin Time Fingerstick 14.4 SEC (11.7-14.9)
[2023-07-11] MEDS: Lactated Ringers 1,000 ML 15 ML IV (07:57)
--- NOTE | 2023-07-11 08:45 | IMM_PTH ---
PATHOLOGY RESULTS PATIENT: MORENA ALLRED LOC: EN U#:[id number] AGE/SX: 67/M ROOM: RE07/11/[address]: Dr. Jason Aguilera MD : 1955 BED: DIS: 07/11/2023 SPEC #: [id number] RECD: 07/11/23 13:32 STATUS: NANCY REElaine #: [id number] ELVI: 07/11/23 08:[address]: Jason Aguilera DEPT: IMMUNOHISTOCHEMISTRY RECD BY: Lanette Ness ENTERED: 07/11/23 13:33 SP TYPE: IMMUNO OTHR DR: Dr. Rick Zarate MD Tissues: Stomach, NOS Procedures: H Pylori (initial) PHYSICIAN & INSTITUTION [place] [address] SPECIMEN INFORMATION: Tissue Source: A - Antrum Clinical Info: Positive Cologuard test Specimen Number: [id number] CPT code: 73876 METHODOLOGY: Deparaffinized sections of prefer/formalin-fixed tissue or PAP/DQ stained slides are incubated with monoclonal/polyclonal antibodies/oligonucleotide probes. Localization is made via biotin free immunoperoxidase method. Appropriate controls are performed and reacted as expected. Results on target cell population are indicated in the following table: RESULTS: ANTIBODY / CLONE RESULT Block A H Pylori (polyclonal) negative These tests were developed and their performance characteristics determined by [facility]. They may not have been cleared or approved by the U.S. Food and Drug Administration. The FDA has determined that such clearance or approval is not necessary. The above immunohistochemical/dualISH markers are ordered and reviewed by the Pathologist. INTERPRETATION: A. Antrum, biopsy: Negative for Helicobacter pylori organisms. SJ:jonah 07/14/2023
--- NOTE | 2023-07-11 08:45 | COLBX_PTH ---
PATHOLOGY RESULTS PATIENT: MORENA ALLRED LOC: EN U#:[id number] AGE/SX: 67/M ROOM: RE07/11/[address]: Dr. Jason Aguilera MD : 1955 BED: DIS: 07/11/2023 SPEC #: [id number] RECD: 07/11/23 12:41 STATUS: NANCY GUEVARA #: [id number] ELVI: 07/11/23 08:[address]: Jason Aguilera DEPT: SURGICAL PATHOLOGY RECD BY: Hetal Jarrett ENTERED: 07/11/23 12:42 SP TYPE: COLON BX OTHR DR: Dr. Rick Zarate MD Tissues: Gastric mucous membrane Esophageal mucous membrane Transverse colon Sigmoid colon biopsy Sigmoid colon biopsy Descending colon Procedures: Special Stain Group II Surgery Specimen Level IV Alcian Blue/PAS (control) HEADER OPERATION: Colonoscopy with polypectomies with biopsy and dilation PRE-OP DIAGNOSIS: Positive Cologuard test TISSUE SUBMITTED: A - Antrum biopsy for H. pylori and pathology, B - Distal esophagus biopsy, C - Mid transverse polyp, D - Proximal sigmoid polyp, E - Distal sigmoid polyp, F - Descending colon polyp biopsy MICROSCOPIC DIAGNOSIS A. Antrum, biopsy: Mild gastritis. See microscopic description and comment. B. Distal esophagus, biopsy: A fragment of gastroesophageal mucosa with chronic inflammation. Intestinal metaplasia (goblet cell metaplasia) not identified. See comment. C. Mid transverse colon polyp, polypectomy: Tubular adenoma. D. Proximal sigmoid colon polyp, polypectomy: Tubular adenoma. E. Distal sigmoid polyp, polypectomy: Fragments of serrated adenoma with cautery artifacts. F. Descending colon polyp, biopsy: Fragments of tubular adenoma. SJ:jonah 07/14/2023 COMMENT A. The results of immunohistochemistry for Helicobacter pylori will be reported separately ([id number]). B. Alcian blue/PAS stain with matched control is used in the evaluation of the specimen. MICROSCOPIC DESCRIPTION Slides are reviewed. A. The specimen shows fragments of gastric mucosa with chronic inflammatory cell infiltrates in the lamina propria consisting of lymphocytes and plasma cells, consistent with mild chronic gastritis. GROSS DESCRIPTION A - Received in fixative is one container labeled with the patient's name and designated antrum biopsy. The specimen consists of multiple irregular fragments of light knight soft tissue that in aggregate measure 0.3 x 0.3 x 0.1 cm. The specimen is totally submitted in one cassette. B - Received in fixative is one container labeled with the patient's name and designated distal esophagus biopsy. The specimen consists of one irregular fragment of light knight soft tissue that measures 0.3 x 0.3 x 0.1 cm. The specimen is totally submitted in one cassette. C - Received in fixative is one container labeled with the patient's name and designated mid transverse polyp. The specimen consists of one irregular fragment of light knight soft tissue that measures 0.4 x 0.4 x 0.2 cm. The specimen is totally submitted in one cassette. D - Received in fixative is one container labeled with the patient's name and designated proximal sigmoid polyp. The specimen consists of a pink, congested polyp measuring 0.8 x 0.6 x 0.6 cm. The presumed base is inked. The polyp is bisected and submitted entirely in one cassette. E - Received in fixative is one container labeled with the patient's name and designated distal sigmoid polyp. The specimen consists of multiple irregular fragments of light knight soft tissue that in aggregate measure 1.0 x 0.3 x 0.1 cm. The specimen is totally submitted in one cassette. F - Received in fixative is one container labeled with the patient's name and designated descending colon polyp. The specimen consists of two irregular fragments of light knight soft tissue that in aggregate measure 0.5 x 0.2 x 0.1 cm. The specimen is totally submitted in one cassette. / SJ:jonah 07/11/2023 TC:1 CPT: 78920 x6, [id number]
--- NOTE | 2023-07-11 09:56 | OP.EGD_ITS ---
Patient Name: Scott Arevalo Procedure Date: 07/11/2023 9:00 AM Date of : 1955 Age: 67 Procedure: Upper GI endoscopy Indications: Cologuard positive Providers: Jason Aguilera MD Referring MD: Jason Aguilera MD Medicines: See the Anesthesia note for documentation of the administered medications Complications: No immediate complications. Procedure: Pre-Anesthesia Assessment: - Prior to the procedure, a History and Physical was performed, and patient medications and allergies were reviewed. The patient's tolerance of previous anesthesia was also reviewed. The risks and benefits of the procedure and the sedation options and risks were discussed with the patient. All questions were answered, and informed consent was obtained. Prior Anticoagulants: The patient has taken no anticoagulant or antiplatelet agents. ASA Grade Assessment: II - A patient with mild systemic disease. After reviewing the risks and benefits, the patient was deemed in satisfactory condition to undergo the procedure. After obtaining informed consent, the endoscope was passed under direct vision. Throughout the procedure, the patient's blood pressure, pulse, and oxygen saturations were monitored continuously. The Colonoscope was introduced through the mouth, and advanced to the second part of duodenum. The upper GI endoscopy was accomplished without difficulty. The patient tolerated the procedure well. Scope In: 9:11:25 AM Scope Out: 9:23:17 AM Total Procedure Duration Time 0 hours 11 minutes 52 seconds Findings: LA Grade B (one or more mucosal breaks greater than 5 mm, not extending between the tops of two mucosal folds) esophagitis with no bleeding was found 36 cm from the incisors. Biopsies were taken with a cold forceps for histology. One benign-appearing, intrinsic moderate stenosis was found 36 cm from the incisors. The stenosis was traversed. A TTS dilator was passed through the scope. Dilation with an 18-19-20 mm balloon dilator was performed to 18 mm. The dilation site was examined and showed moderate improvement in luminal narrowing. Estimated blood loss was minimal. A medium-sized hiatal hernia was present. Diffuse mildly erythematous mucosa without bleeding was found in the gastric antrum. Biopsies were taken with a cold forceps for histology. The examined duodenum was normal. Impression: - LA Grade B reflux esophagitis with no bleeding. Biopsied. - Benign-appearing esophageal stenosis. Dilated. - Medium-sized hiatal hernia. - Erythematous mucosa in the antrum. Biopsied. - Normal examined duodenum. Recommendation: - Discharge patient to home. - Resume previous diet. - Continue present medications. - Use Prilosec (omeprazole) 40 mg PO daily. - Telephone my office for pathology results in 1 week. This may well be the source of the Cologuard positivity. Procedure Code(s): --- Professional --- 10488, Esophagogastroduodenoscopy, flexible, transoral; with transendoscopic balloon dilation of esophagus (less than 30 mm diameter) 41419, 59, Esophagogastroduodenoscopy, flexible, transoral; with biopsy, single or multiple Diagnosis Code(s): --- Professional --- K21.00, Gastro-esophageal reflux disease with esophagitis, without bleeding K22.2, Esophageal obstruction K44.9, Diaphragmatic hernia without obstruction or gangrene K31.89, Other diseases of stomach and duodenum CPT copyright 2021 [employer]. All rights reserved. The codes documented in this report are preliminary and upon nuclear physics teacher review may be revised to meet current compliance requirements. Jason Aguilera MD 07/11/2023 9:56:22 AM This report has been signed electronically. Number of Addenda: 0 Note Initiated On: 07/11/2023 9:00 AM
--- NOTE | 2023-07-11 09:56 | OP.CCLET_ITS ---
07/11/2023 Rick Zarate [address] [facility] [address] [place] [address] Re : [facility] This procedure was performed on Tuesday, July 11, 2023. My impressions and recommendations are as follows: Impressions : - LA Grade B reflux esophagitis with no bleeding. Biopsied. - Benign-appearing esophageal stenosis. Dilated. - Medium-sized hiatal hernia. - Erythematous mucosa in the antrum. Biopsied. - Normal examined duodenum. Recommendations : - Discharge patient to home. - Resume previous diet. - Continue present medications. - Use Prilosec (omeprazole) 40 mg PO daily. - Telephone my office for pathology results in 1 week. This may well be the source of the Cologuard positivity. My findings are described in the full procedure note, which is enclosed. If I can be of further assistance, please feel free to contact me at Doctor phone number(s): Work: . Sincerely, Jason Aguilera MD 07/11/2023 9:56:22 AM This report has been signed electronically.
--- NOTE | 2023-07-11 10:02 | OP.COLON_ITS ---
Patient Name: Scott Arevalo Procedure Date: 07/11/2023 9:23 AM Date of : 1955 Age: 67 Procedure: Colonoscopy Indications: Cologuard positive Providers: Jason Aguilera MD Referring MD: Jason Aguilera MD Medicines: See the Anesthesia note for documentation of the administered medications Patient Profile: Last Colonoscopy: more than 10 years ago. Complications: No immediate complications. Procedure: Pre-Anesthesia Assessment: - Prior to the procedure, a History and Physical was performed, and patient medications and allergies were reviewed. The patient's tolerance of previous anesthesia was also reviewed. The risks and benefits of the procedure and the sedation options and risks were discussed with the patient. All questions were answered, and informed consent was obtained. Prior Anticoagulants: The patient has taken no anticoagulant or antiplatelet agents. ASA Grade Assessment: II - A patient with mild systemic disease. After reviewing the risks and benefits, the patient was deemed in satisfactory condition to undergo the procedure. After I obtained informed consent, the scope was passed under direct vision. Throughout the procedure, the patient's blood pressure, pulse, and oxygen saturations were monitored continuously. The Colonoscope was introduced through the anus and advanced to the cecum, identified by appendiceal orifice and ileocecal valve. The colonoscopy was performed without difficulty. The patient tolerated the procedure well. The quality of the bowel preparation was good. The ileocecal valve and the appendiceal orifice were photographed. Scope In: 9:25:22 AM Scope Withdrawal Time 0 hours 19 minutes 38 seconds Scope Out: 9:48:36 AM Total Procedure Duration Time 0 hours 23 minutes 14 seconds Findings: The digital rectal exam findings include non-thrombosed external hemorrhoids, non-thrombosed internal hemorrhoids and internal hemorrhoids that prolapse with straining, but spontaneously regress to the resting position (Grade II). Pertinent negatives include no palpable rectal lesions. A 7 mm polyp was found in the distal transverse colon. The polyp was sessile. The polyp was removed with a hot snare. Resection and retrieval were complete. A 12 mm polyp was found in the proximal sigmoid colon. The polyp was pedunculated. The polyp was removed with a hot snare. Resection and retrieval were complete. An 8 mm polyp was found in the distal sigmoid colon. The polyp was sessile. Polypectomy was attempted, initially using a hot snare. Polyp resection was incomplete with this device. This intervention then required a different device and polypectomy technique. The polyp was removed with a cold biopsy forceps. Resection and retrieval were complete. A 6 mm polyp was found in the mid descending colon. The polyp was sessile. The polyp was removed with a cold biopsy forceps. Resection and retrieval were complete. Multiple diverticula were found in the sigmoid colon and descending colon. Additional finding of a submucosal lipoma in the mid ascending colon. No samples obtained Impression: - Non-thrombosed external hemorrhoids, non-thrombosed internal hemorrhoids and internal hemorrhoids that prolapse with straining, but spontaneously regress to the resting position (Grade II) found on digital rectal exam. - One 7 mm polyp in the distal transverse colon, removed with a hot snare. Resected and retrieved. - One 12 mm polyp in the proximal sigmoid colon, removed with a hot snare. Resected and retrieved. - One 8 mm polyp in the distal sigmoid colon, removed with a cold biopsy forceps. Resected and retrieved. - One 6 mm polyp in the mid descending colon, removed with a cold biopsy forceps. Resected and retrieved. - Diverticulosis in the sigmoid colon and in the descending colon. Submucosal lipoma mid ascending colon. Recommendation: - Discharge patient to home. - Resume previous diet. - Continue present medications. - Repeat colonoscopy in 3 years for surveillance based on pathology results. - Telephone my office for pathology results in 1 week. Procedure Code(s): --- Professional --- 69514, Colonoscopy, flexible; with removal of tumor(s), polyp(s), or other lesion(s) by snare technique 48228, 59, Colonoscopy, flexible; with biopsy, single or multiple Diagnosis Code(s): --- Professional --- K64.1, Second degree hemorrhoids K64.4, Residual hemorrhoidal skin tags D12.3, Benign neoplasm of transverse colon (hepatic flexure or splenic flexure) D12.5, Benign neoplasm of sigmoid colon D12.4, Benign neoplasm of descending colon K57.30, Diverticulosis of large intestine without perforation or abscess without bleeding CPT copyright 2021 [employer]. All rights reserved. The codes documented in this report are preliminary and upon field care coordinator review may be revised to meet current compliance requirements. Jason Aguilera MD 07/11/2023 10:02:01 AM This report has been signed electronically. Number of Addenda: 0 Note Initiated On: 07/11/2023 9:23 AM
--- NOTE | 2023-07-11 10:02 | OP.CCLET_ITS ---
07/11/2023 Rick Zarate [address] [place] [address] Re : Colonoscopy procedure for Scott Arevalo Dear Dr. Zarate This procedure was performed on Tuesday, July 11, 2023. My impressions and recommendations are as follows: Impressions : - Non-thrombosed external hemorrhoids, non-thrombosed internal hemorrhoids and internal hemorrhoids that prolapse with straining, but spontaneously regress to the resting position (Grade II) found on digital rectal exam. - One 7 mm polyp in the distal transverse colon, removed with a hot snare. Resected and retrieved. - One 12 mm polyp in the proximal sigmoid colon, removed with a hot snare. Resected and retrieved. - One 8 mm polyp in the distal sigmoid colon, removed with a cold biopsy forceps. Resected and retrieved. - One 6 mm polyp in the mid descending colon, removed with a cold biopsy forceps. Resected and retrieved. - Diverticulosis in the sigmoid colon and in the descending colon. Submucosal lipoma mid ascending colon. Recommendations : - Discharge patient to home. - Resume previous diet. - Continue present medications. - Repeat colonoscopy in 3 years for surveillance based on pathology results. - Telephone my office for pathology results in 1 week. My findings are described in the full procedure note, which is enclosed. If I can be of further assistance, please feel free to contact me at Doctor phone number(s): Work: . Sincerely, Jason Aguilera MD 07/11/2023 10:02:01 AM This report has been signed electronically.
== END 2023-07-11 11:14 | disposition home or self-care (01) ==
LOC: EN 07:24 → AC 07:25
PROVIDERS: PCP Family Medicine; Referring Provider Surgery; Visit Provider Surgery
PROC: 0DJD8ZZ Inspection of Lower Intestinal Tract, Via Natural or Artificial Opening Endoscopic (ICD-10-PCS; CPT 45378; principal; 2023-07-11 08:40)
DX: Z12.11 Encounter for screening for malignant neoplasm of colon (principal); K57.30 Diverticulosis of large intestine without perforation or abscess without bleeding; K64.4 Residual hemorrhoidal skin tags; K44.9 Diaphragmatic hernia without obstruction or gangrene; K21.00 Gastro-esophageal reflux disease with esophagitis, without bleeding; K22.2 Esophageal obstruction; Z95.5 Presence of coronary angioplasty implant and graft; Z79.01 Long term (current) use of anticoagulants; Z79.02 Long term (current) use of antithrombotics/antiplatelets; E66.9 Obesity, unspecified; K64.1 Second degree hemorrhoids; Z79.899 Other long term (current) drug therapy; K29.70 Gastritis, unspecified, without bleeding; D12.3 Benign neoplasm of transverse colon; D12.5 Benign neoplasm of sigmoid colon; D12.4 Benign neoplasm of descending colon; D17.5 Benign lipomatous neoplasm of intra-abdominal organs
CPT/HCPCS: 43249; 45380; 43239; 45385; 36416; 85610; 88305; 88313; 88342; J7120; J2405

== ENCOUNTER → 2023-10-08 | Outpatient (CLI) | payer MEDICARE, OTHER, SELFPAY ==
--- NOTE | 2023-10-08 10:26 | ECHOCS_ITS ---
Reason For Study: CARDIOMYOPATHY Procedure This was a 2D Doppler, Color Flow transthoracic echocardiogram. The study was technically difficult. Contrast injection was performed. Exam performed in department. Left Ventricle Mildly dilated left ventricle. The estimated ejection fraction is 35 %. There is evidence of diastolic dysfunction. There is moderate to severe global hypokinesis of the left ventricle. Right Ventricle Normal RV size. Normal systolic function. Atria The left atrium is moderately enlarged. Normal right atrium. No doppler evidence for ASD. Mitral Valve There is no mitral valve stenosis. Mild (1+) mitral valve insufficiency. Tricuspid Valve There is no tricuspid stenosis. Unable to estimate RV systolic pressure due to inadequate jet, pulmonary artery pressure probably normal. Aortic Valve Trisinus/trileaflet aortic valve. There is no aortic stenosis. Trivial aortic valve insufficiency. Pulmonic Valve There is no pulmonic valvular stenosis. No pulmonic valve insufficiency. Great Vessels Normal aortic root. Pericardium/Pleural No pericardial effusion. Medication 22 gauge I.V. with prn adaptor inserted into right arm. Diluted definity 2.0ml given slow IV push to enhance endocardial definition. MMode/2D Measurements & Calculations LVIDd: 6.5 cm IVSd: 1.0 cm Ao root diam: 3.2 cm LVIDs: 5.8 cm LVPWd: 1.1 cm RVDd: 3.4 cm FS: 10.9 % LAV(MOD-bp): 87.0 ml LVAd ap4: 49.3 cm2 LVAd ap2: 36.4 cm2 LAV(MOD-bp) Indexed: 36.5 ml/m2 LVLd ap4: 10.3 cm LVLd ap2: 9.7 cm LAV(MOD-sp2): 89.3 ml EDV(MOD-sp4): 197.2 ml EDV(MOD-sp2): 118.4 ml LAV(MOD-sp4): 79.7 ml EDV(sp4-el): 200.7 ml EDV(sp2-el): 115.6 ml LVAs ap4: 35.1 cm2 LVAs ap2: 27.1 cm2 LVLs ap4: 8.4 cm LVLs ap2: 8.0 cm ESV(MOD-sp4): 121.5 ml ESV(MOD-sp2): 73.8 ml ESV(sp4-el): 124.5 ml ESV(sp2-el): 78.1 ml EF(MOD-sp4): 38.4 % EF(MOD-sp2): 37.6 % EF(sp4-el): 38.0 % SV(MOD-sp4): 75.7 ml SV(MOD-sp2): 44.5 ml SV(sp4-el): 76.2 ml LA A4 area: 24.3 cm2 LA dimension(2D): 5.8 cm RA A4 area: 18.6 cm2 TAPSE: 2.1 cm Time Measurements MV dec time: 0.24 sec Doppler Measurements & Calculations MV E max erik: 93.8 cm/sec Lat Peak E' Erik: 11.8 cm/sec Med Peak E' Erik: 6.2 cm/sec MV A max erik: 81.4 cm/sec E/E' lat: 7.9 E/E' med: 15.1 MV E/A: 1.2 MV V2 max: 98.8 cm/sec MV P1/2t max erik: 96.9 cm/sec Ao V2 max: 136.2 cm/sec MV max P.9 mmHg MV P1/2t: 84.4 msec Ao max P.4 mmHg MV V2 mean: 54.8 cm/sec Ao V2 mean: 100.5 cm/sec MV mean P.4 mmHg MV dec slope: 336.4 cm/sec2 Ao mean P.4 mmHg MV V2 VTI: 34.4 cm MVA(P1/2t): 2.6 cm2 Ao V2 VTI: 30.4 cm AV (velocity ratio): 0.62 LV V1 max: 95.4 cm/sec MR max erik: 543.6 cm/sec PA V2 max: 83.0 cm/sec LV V1 max P.6 mmHg MR max P.3 mmHg PA V2 mean: 64.3 cm/sec LV V1 mean P.9 mmHg MR mean erik: 449.0 cm/sec LV V1 mean: 63.6 cm/sec MR mean P.5 mmHg LV V1 VTI: 18.9 cm MR VTI: 199.2 cm ECHO/Echo Complete W/ Contrast Interpretation Summary Mildly dilated left ventricle. The estimated ejection fraction is 35 %. There is moderate to severe global hypokinesis of the left ventricle. There is evidence of diastolic dysfunction. The left atrium is moderately enlarged. Mild (1+) mitral valve insufficiency. Trivial aortic valve insufficiency. Ordering Physician: Rick Zarate Referring Physician: Rick Zarate Performed By: Cristal Preston RDCS, RVT
== END | disposition home or self-care (01) ==
LOC: CVS 10:23
PROVIDERS: PCP Family Medicine; Referring Provider Family Medicine; Visit Provider Family Medicine
DX: I42.9 Cardiomyopathy, unspecified (principal); I25.10 Atherosclerotic heart disease of native coronary artery without angina pectoris
CPT/HCPCS: 93306; Q9957; A4216; C8929

== ENCOUNTER → 2024-04-23 | Outpatient (CLI) | payer MEDICARE, OTHER, SELFPAY ==
[2024-04-23 12:15] LABS: Absolute Lymphocyte Count 2.08 X10^3/uL (0.83-4.51); Basophil# 0.09 X10^3/uL; Basophil% 1.1 % (0-1); Eosinophil# 0.09 X10^3/uL; Eosinophils% 1.1 % (0-5); Hematocrit 51.3 % (40-54); Hemoglobin 16.3 g/dL (13.0-16.5); Lymphocyte # 2.08 X10^3/ul (0.83-4.51); Lymphocyte % 26.4 % (19-41); Mean Corp Hgb Conc 31.8 g/dL (32-36); Mean Corpuscular Hgb 28.7 pg (27.0-32.0); Mean Corpuscular Volume 90.5 fL (80-94); Mean Platelet Vol. 12.1 fl (6.2-12.0); Monocyte% 7.6 % (0-10); NRBC Flagged by Analyzer 0 % (0-5); Neutrophil % 63.4 % (47-70); Platelet Count 216 K/mm3 (150-450); RBC Distribution Width CV 13.3 % (11.6-14.6); Red Blood Count 5.67 M/mm3 (4.6-6.2); White Blood Count 7.9 K/mm3 (4.4-11.0)
[2024-04-23 12:50] LABS: ALB/GLOB Ratio 0.9 RATIO (0.9-2.4); AST(SGOT) 18 U/L (15-37); Alanine Aminotransfer ALT/SGPT 26 U/L (16-61); Albumin, Serum 3.7 g/dL (3.2-5.0); Alkaline Phosphatase 81 U/L (45-117); Anion Gap 7 (5-15); BUN 18 mg/dL (7-18); BUN/Creat Ratio 16.1 RATIO (10-20); Calcium,Total 9.2 mg/dL (8.5-10.1); Chloride 103 mmol/L (98-107); Cholesterol 193 mg/dL (200); Creatinine, Serum 1.12 mg/dL (0.70-1.30); EST Glomerular Filtration Rate 69 mL/min (>60); Est Glom Filt Rate - Afr Amer 83 mL/min (>60); Globulin 3.9 g/dL (2.2-4.2); Glucose 90 mg/dL (74-106); High Density Lipoprotein 40 mg/dL; Potassium 4.4 mmol/L (3.5-5.1); Protein, Total 7.6 g/dL (6.4-8.2); Sodium Level 136 mmol/L (136-145); Triglycerides 299 mg/dL; Uric Acid 8.6 mg/dL (3.5-7.2); Very Low Density Lipoprotein 60 mg/dL (5-40)
== END | disposition home or self-care (01) ==
LOC: MFPLAB 09:44
PROVIDERS: PCP Family Medicine; Referring Provider Family Medicine; Visit Provider Family Medicine
DX: E78.1 Pure hyperglyceridemia (principal); I42.9 Cardiomyopathy, unspecified; R97.20 Elevated prostate specific antigen [PSA]; M10.9 Gout, unspecified
CPT/HCPCS: 36415; 80053; 80061; 84153; 84550; 85025

== ENCOUNTER → 2024-06-23 | Outpatient (CLI) | payer MEDICARE, OTHER, SELFPAY ==
--- NOTE | 2024-06-23 10:49 | MRI_ITS ---
PROCEDURE: PELVIS W/WO CONTRAST REASON FOR EXAM: Elevated PSA TECHNIQUE: Multiplanar, multisequence MRI of the prostate was performed before and following intravenous gadolinium-based contrast. Axial, coronal, and sagittal high-resolution T2-weighted images, axial T1-weighted images, diffusion-weighted images with high B value, and dynamic postcontrast fat saturated T1-weighted images were performed. CONTRAST: Intravenous Clariscan, 23 cc COMPARISON: None. FINDINGS: Prostate Volume: 50.1 mL (prostate measures 5.2 cm craniocaudally by 4.6 cm in transverse dimension by 4 cm in AP dimension) Transitional zone: BPH nodules with no suspicious abnormalities. Peripheral Zone: No abnormality on ADC and high b-value DWI. Lesion 1: At the apex, right posterolateral peripheral zone, is a 13 mm T2 hypointense lesion with increased DWI and markedly hypointensity on ADC map. PI-RADS 4. Lesion 2: At the apex, left posteromedial peripheral zone is a 12 mm lesion with seen features consistent with PI-RADS 4 lesion. Slight bulging of the posterior prostatic capsule without definite extraprostatic extension Lesion 3: At the apex, border of left anterior peripheral zone and posterolateral peripheral zone, is a 13 mm PI-RADS 4 lesion. Lesion 4: At the mid gland, left posterolateral peripheral zone, is a 13 mm PI- RADS 4 lesion. Seminal vesicles: Normal and symmetric. Neurovascular bundles: Normal and symmetric. Lymph nodes: No lymphadenopathy is identified. Bone marrow: No suspicious lesions. Miscellaneous: Small fat containing inguinal hernias bilaterally. Urinary bladder is unremarkable. MRI/Pelvis W/WO Contrast IMPRESSION: Multiple PI-RADS 4 lesions in the peripheral zone, as detailed above. Reading Location: [facility]
== END | disposition home or self-care (01) ==
LOC: MRI 10:48
PROVIDERS: PCP Family Medicine; Referring Provider Family Medicine; Visit Provider Family Medicine
DX: R97.20 Elevated prostate specific antigen [PSA] (principal)
CPT/HCPCS: 72197; A9575

== ENCOUNTER → 2024-09-20 | Outpatient (CLI) | payer MEDICARE, OTHER, SELFPAY ==
--- NOTE | 2024-09-20 13:00 | PROSB_PTH ---
PATIENT: MORENA ALLRED LOC: [facility] U#:[id number] AGE/SX: 68/M ROOM: RE09/20/[address]: Dr. Avni Sumner MD : 1955 BED: DIS: 09/20/2024 SPEC #: [id number] RECD: 09/20/24 15:00 STATUS: NANCY GUEVARA #: [id number] ELVI: 09/20/24 13:[address]: Avni Sumner DEPT: SURGICAL PATHOLOGY RECD BY: Patrick Blair ENTERED: 09/21/24 09:39 SP TYPE: PROST BX OTHR DR: Dr. Rick Zarate MD Tissues: A - Prostate, NOS Procedures: Surgery Specimen Level IV HEADER OPERATION: Prostate biopsy PRE-OP DIAGNOSIS: Elevated PSA TISSUE SUBMITTED: A- Left mid biopsy MICROSCOPIC DIAGNOSIS A. 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 MICROSCOPIC DESCRIPTION Slides are reviewed. GROSS DESCRIPTION A. Received in formalin in a container labeled with the patient's name, date of , and LM are 4 white wispy core biopsies of soft tissue ranging from 0.9 x 0.1 cm to 1.3 x 0.1 cm. Submitted in toto as follows:A1. 2 coresA2. 2 cores [facility] 09-21-2024 CPT: 80946
== END | disposition home or self-care (01) ==
LOC: LABSPEC 15:39
PROVIDERS: PCP Family Medicine; Referring Provider Urology; Visit Provider Urology
DX: R97.20 Elevated prostate specific antigen [PSA] (principal)
CPT/HCPCS: 88305